=== PATIENT | female | born 1950 | race Caucasian/White ===

== ENCOUNTER 2020-08-28 17:00 | Emergency (ER) | payer SELFPAY ==
[2020-08-28 17:02] VITALS: BP 216/109; PULSE 100; RESP 18; TEMP 36.6; O2SAT 100
[2020-08-28 17:48] VITALS: BP 163/105; PULSE 91; O2SAT 98
--- NOTE | 2020-08-28 18:12 | ED.EYEPROB ---
HPI - Eye Problem General Chief complaint: Eye Problems Stated complaint: left eye blurry Time Seen by Provider: 08/28/20 17:10 Source: patient Mode of arrival: ambulatory Limitations: no limitations History of Present Illness HPI Narrative: 70-year-old with no major medical problems presents to the ER with a complaint of blurred vision to the left eye for past 2 days. Patient states that she woke up with some visual problems in the left eye which is progressively getting worse unable to focus. She denies any history of trauma. No history of any floaters. No previous history of any retinal detachment. chief complaint: vision change Onset (ago): day(s) (2) Onset description: gradual Duration: constant Location: left eye Eye Symptoms: blurry vision Place: home Mechanism: none Severity: mild Associated symptoms: none Related Data Home Medications Medication Instructions Recorded Confirmed No Home Medications 08/28/20 08/28/20 Allergies Allergy/AdvReac Type Severity Reaction Status Date / Time codeine Allergy Nausea and Verified 08/28/20 17:41 Vomiting Review of Systems Review of Systems: All systems reviewed & are unremarkable except as noted in HPI and below Constitutional: Constitutional: Reports no additional constitutional complaints Eyes: Eyes: Reports as per HPI ENT: Reports system reviewed and no additional complaints, except as documented Cardiovascular: Cardiovascular: Reports no additional cardiovascular complaints Respiratory: Respiratory: Reports no additional respiratory complaints Gastrointestinal: Gastrointestinal: Reports no additional gastrointestinal complaints Genitourinary: Genitourinary: Reports no additional female genitourinary complaints Musculoskeletal: Musculoskeletal: Reports no additional musculoskeletal complaints Neurologic: Reports system reviewed and no additional complaints, except as documented PMFSH Social History Social History Gender identity (if verbalized by the patient): Male Exam Narrative: Exam Narrative: GENERAL: Well-appearing, well-nourished, and in no acute distress. HEAD: Normocephalic, atraumatic. EYES: PERRLA and EOMI. fundus on the left side was hard to identify secondary to opacification of the lens ENT: Nares clear, no rhinorrhea or epistaxis. Mucous membranes moist. NECK: Supple. CHEST: Clear to auscultation. No respiratory distress. HEART: Regular rate and rhythm. No murmur heard. Normal peripheral pulses. EXTREMITIES: Normal range of motion. No edema. SKIN: Warm, dry, no rash. NEURO: No focal deficits. Alert and oriented x3. PSYCH: Normal mood and affect. Course Course Emergency Course: I discussed with Dr. Pérez ophthalmology at [facility] recommended patient to be transferred to the ER for evaluation. I discussed with the patient and her family they are willing to take her to the ER at this time. Vital Signs Vital signs: Vital Signs Temperature 36.6 C 08/28/20 17:02 Pulse Rate 100 08/28/20 17:02 Respiratory Rate 18 08/28/20 17:02 Blood Pressure 216/109 H 08/28/20 17:02 Pulse Oximetry 100 08/28/20 17:02 Temperature 36.6 C 08/28/20 17:02 Pulse Rate 91 08/28/20 17:48 Respiratory Rate 18 08/28/20 17:02 Blood Pressure 163/105 H 08/28/20 17:48 Pulse Oximetry 98 08/28/20 17:48 Discharge Plan Discharge Clinical Impression: Blurred vision, left eye Patient Disposition: Home, Self-Care Condition: Stable Instructions: Blurred Vision (ED) Additional Instructions: Advised to follow with Ophthalmology at [facility] ask for Dr. Pérez Prescriptions: No Action No Home Medications RF: 0 Follow-up/Referrals: PHYSICIAN,FLAG CAR DRIVER [Primary Care Provider] - Time of Disposition: 18:14
== END 2020-08-28 18:25 | disposition home or self-care (01) ==
PROVIDERS: Emergency Provider Family Medicine
DX: H53.8 Other visual disturbances (principal)
CPT/HCPCS: 99281

== ENCOUNTER 2022-07-18 14:06 | Inpatient (IN) | payer MEDICARE, SELFPAY ==
[2022-07-18] VITALS (19 sets, daily range): BP systolic 160–199; BP diastolic 80–106; PULSE 83–122; RESP 16–28; TEMP 36.4–37.1; O2SAT 90–100; BMI 30.5
--- NOTE | ~2022-07-18 | XR_ITS ---
XR chest 1V DATE: 07/18/2022 15:07 INDICATION: Fall. Shortness of breath. Chest pain since fall. TECHNIQUE: AP view COMPARISON: None FINDINGS: Heart size appears within normal limits. Is aortic arch calcification. No hilar or mediasti nal enlargement. No pulmonary infiltrate or consolidation, pleural effusion or pulmonary vascular congestion or pneumo thorax. There is osteopenia. IMPRESSION: No active cardiopulmonary disease Reviewed, dictated and finalized at location B.
--- NOTE | ~2022-07-18 | XR_ITS ---
XR surgery orthopedic DATE: 07/19/2022 19:11 INDICATION: ORIF left subcapital femoral neck fracture TECHNIQUE: 4 spot C-arm images of left hip 1 minute 26 seconds total exposure time [id number] mGym2 total dose area product COMPARISON: 07/18/2022 CDT left hip FINDINGS: There are 3 lag screws traversing the intertrochanteric area and femoral neck, terminating in the left femoral head, providing virtually anatomic position and alignment at the left subcapital femoral neck fracture. IMPRESSION: ORIF left subcapital femoral neck fracture Reviewed, dictated and finalized at Location A. Reviewed, dictated and finalized at location A.
--- NOTE | ~2022-07-18 | CT_ITS ---
CT OF left hip EXAMINATION: CT hip LT wo con DATE: 07/18/2022 17:25 INDICATION: Left hip fracture, surgical planning TECHNIQUE: Computed tomography (CT) of the left hip was performed without intravenous contrast. Autom ated exposure control and iterative reconstruction technique were employed. The dose-length product w as 515.94 mGy-cm. COMPARISON: X-ray left hip, same date FINDINGS: Distended urinary bladder. Atherosclerotic arterial calcifications. Osteopenia. Degenerative changes in the left hip. Minimally comminuted subcapital fracture of the left proximal femur, with minimal la teral and posterior angulation. No other fracture detected. IMPRESSION: Minimally angulated subcapital fracture of the left proximal femur. Reviewed, dictated and finalized at location K.
--- NOTE | ~2022-07-18 | XR_ITS ---
EXAMINATION: XR hip LT 2V w AP pelvis DATE: 07/23/2022 13:35 INDICATION: Left hip pain. TECHNIQUE: An anteroposterior view of the pelvis and 2 views of left hip were obtained. COMPARISON: Pelvis and left hip radiographs 07/18/2022 FINDINGS: There is a subcapital fracture of left femoral neck in near-anatomic alignment status post fixation with 3 lag screws. There is mild osteoarthritis of the hips. IMPRESSION: 1. Unchanged subcapital fracture of left femoral neck with internal fixation. 2. Mild osteoarthritis of the hips. Reviewed, dictated and finalized at location A.
--- NOTE | ~2022-07-18 | XR_ITS ---
EXAM: XR hip LT 2V w AP pelvis DATE: 07/18/2022 15:07 HISTORY: fall/pain, LEG TURNED OUT, LATERAL PAIN . COMPARISON: None available. FINDINGS: Normal mineralization. Subtle transverse subcapital lucency. No lytic or blastic lesion. D egenerative lumbar disc disease. Bilateral hip arthritis. No erosion or periosteal change. Soft tissu es within normal limits. IMPRESSION: Nondisplaced subcapital fracture of the left hip. Reviewed, dictated and finalized at location K.
[2022-07-18] MEDS: MORPHINE SULFATE (*CRX) 4 MG/ML INJ IV PUSH (14:30)
[2022-07-18 14:41] LABS: Basophils Absolute Auto 0.1 K/mm3 (0.0-0.1); Basophils Percent Auto 0.7 % (0.2-1.2); Eosinophils Absolute Auto 0.1 K/mm3 (0-0.3); Eosinophils Percent Auto 1.5 % (0-4.4); Hematocrit 42.1 % (37.0-47.0); Hemoglobin 14.7 g/dL (12.0-15.0); Immature Granulocyte Absolute 0.07 K/mm3 (0.00-0.031); Immature Granulocyte Percent A 0.9 % (0-0.5); Lymphocytes Absolute Auto 2.61 K/mm3 (0.9-3.2); Lymphocytes Percent Auto 32.6 % (18.3-44.2); Mean Corpuscular HGB Conc 34.9 g/dl (32-36); Mean Corpuscular Hemoglobin 31.7 pg (26-34); Mean Corpuscular Volume 90.7 fl (80-100); Mean Platelet Volume 9.8 fl (7.4-10.4); Monocytes Absolute Auto 0.6 K/mm3 (0.1-0.6); Monocytes Percent Auto 7.6 % (2.6-8.5); Neutrophils Absolute Auto 4.5 K/mm3 (1.3-6.7); Neutrophils Percent Auto 56.7 % (45.5-73.1); Platelet Count Result 243 k/mm3 (150-375); Red Blood Count 4.64 M/mm3 (4.2-5.4); Red Cell Distribution Width 12.9 % (11.5-14.5)
[2022-07-18 14:50] LABS: Prothrombin Time 13.2 Seconds (11.1-14.7)
[2022-07-18 14:52] LABS: Partial Thromboplastin Time 25.9 SECONDS (22.3-36.8)
[2022-07-18 14:53] LABS: Alanine Aminotransferase 48 U/L (6-35); Albumin Level 4.5 g/dL (3.5-5.1); Alkaline Phosphatase 65 U/L (38-126); Anion Gap 9 mmol/L (8-16); Aspartate Amino Transferase 50 U/L (14-36); Bilirubin,Total 0.6 mg/dL (0.2-1.3); Blood Urea Nitrogen 15 mg/dL (7-17); Calcium 9.5 mg/dL (8.4-10.2); Carbon Dioxide 25 mmol/L (22-30); Chloride 106 mmol/L (98-107); Estimated CRCL calculation 57 ml/min; Estimated Glomerular Filt Rate > 60; Glucose 97 mg/dL (65-110); Potassium 3.9 mmol/L (3.4-5.0); Sodium 140 mmol/L (137-145)
[2022-07-18 14:57] LABS: Appearance Urine Clear (Clear); Bacteria Urine None Seen /hpf; Bilirubin Urine Negative (Negative); Blood Urine 1+ (Negative); Color Urine Yellow (Yellow); Glucose Urine UA Negative (Negative); Ketones Urine Negative (Negative); Leukocyte Esterase Ur Negative LEU/UL (Negative); Nitrate Urine Negative (Negative); Non Pathogenic Casts 0-2; Protein Urine Negative (Negative); Specific Grav Ur 1.006 (1.001-1.035); Squamous Epithelial Cell Urine None seen /hpf (Few); Urobilinogen Urine 0.2 mg/dL (<2.0); WBC Urine 0-5 /hpf; pH Urine 6.5 (5.0-9.0)
[2022-07-18 15:17] LABS: Add Urine Microscopic? YES
[2022-07-18] MEDS: ONDANSETRON INJ 4 MG/2 ML VIAL (16:12)
--- NOTE | 2022-07-18 16:13 | ED.FALL ---
HPI - Fall General Chief Complaint: Fall Stated Complaint: fall/femur pain Time Seen by Provider: 07/18/22 14:14 History of Present Illness HPI Narrative: Patient is a 72-year-old female who presents ER with left hip pain. She tripped and fell while bringing in her groceries. Unable to stand up due to pain in her hip. She did not strike her head or lose consciousness. No fevers or chills or sweats. Has no numbness or tingling to the affected extremity. Related Data Home Medications Medication Instructions Recorded Confirmed No Home Medications 08/28/20 07/18/22 Allergies Allergy/AdvReac Type Severity Reaction Status Date / Time codeine Allergy Nausea and Verified 07/18/22 14:38 Vomiting Review of Systems Review of Systems: All systems reviewed & are unremarkable except as noted in HPI and below Constitutional: Constitutional: Denies chills, Denies fatigue and Denies fever(s) Cardiovascular: Cardiovascular: Denies chest pain and Denies rapid heart rate Gastrointestinal: Gastrointestinal: Denies abdominal pain, Denies nausea and Denies vomiting Musculoskeletal: Musculoskeletal: Denies myalgias, Reports arthralgias and Denies joint swelling Neurologic: Denies syncope, Denies headache(s), Denies focal weakness and Denies numbness PMFSH Past Medical History Medical History (Updated 07/18/22 @ 21:46 by Cipriano Ames MD) Tobacco dependence Surgical History Surgical History (Updated 07/18/22 @ 21:05 by Ju Avila PA-C) No history of previous surgery Family History Family History (Updated 07/18/22 @ 21:05 by Ju Avila PA-C) Other Heart disease Hypertension Social History Social History (Updated 07/18/22 @ 21:05 by Ju Avila PA-C) Social History: Surrogate medical decision maker: Miguel Hines, son. Code status: Full code. Smoking packs per day: 1 Smoking cigarettes per day: 20.0 Smoking status: Current every day smoker Tobacco type: cigarettes Alcohol intake: never Substance use: never Lack of Transportation: No Lack of Food: Never True Current Housing: I Have Housing Concerned About Future Housing: No Difficulty Paying Gas/Electric Bills: No Difficulty Paying for Meds: No Currently Unemployed: No Education: High School Diploma/GED Difficulty w/ Childcare or Family Care: No Additional living arrangements comments: Lives in [place] with son. Additional occupation/education comments: Retired. Spiritual care concerns: No Exam Narrative: GENERAL: Well-appearing, well-nourished, and in no acute distress. HEAD: Normocephalic, atraumatic. EYES: PERRL and EOMI. ENT: Mucous membranes moist. CHEST: Clear to auscultation. No respiratory distress. HEART: Regular rate and rhythm. Normal peripheral pulses. ABDOMEN: Soft, nontender, nondistended. EXTREMITIES: Left lower extremity tenderness at the hip and unable to perform range of motion due to pain. No shortening or external rotation. Normal upper extremities. SKIN: Warm, dry, no rash. NEURO: Alert and oriented x3. PSYCH: Normal mood and affect. Course Course Emergency Course: Patient made aware of diagnosis and treatment plan. Admit to the hospitalist service. Orthopedic surgery Dr. Barclay will be caring for the fractured hip. Vital Signs Vital signs: Vital Signs Temperature 98 F 07/18/22 14:10 Pulse Rate 91 07/18/22 14:10 Respiratory Rate 18 07/18/22 14:10 Blood Pressure 198/93 H 07/18/22 14:10 Pulse Oximetry 100 07/18/22 14:10 Oxygen Delivery Room Air 07/18/22 14:10 Temperature 97.6 F 07/18/22 20:50 Pulse Rate 95 07/18/22 20:50 Respiratory Rate 16 07/18/22 20:50 Blood Pressure 160/90 H 07/18/22 20:50 Pulse Oximetry 93 07/18/22 20:50 Oxygen Delivery Room Air 07/18/22 18:57 MDM - Fall Lab Data 07/18/22 14:33 07/18/22 14:33 Labs: Lab Results 07/18/22 07/18/22
--- NOTE | 2022-07-18 16:26 | ECG_ITS ---
Measurements Intervals [place] Rate: 104 P: 41 [place]: 140 QRS: -5 QRSD: 99 T: 24 QT: 349 QTc: 459 Interpretive Statements SINUS TACHYCARDIA DELAYED PRECORDIAL R/S TRANSITION BORDERLINE ECG NO PREVIOUS ECG AVAILABLE FOR COMPARISON Electronically Signed On 07-18-2022 20:54:46 CDT by Randall Dalal D.O.
--- NOTE | 2022-07-18 17:00 | PM.IMHP ---
H&P: HPI History of Present Illness Date/Time: 07/18/22 17:00 Chief Complaint: Left hip pain after fall. Narrative: This is a pleasant 72-year-old female smoker with no reported medical problems (she has not seen a doctor for over 20 years) who presented to the emergency department via EMS from home for evaluation of left hip pain after fall. Patient provides the following history. Not long prior to arrival she was caring groceries into the house, lost her balance, and fell onto her left side. She had immediate pain in her left hip and was unable to get herself up. Son was able to get her into a chair but she was unable to bear weight and the ambulance was called. She was found to have a left subcapital fracture and she is being admitted in this setting. She sustained no other injuries in the fall and states there was no head trauma or loss of consciousness. There were no antecedent symptoms prior to the fall and she states it was purely mechanical. Her pain is manageable as long as she is not moving. She has pretty significant shooting pain in the hip with any movement, however. She denies paresthesias, skin color, and temperature changes distal to the fracture site. She was afebrile on arrival to the ED. Blood pressures have been persistently elevated in the 160s to 180 systolic. The rest of her vital signs have been stable. Labs were pretty unremarkable aside from mild AST and ALT elevation. Chest x-ray showed no acute cardiopulmonary disease. EKG showed sinus tachycardia with delayed precordial R/S transition. She is being admitted in this setting for surgical repair per Dr. Sanford. Review of Systems Review of Systems: Twelve systems were reviewed. No fever, chills, or sweats. No recent cold or flu symptoms. No exertional chest pain or shortness of breath. No history of venous thromboembolism. Except as documented, all other systems were reviewed and are negative. [facility] Past Medical History Medical History (Updated 07/18/22 @ 21:05 by Ju Avila PA-C) Tobacco dependence Surgical History Surgical History (Updated 07/18/22 @ 21:05 by Ju Avila PA-C) No history of previous surgery Family History Family History (Updated 07/18/22 @ 21:05 by Ju Avila PA-C) Other Heart disease Hypertension Social History Social History (Updated 07/18/22 @ 21:05 by Ju Avila PA-C) Social History: Surrogate medical decision maker: Miguel Hines, son. Code status: Full code. Smoking packs per day: 1 Smoking cigarettes per day: 20.0 Smoking status: Current every day smoker Tobacco type: cigarettes Alcohol intake: never Substance use: never Lack of Transportation: No Lack of Food: Never True Current Housing: I Have Housing Concerned About Future Housing: No Difficulty Paying Gas/Electric Bills: No Difficulty Paying for Meds: No Currently Unemployed: No Education: High School Diploma/GED Difficulty w/ Childcare or Family Care: No Additional living arrangements comments: Lives in [place] with son. Additional occupation/education comments: Retired. Spiritual care concerns: No Meds Home Medications and Allergies Home Medications Medication Instructions Recorded Confirmed Type No Home Medications 08/28/20 07/18/22 History Allergies Allergy/AdvReac Type Severity Reaction Status Date / Time codeine Allergy Nausea and Verified 07/18/22 14:38 Vomiting Vital Signs Vital Signs - 24 hr 07/18/22 14:10 07/18/22 14:38 07/18/22 14:45 Temperature 98 F Pulse Rate 91 83 Respiratory Rate 18 26 H Blood Pressure 198/93 H Pulse Oximetry 100 100 100 Oxygen Delivery Room Air 07/18/22 15:07 07/18/22 15:15 07/18/22 15:30 Temperature Pulse Rate 97 90 122 H Respiratory Rate 24 H 20 19 Blood Pressure Pulse Oximetry 95 97 96 Oxygen Delivery 07/18/22 15:45 07/18/22 15:48 07/18/22 15:49 Temperature Pulse Rate
[2022-07-18] MEDS: ONDANSETRON INJ 4 MG/2 ML VIAL IV PUSH (17:11)
--- NOTE | 2022-07-18 18:48 | ADMGEN ---
This patient, Amy Bee, was admitted to Medical Room 251-. Patient/family oriented to hospital policies and general routines including ID bracelet, bed and alarms, visiting hours, pain management, procedures, bathroom and other care routines, personal items, smoking policy, room service/diet, and visiting hours. Information on how to activate the Rapid Response Team has been discussed. Patient/Family are encouraged to report perceived risks to care and to ask questions if they do not understand what they are told or what they should do.
[2022-07-19] VITALS (13 sets, daily range): BP systolic 112–189; BP diastolic 77–100; PULSE 96–122; RESP 16–26; TEMP 36.7–37.8; O2SAT 91–99
[2022-07-19 05:55] LABS: Hematocrit 42.3 % (37.0-47.0); Hemoglobin 14.8 g/dL (12.0-15.0); Mean Corpuscular Hemoglobin 32.6 pg (26-34); Mean Corpuscular Volume 93.2 fl (80-100); Mean Platelet Volume 10.1 fl (7.4-10.4); Platelet Count Result 215 k/mm3 (150-375); Red Blood Count 4.54 M/mm3 (4.2-5.4)
[2022-07-19 06:09] LABS: Alanine Aminotransferase 44 U/L (6-35); Albumin Level 4.5 g/dL (3.5-5.1); Alkaline Phosphatase 58 U/L (38-126); Anion Gap 8 mmol/L (8-16); Aspartate Amino Transferase 43 U/L (14-36); Bilirubin,Total 0.7 mg/dL (0.2-1.3); Blood Urea Nitrogen 15 mg/dL (7-17); Calcium 9.2 mg/dL (8.4-10.2); Carbon Dioxide 26 mmol/L (22-30); Chloride 105 mmol/L (98-107); Estimated CRCL calculation 64 ml/min; Estimated Glomerular Filt Rate > 60; Glucose 119 mg/dL (65-110); Magnesium 2.2 mg/dL (1.6-2.3); Potassium 3.8 mmol/L (3.4-5.0); Sodium 139 mmol/L (137-145)
[2022-07-19 06:49] LABS: Thyroid Stimulating Hormone Reflex 0.864 uIU/mL (0.465-4.68)
--- NOTE | 2022-07-19 07:34 | PM.CNOR ---
Assessment and Plan Assessment and plan (1) Subcapital fracture of left hip: Code(s): S72.012A - Unspecified intracapsular fracture of left femur, initial encounter for closed fracture Status: Acute Assessment and Plan: Patient is a 72-year-old female who fell yesterday could not get up due to severe pain in the left hip was brought to the emergency room and x-rays demonstrated a mildly valgus impacted otherwise nondisplaced left subcapital femoral neck fracture. CT scan performed showed slight comminution in the area of impaction anteriorly but overall acceptable mild valgus alignment. No lytic lesion noted. She was admitted last evening with plans to repair the hip fracture today. She never sees a doctor. She states she is stop her. She smokes a pack of cigarettes per day. She denies drinking alcohol. Her liver enzymes are mildly elevated AST and ALT a little bit improved today compared to yesterday. She denies any history of chest pain or shortness of breath problems. Laboratory studies are otherwise unremarkable. White count up to 13 this morning which is consistent with stress of having a fracture. Urinalysis was unremarkable. Creatinine 0.7 Her glucose was mildly elevated today 119. On examination there was no rotational deformity of the left leg. She has palpable pedal pulses the skin looks normal. There is no obvious bruising that I can see in the side of the hip. She does have severe pain in the hip and groin area with the slightest movement of her left foot. She denies numbness or tingling to light touch testing in left foot. She does have a bruise over the lateral aspect of her left elbow but has full range of motion of the elbow without discomfort. She denies any other injury. Impression: Patient has mild valgus impacted left subcapital femoral neck fracture which is in satisfactory position to consider screw fixation insight to as definitive treatment for this fracture and that would be my recommendation to her. I have discussed with her that she is at some increased risk of nonunion of her fracture and avascular necrosis because of her chronic smoking history and medical complications such as blood clots. We will apply SCDs and see if she can tolerate that. If she cannot then we will wait until after surgery which is planned for this afternoon. I have discussed the possibility that if she develops nonunion she may require a partial hip replacement. She is at increased risk for complications of that surgery because of her, chronic smoking history as well. I would recommend that she stop smoking completely at this time. We will check a 25 hydroxy vitamin-D level. Risks of surgery include medical complications such as heart attack stroke pulmonary embolism and . Not stabilizing the fracture would have an unacceptably high risk of displacement nonunion and other complications. We will proceed this afternoon as discussed. History of Present Illness HPI Consult date: 07/19/22 Chief complaint: hip fracture [facility] Past Medical History Medical History (Updated 07/18/22 @ 21:46 by Cipriano Ames MD) Tobacco dependence Surgical History Surgical History (Updated 07/18/22 @ 21:05 by Ju Avila PA-C) No history of previous surgery Family History Family History (Updated 07/18/22 @ 21:05 by Ju Avila PA-C) Other Heart disease Hypertension Social History Social History (Updated 07/18/22 @ 21:05 by Ju Avila PA-C) Social History: Surrogate medical decision maker: Miguel Hines, son. Code status: Full code. Smoking packs per day: 1 Smoking cigarettes per day: 20.0 Smoking status: Current every day smoker Tobacco type: cigarettes Alcohol intake: never Substance use: never Lack of Transportation: No Lack of Food: Never True Current Housing: I Have Housing Concerned About Future Housing: No Difficulty Paying Gas/Electric Bills:
[2022-07-19 08:19] LABS: Vitamin D 25 Hydroxy 46.5 ng/mL
[2022-07-19] MEDS: hydrALAZINE HCL 20 MG/ML VIAL 10 MG IV PUSH (08:19)
--- NOTE | 2022-07-19 08:30 | PM.IMPN ---
Progress Note: A&P Assessment and Plan (1) Subcapital fracture of left hip: Code(s): S72.012A - Unspecified intracapsular fracture of left femur, initial encounter for closed fracture Status: Acute Assessment and Plan: POD 0 hip x-ray shows nondisplaced the capital fracture of the left hip hip CT shows minimally angulated subcapital fracture left proximal femur orthopedics has been consulted DVT prophylaxis per ortho pain medications on board postop care per Ortho PT and OT when appropriate surgical intervention scheduled for this afternoon (2) Fall from ground level: Code(s): W18.30XA - Fall on same level, unspecified, initial encounter Status: Acute Assessment and Plan: fall precautions PT and OT when appropriate (3) Elevated blood pressure reading: Code(s): R03.0 - Elevated blood-pressure reading, without diagnosis of hypertension Status: Acute Assessment and Plan: blood pressure 182/84 today no home medications elevation could be contributed by pain p.r.n. hydralazine for now continue trend consider initiation of control postop and with pain control (4) Elevated LFTs: Code(s): R79.89 - Other specified abnormal findings of blood chemistry Status: Acute Assessment and Plan: AST/ALT 43/44 today mild elevation patient is a known drinker patient to follow-up outpatient will continue trend (5) Tobacco dependence: Code(s): F17.200 - Nicotine dependence, unspecified, uncomplicated Status: Acute Assessment and Plan: smoking cessation education has been given patch and gum available p.r.n. Time Spent With Patient Time: 51 minutes Time with patient: Greater than 35 minutes Subjective Date/time seen: 07/19/22829 Interval history: 07/19/22829 Patient was lying in bed. She did state that she feels terrible. She also stated that she is feeling better than she was however she is still having some pain. She denies any chest pain, shortness a breath, nausea, vomiting, diarrhea or constipation. Labs and vital signs remained stable. Patient is scheduled for surgical intervention to day with Dr. Sanford. 07/18/22? 17:00 This is a pleasant 72-year-old female smoker with no reported medical problems (she has not seen a doctor for over 20 years) who presented to the emergency department via EMS from home for evaluation of left hip pain after fall. Patient provides the following history. Not long prior to arrival she was caring groceries into the house, lost her balance, and fell onto her left side. She had immediate pain in her left hip and was unable to get herself up. Son was able to get her into a chair but she was unable to bear weight and the ambulance was called. She was found to have a left subcapital fracture and she is being admitted in this setting. She sustained no other injuries in the fall and states there was no head trauma or loss of consciousness. There were no antecedent symptoms prior to the fall and she states it was purely mechanical. Her pain is manageable as long as she is not moving. She has pretty significant shooting pain in the hip with any movement, however. She denies paresthesias, skin color, and temperature changes distal to the fracture site. She was afebrile on arrival to the ED. Blood pressures have been persistently elevated in the 160s to 180 systolic. The rest of her vital signs have been stable. Labs were pretty unremarkable aside from mild AST and ALT elevation. Chest x-ray showed no acute cardiopulmonary disease. EKG showed sinus tachycardia with delayed precordial R/S transition. She is being admitted in this setting for surgical repair per Dr. Sanford. Review of Systems Review of Systems: All systems reviewed & are unremarkable except as noted in HPI and be
--- NOTE | 2022-07-19 11:14 | PC.NURSE ---
On 07/19/22, the student, [Scott Tavares], provided care and completed [facility] documentation on this patient. I have reviewed the student's documentation and agree with the findings.
[2022-07-19] MEDS: LACTATED RINGERS 1,000 ML 30 ML IV CONT ×3 (15:25→19:07)
--- NOTE | 2022-07-19 16:12 | WPDHPUPDATE1 ---
History and Physical Update Update Date/Time: 07/19/22 16:12 History and Physical has been reviewed, including an updated exam of the patient. There are NO changes in the patient's condition. Risks, benefits, and alternatives have been discussed and questions answered. Patient agrees to proceed with procedure.
--- NOTE | 2022-07-19 16:14 | WPDHPUPDATE1 ---
History and Physical Update Update Date/Time: 07/19/22 16:14 History and Physical has been reviewed, including an updated exam of the patient. There are NO changes in the patient's condition. Risks, benefits, and alternatives have been discussed and questions answered. Patient agrees to proceed with procedure.
--- NOTE | 2022-07-19 17:40 | WPDANESEPPF ---
Anes - Initial Pre Proc Eval Procedure: Operation Date: 07/19/22 16:30 Proposed Procedures p Left Hip Pinning - Richie Sanford MD Date/Time: 07/19/22 17:40 Surgeon: Phill Asif MD Pre Op Diagnosis: hip fracture Patient Data Age: 72 Gender: F Height: 1.63 m Weight: 81.9 kg Last Vital Signs Temp 37.0 C 07/19/22 15:34 Pulse 100 07/19/22 15:34 Resp 18 07/19/22 15:34 BP 176/93 H 07/19/22 15:34 Pulse Ox 94 07/19/22 15:34 O2 Del Method Room Air 07/19/22 15:34 Allergies Allergy/AdvReac Type Severity Reaction Status Date / Time codeine Allergy Nausea and Verified 07/19/22 15:26 Vomiting Home Medications Medication Instructions Recorded Confirmed Type No Home Medications 08/28/20 07/18/22 History Laboratory Tests 07/19/22 07/19/22 07/19/22 05:27 05:33 05:33 WBC 13.0 K/mm3 H K/mm3 (4.5-10.0) RBC 4.54 M/mm3 M/mm3 (4.2-5.4) Hgb 14.8 g/dL g/dL (12.0-15.0) Hct 42.3 % % (37.0-47.0) MCV 93.2 fl fl (80-100) MCH 32.6 pg pg (26-34) MCHC 35.0 g/dl g/dl (32-36) RDW 13.0 % % (11.5-14.5) Plt Count 215 k/mm3 k/mm3 (150-375) MPV 10.1 fl fl (7.4-10.4) Sodium 139 mmol/L mmol/L (137-145) Potassium 3.8 mmol/L mmol/L (3.4-5.0) Chloride 105 mmol/L mmol/L (98-107) Carbon Dioxide 26 mmol/L mmol/L (22-30) Anion Gap 8 mmol/L mmol/L (8-16) BUN 15 mg/dL mg/dL (7-17) Creatinine 0.70 mg/dL mg/dL (0.7-1.0) Estim Creat Clear Calc 64 ml/min ml/min Estimated GFR > 60 (59 - ) Glucose 119 mg/dL H mg/dL (65-110) Calcium 9.2 mg/dL mg/dL (8.4-10.2) Magnesium 2.2 mg/dL mg/dL (1.6-2.3) Total Bilirubin 0.7 mg/dL mg/dL (0.2-1.3) AST 43 U/L H U/L (14-36) ALT 44 U/L H U/L (6-35) Alkaline Phosphatase 58 U/L U/L (38-126) Total Protein 8.0 g/dL g/dL (6.3-8.2) Albumin 4.5 g/dL g/dL (3.5-5.1) Vitamin D 25-Hydroxy 46.5 ng/mL ng/mL TSH (Reflex) 07/19/22 05:33 WBC RBC Hgb Hct MCV MCH MCHC RDW Plt Count MPV Sodium Potassium Chloride Carbon Dioxide Anion Gap BUN Creatinine Estim Creat Clear Calc Estimated GFR Glucose Calcium Magnesium Total Bilirubin AST ALT Alkaline Phosphatase Total Protein Albumin Vitamin D 25-Hydroxy TSH (Reflex) 0.864 uIU/mL uIU/mL (0.465-4.68) Patient hx anesthesia problems: none Family hx anesthesia problems: none Results Review: All pre-operative results and documents have been reviewed as part of the pre-operative evaluation. [facility] Past Medical History Medical History Tobacco dependence Surgical History Surgical History No history of previous surgery Family History Family History Other Heart disease Hypertension Social History Social History Social History: Surrogate medical decision maker: Miguel Hines, son. Code status: Full code. Smoking packs per day: 1 Smoking cigarettes per day: 20.0 Smoking status: Current every day smoker Tobacco type: cigarettes Alcohol intake: never Substance use: never Lack of Transportation: No Lack of Food: Never True Current Housing: I Have Housing Concerned About Future Housing: No Difficulty Paying Gas/Electric Bills: No Difficulty Paying for Meds: No Currently Unemployed: No Education: High School Diploma/GED Diffic
[2022-07-19] MEDS: ceFAZolin 2 GM/D5W 50 ML 2 GM/50 ML BAG IVPB (17:52)
[2022-07-19] MEDS: ceFAZolin SODIUM 1 GM VIAL (18:25)
--- NOTE | 2022-07-19 18:50 | SUR.OPER ---
3 CANNULATED 7.0 CANNULATED SCREWS AOS/[id number], [id number] LEFT HIP
--- NOTE | 2022-07-19 18:52 | W.PM.PROC2 ---
Procedure Note - Detailed Date of Procedure 07/19/22 Pre-op Diagnosis Minimally impacted left subcapital femoral neck fracture Post-op Diagnosis Same Procedure Performed Screw fixation insight to left subcapital femoral neck fracture Surgeon Richie Sanford MD Anesthesia General Description of Procedure Patient was brought to the operating room and general anesthesia was administered. Left hip was scrubbed with the chlorhexidine cloth. She was transferred to the fracture table boot applied the foot without traction the right hip flex abduct out of the way and the left hip prepped draped usual fashion. A 1 in incision was made over the lateral thigh using fluoroscopy to assist in locating this. After skin incision 10 cc 1% plain lidocaine were injected in the soft tissues for local anesthesia. A guide pin using the Arthrex 7.0 cannulated hip screw system was inserted inferiorly centrally a 2nd guide pin a little bit posterior and superior and 3rd anterior superior. We measured drilled and placed 37.0 mm Arthrex hip screws the 85 mm inferiorly and 2 75 mm srews superiorly. Each screw had surprisingly good purchase. The screws were left each greater than 5 mm from subchondral bone. Fluoroscopic imaging through a circular arc confirmed absence of penetration screw through femoral head. Guide pins removed wound irrigated with antibiotic solution closed with 2 subcutaneous Vicryl and glue EBL was less than 5 cc. She was transferred postop recovery room in good condition. She tolerated the anesthesia well.
--- NOTE | 2022-07-19 18:59 | SUR.OPER ---
SEE ANESTHESIA RECORD FOR POOR DENTITION. VERIFIED LOOSE TEETH PRIOR TO INTUBATION
--- NOTE | 2022-07-19 19:11 | SUR.OPER ---
ALL LOOSE TEETH INTACT POST EXTUBATION SEE ANESTHESIA RECORD VERIFIED WITH ANESTHESIA.
[2022-07-19] MEDS: ACETAMINOPHEN 325 MG TABLET 650 MG PO (20:39)
[2022-07-19] MEDS: oxyCODONE HCL (*CRX) 2.5 MG TAB IR PO (20:39)
[2022-07-19] MEDS: SODIUM CHLORIDE 0.9% IV 1,000 ML 125 ML IV CONT (20:40)
[2022-07-20 00:33] VITALS: BP 165/91; PULSE 100; RESP 16; TEMP 36.7; O2SAT 92
[2022-07-20] MEDS: oxyCODONE HCL (*CRX) 2.5 MG TAB IR PO ×3 (01:28→11:16)
[2022-07-20] MEDS: ceFAZolin 1 GM/NS 50 ML 1 GM/50 ML BAG IVPB ×3 (01:28→17:02)
[2022-07-20] MEDS: IBUPROFEN IV 800 MG/200 ML 800 MG/200 ML BAG 400 MG IVPB (02:39)
[2022-07-20] MEDS: ACETAMINOPHEN 325 MG TABLET 650 MG PO ×2 (05:42→17:01)
[2022-07-20 07:00] VITALS: BP 172/89; PULSE 97; RESP 18; TEMP 36.4; O2SAT 91
--- NOTE | 2022-07-20 07:37 | PM.PNORT ---
Subjective Subjective Date/Time Seen: 07/20/22 07:37 postop day 1 patient is alert. She is afebrile, blood pressure still elevated. Pain overall is well controlled. Incision is dry. Neurovascularly she is intact. She has not been out of bed yet. Therapy will work with her today. I talked with the patient about discharge. We will see how she does the next day or 2 with physical therapy and whether not she is doing well enough to go home on her own with her son or whether not she may need to go to a rehab facility depending on how she does. Morning labs are noted Objective Data Vital Signs Vital Signs: Vital Signs - 24 hr 07/19/22 08:00 07/19/22 09:40 07/19/22 13:50 Temperature 37.8 C H Pulse Rate 96 102 H Respiratory Rate 16 16 Blood Pressure 178/77 H Pulse Oximetry 94 96 Oxygen Delivery Room Air Room Air Oxygen Flow Rate 07/19/22 15:34 07/19/22 19:07 07/19/22 19:20 Temperature 37.0 C 36.8 C Pulse Rate 100 122 H 118 H Respiratory Rate 18 26 H 19 Blood Pressure 176/93 H 112/78 189/86 H Pulse Oximetry 94 97 98 Oxygen Delivery Room Air Simple Face Mask Simple Face Mask Oxygen Flow Rate 6 6 07/19/22 19:35 07/19/22 19:50 07/19/22 20:25 Temperature 36.8 C Pulse Rate 112 H 111 H 105 H Respiratory Rate 19 21 H 16 Blood Pressure 176/100 H 172/99 H 187/95 H Pulse Oximetry 96 96 99 Oxygen Delivery Nasal Cannula Nasal Cannula Oxygen Flow Rate 2 2 07/19/22 20:48 07/19/22 22:05 07/19/22 23:09 Temperature 36.9 C 36.7 C 36.8 C Pulse Rate 103 H 102 H 103 H Respiratory Rate 16 16 16 Blood Pressure 177/91 H 186/90 H 185/93 H Pulse Oximetry 93 91 95 Oxygen Delivery Oxygen Flow Rate 07/19/22 20:00 07/20/22 00:33 Temperature 36.7 C Pulse Rate 100 Respiratory Rate 16 Blood Pressure 165/91 H Pulse Oximetry 95 92 Oxygen Delivery Nasal Cannula Oxygen Flow Rate 1 Intake/Output Intake/Output: Intake & Output 07/17/22 07/18/22 07/19/22 07/20/22 23:59 23:59 23:59 23:59 Intake Total 525 Output Total 700 Balance -175 Meds/Results Medications: Active Medications Generic Name Dose Route Start Last Admin Trade Name Freq PRN Reason Stop Dose Admin Acetaminophen 650 mg 07/19/22 20:03 07/20/22 05:42 Acetaminophen 325 Mg Tablet PO 650 mg Q6HR THANIA Administration Apixaban 2.5 mg 07/20/22 09:00 Apixaban 2.5 Mg Tablet PO Q12HR [facility] Hydralazine HCl 10 mg 07/19/22 07:11 Hydralazine Hcl 20 Mg/Ml Vial IV PUSH Q8H PRN Blood Pressure - High Cefazolin Sodium 1 gm in 50 mls @ 100 mls/hr 07/20/22 02:00 07/20/22 01:28 Ancef 1 Gm/Ns 50 Ml IVPB 100 mls/hr Q8H THANIA Administration Sodium Chloride 1,000 mls @ 125 mls/hr 07/19/22 20:03 07/19/22 20:40 Normal Saline Iv IV CONT 125 mls/hr .Q8H THANIA Administration Morphine Sulfate 2 mg 07/19/22 20:03 Morphine Sulfate (*Crx) 2 Mg/Ml Inj IV PUSH Q1H PRN Pain Rated 7-10 Naloxone HCl 0.1 mg 07/19/22 20:03 Naloxone Hcl 0.4 Mg/Ml Vial IV PUSH Q2M PRN Opiate Reversal Oxycodone HCl 2.5 mg 07/19/22 20:10 07/20/22 05:42 Oxycodone Hcl (*Crx) 2.5 Mg Tab Ir PO 2.5 mg Q4HR THANIA Administration Oxycodone HCl 2.5 mg 07/19/22 20:03 Oxycodone Hcl (*Crx) 2.5 Mg Tab Ir PO Q4H PRN Pain Rated 7-10 Polyethylene Glycol 17 gm 07/20/22 09:00 Polyethylene Glycol 3350 17 Gm Powd.Pack PO QAM THANIA Senna/Docusate Sodium 2 tab 07/20/22 09:00 Senna/Docusate Sodium Tablet PO BID [facility] Radiology Results: ITS Impressions Chest X-Ray 07/18/22 15:08 IMPRESSION: No active cardiopulmonary disease Hip/Pelvis X-Ray 07/18/22 15:08 IMPRESSION: Nondisplaced subcapital fracture of the left hip. Hip CT 07/18/22 17:27 IMPRESSION: Minimally angulated subcapital fracture of the left proximal femur. Intraoperative X-Ray 07/19/22 21:48 IMPRESSION: ORIF left subcapital femoral neck fracture
[2022-07-20 07:51] LABS: Basophils Percent Auto 0.2 % (0.2-1.2); Hemoglobin 14.9 g/dL (12.0-15.0); Immature Granulocyte Absolute 0.05 K/mm3 (0.00-0.031); Immature Granulocyte Percent A 0.4 % (0-0.5); Lymphocytes Absolute Auto 0.78 K/mm3 (0.9-3.2); Lymphocytes Percent Auto 6.9 % (18.3-44.2); Mean Corpuscular HGB Conc 33.9 g/dl (32-36); Mean Corpuscular Hemoglobin 32.2 pg (26-34); Mean Platelet Volume 10.7 fl (7.4-10.4); Monocytes Absolute Auto 0.7 K/mm3 (0.1-0.6); Monocytes Percent Auto 6.6 % (2.6-8.5); Neutrophils Absolute Auto 9.7 K/mm3 (1.3-6.7); Neutrophils Percent Auto 85.9 % (45.5-73.1); Platelet Count Result 208 k/mm3 (150-375); Red Blood Count 4.63 M/mm3 (4.2-5.4); Red Cell Distribution Width 13.2 % (11.5-14.5); White Blood Count 11.3 K/mm3 (4.5-10.0)
[2022-07-20] MEDS: SODIUM CHLORIDE 0.9% IV 1,000 ML 125 ML IV CONT (07:54)
[2022-07-20 08:02] LABS: Alanine Aminotransferase 31 U/L (6-35); Albumin Level 4.2 g/dL (3.5-5.1); Alkaline Phosphatase 56 U/L (38-126); Anion Gap 6 mmol/L (8-16); Aspartate Amino Transferase 31 U/L (14-36); Bilirubin,Total 0.6 mg/dL (0.2-1.3); Blood Urea Nitrogen 17 mg/dL (7-17); Calcium 8.7 mg/dL (8.4-10.2); Carbon Dioxide 26 mmol/L (22-30); Chloride 108 mmol/L (98-107); Estimated CRCL calculation 58 ml/min; Estimated Glomerular Filt Rate > 60; Glucose 103 mg/dL (65-110); Magnesium 2.2 mg/dL (1.6-2.3); Potassium 3.8 mmol/L (3.4-5.0); Sodium 140 mmol/L (137-145)
[2022-07-20] MEDS: ONDANSETRON INJ 4 MG/2 ML VIAL IV PUSH (10:04)
--- NOTE | 2022-07-20 10:46 | PC.NURSE ---
Student nurse attempted passing medications and pt was too nauseous/vomiting and refused. Will attempt again soon.
[2022-07-20] MEDS: SENNA/DOCUSATE SODIUM TABLET 2 TAB PO ×2 (10:52→17:01)
[2022-07-20] MEDS: APIXABAN 2.5 MG TABLET PO ×2 (10:52→20:18)
[2022-07-20] MEDS: lisinopriL 5 MG TABLET PO (10:53)
[2022-07-20 11:00] VITALS: BP 182/87
[2022-07-20] MEDS: hydrALAZINE HCL 20 MG/ML VIAL 10 MG IV PUSH (11:16)
[2022-07-20] MEDS: METOCLOPRAMIDE HCL INJ 10 MG/2 ML VIAL IV PUSH (11:49)
--- NOTE | 2022-07-20 12:00 | PM.IMPN ---
Progress Note: A&P Assessment and Plan (1) Subcapital fracture of left hip: Code(s): S72.012A - Unspecified intracapsular fracture of left femur, initial encounter for closed fracture Status: Acute Assessment and Plan: POD 1 hip x-ray shows nondisplaced the capital fracture of the left hip hip CT shows minimally angulated subcapital fracture left proximal femur orthopedics has been consulted DVT prophylaxis eliquis pain medications on board postop care per Ortho PT and OT ordered Ask nurse to call for weight bearing status (2) Fall from ground level: Code(s): W18.30XA - Fall on same level, unspecified, initial encounter Status: Acute Assessment and Plan: fall precautions PT and OT ordered Awaiting weight bearing status (3) Elevated blood pressure reading: Code(s): R03.0 - Elevated blood-pressure reading, without diagnosis of hypertension Status: Acute Assessment and Plan: blood pressure 172/89 today no home medications elevation could be contributed by pain p.r.n. hydralazine for now Added lisinopril 5mg PO daily continue trend consider initiation of control postop and with pain control (4) Elevated LFTs: Code(s): R79.89 - Other specified abnormal findings of blood chemistry Status: Acute Assessment and Plan: AST/ALT today mild elevation patient is a known drinker patient to follow-up outpatient will continue trend (5) Tobacco dependence: Code(s): F17.200 - Nicotine dependence, unspecified, uncomplicated Status: Acute Assessment and Plan: smoking cessation education has been given patch and gum available p.r.n. (6) Post-operative nausea and vomiting: Code(s): R11.2 - Nausea with vomiting, unspecified; Z98.890 - Other specified postprocedural states Status: Acute Assessment and Plan: most likely secondary to anesthesia or lack of nutrition pain medicine could also be causing her to have some nausea vomiting Robert Pereyra on board continue IV fluids for now Time Spent With Patient Time: 48 minutes Time with patient: Greater than 35 minutes Subjective Date/time seen: 07/20/22 111 Interval history: 07/20/22 111 patient is very nauseated today. She also stated that she is just not able to hold anything down. She does have some pain however was unable to really get the full evaluation from her as she was preoccupied. She denies any chest pain, shortness a breath, nausea, vomiting, diarrhea or constipation at this time. Blood pressure is a little bit higher did start her on blood pressure medication will continue trend. 07/19/22 0830 Patient was lying in bed. She did state that she feels terrible. She also stated that she is feeling better than she was however she is still having some pain. She denies any chest pain, shortness a breath, nausea, vomiting, diarrhea or constipation. Labs and vital signs remained stable. Patient is scheduled for surgical intervention to day with Dr. Sanford. 07/18/22? 17:00 This is a pleasant 72-year-old female smoker with no reported medical problems (she has not seen a doctor for over 20 years) who presented to the emergency department via EMS from home for evaluation of left hip pain after fall. Patient provides the following history. Not long prior to arrival she was caring groceries into the house, lost her balance, and fell onto her left side. She had immediate pain in her left hip and was unable to get herself up. Son was able to get her into a chair but she was unable to bear weight and the ambulance was called. She was found to have a left subcapital fracture and she is being admitted in this setting. She sustained no other injuries in the fall and states there was no head trau
--- NOTE | 2022-07-20 12:00 | P.PNIM_ITS ---
Progress Note: A&P Assessment and Plan (1) Subcapital fracture of left hip: Code(s): S72.012A - Unspecified intracapsular fracture of left femur, initial encounter for closed fracture Status: Acute Assessment and Plan: * POD 1 * hip x-ray shows nondisplaced the capital fracture of the left hip * hip CT shows minimally angulated subcapital fracture left proximal femur * orthopedics has been consulted * DVT prophylaxis eliquis * pain medications on board * postop care per Ortho * PT and OT ordered * Ask nurse to call for weight bearing status (2) Fall from ground level: Code(s): W18.30XA - Fall on same level, unspecified, initial encounter Status: Acute Assessment and Plan: * fall precautions * PT and OT ordered * Awaiting weight bearing status (3) Elevated blood pressure reading: Code(s): R03.0 - Elevated blood-pressure reading, without diagnosis of hypertension Status: Acute Assessment and Plan: * blood pressure 172/89 today * no home medications * elevation could be contributed by pain * p.r.n. hydralazine for now * Added lisinopril 5mg PO daily * continue trend * consider initiation of control postop and with pain control (4) Elevated LFTs: Code(s): R79.89 - Other specified abnormal findings of blood chemistry Status: Acute Assessment and Plan: * AST/ALT today * mild elevation * patient is a known drinker * patient to follow-up outpatient * will continue trend (5) Tobacco dependence: Code(s): F17.200 - Nicotine dependence, unspecified, uncomplicated Status: Acute Assessment and Plan: * smoking cessation education has been given * patch and gum available p.r.n. (6) Post-operative nausea and vomiting: Code(s): R11.2 - Nausea with vomiting, unspecified; Z98.890 - Other specified postprocedural states Status: Acute Assessment and Plan: * most likely secondary to anesthesia or lack of nutrition * pain medicine could also be causing her to have some nausea vomiting * Reglan x1 * Zofran on board * continue IV fluids for now Time Spent With Patient Time: 48 minutes Time with patient: Greater than 35 minutes Subjective Date/time seen: 07/20/22 1115 Interval history: 07/20/221114 patient is very nauseated today. She also stated that she is just not able to hold anything down. She does have some pain however was unable to really get the full evaluation from her as she was preoccupied. She denies any chest pain, shortness a breath, nausea, vomiting, diarrhea or constipation at this time. Blood pressure is a little bit higher did start her on blood pressure medication will continue trend. 07/19/22 0830 Patient was lying in bed. She did state that she feels terrible. She also stated that she is feeling better than she was however she is still having some pain. She denies any chest pain, shortness a breath, nausea, vomiting, diarrhea or constipation. Labs and vital signs remained stable. Patient is scheduled for surgical intervention to day with Dr. Sanford. 07/18/22? 17:00 This is a pleasant 72-year-old female smoker with no reported medical problems (she has not se
--- NOTE | 2022-07-20 13:12 | PC.NURSE ---
Patient too nauseated to take oral scheduled Tylenol currently. She denies pain associated with left hip repair. Gave IV Reglan for nausea
[2022-07-20 13:48] VITALS: BP 171/75; PULSE 107; RESP 18; TEMP 36.6; O2SAT 98
--- NOTE | 2022-07-20 14:05 | PC.NURSE ---
On 07/20/22, the student, [Maria Luz Ramirez], provided care and completed [facility] documentation on this patient. I have reviewed the student's documentation and agree with the findings.
[2022-07-20] MEDS: LACTATED RINGERS 1,000 ML 75 ML IV CONT (14:06)
--- NOTE | 2022-07-20 14:30 | P.PNAN_ITS ---
Anes - Prog Note Post-Op Date/Time: 07/20/22 14:30 Cardiovascular status: normal Respiratory status: normal Airway patency: baseline Mental status: baseline Post-Op hydration status: normal Vital Signs: Last Vital Signs Temp 36.4 C 07/20/22 07:00 Pulse 97 07/20/22 07:00 Resp 18 07/20/22 07:00 BP 182/87 H 07/20/22 11:00 Pulse Ox 91 07/20/22 07:00 O2 Del Method Room Air 07/20/22 11:00 O2 Flow Rate 1 07/19/22 20:00 Pain Score (VAS): 0 I/O: Intake & Output 07/19/22 07/20/22 07/20/22 23:59 07:59 15:59 Intake Total 125 1200 240 Output Total 250 500 Balance -125 700 240 Laboratory Tests 07/20/22 06:57 07/20/22 06:57 07/20/22 07/20/22 06:57 06:57 WBC 11.3 H RBC 4.63 Hgb 14.9 Hct 44.0 MCV 95.0 MCH 32.2 MCHC 33.9 RDW 13.2 Plt Count 208 MPV 10.7 H Immature Gran % (Auto) 0.4 Neut % (Auto) 85.9 H Lymph % (Auto) 6.9 L Weakley % (Auto) 6.6 Eos % (Auto) 0.0 Baso % (Auto) 0.2 Lymph # (Auto) 0.78 L Weakley # (Auto) 0.7 H Eos # (Auto) 0.0 Baso # (Auto) 0.0 Abs Immat Gran (auto) 0.05 H Absolute Neuts (auto) 9.7 H Absolute Nucleated RBC 0.0 Nucleated RBC % 0.0 Sodium 140 Potassium 3.8 Chloride 108 H Carbon Dioxide 26 Anion Gap 6 L BUN 17 Creatinine 0.80 Estim Creat Clear Calc 58 Estimated GFR > 60 Glucose 103 Calcium 8.7 Magnesium 2.2 Total Bilirubin 0.6 AST 31 ALT 31 Alkaline Phosphatase 56 Total Protein 7.0 Albumin 4.2 Post-procedural complaints: none Patient Feedback: Patient satisfied with anesthetic care.
[2022-07-20] MEDS: lisinopriL 10 MG TABLET PO (17:15)
[2022-07-20 21:48] VITALS: BP 144/58; PULSE 82; RESP 18; TEMP 36.5; O2SAT 96
[2022-07-21] MEDS: ACETAMINOPHEN 325 MG TABLET 650 MG PO ×4 (00:42→17:14)
[2022-07-21] MEDS: ceFAZolin 1 GM/NS 50 ML 1 GM/50 ML BAG IVPB ×3 (02:30→17:53)
[2022-07-21 05:37] LABS: Basophils Absolute Auto 0.1 K/mm3 (0.0-0.1); Basophils Percent Auto 0.5 % (0.2-1.2); Eosinophils Percent Auto 0.1 % (0-4.4); Hematocrit 39.7 % (37.0-47.0); Hemoglobin 13.8 g/dL (12.0-15.0); Immature Granulocyte Absolute 0.05 K/mm3 (0.00-0.031); Immature Granulocyte Percent A 0.5 % (0-0.5); Lymphocytes Absolute Auto 2.19 K/mm3 (0.9-3.2); Lymphocytes Percent Auto 21.7 % (18.3-44.2); Mean Corpuscular HGB Conc 34.8 g/dl (32-36); Mean Corpuscular Hemoglobin 32.5 pg (26-34); Mean Corpuscular Volume 93.4 fl (80-100); Mean Platelet Volume 10.3 fl (7.4-10.4); Monocytes Absolute Auto 1.2 K/mm3 (0.1-0.6); Monocytes Percent Auto 11.7 % (2.6-8.5); Neutrophils Absolute Auto 6.6 K/mm3 (1.3-6.7); Neutrophils Percent Auto 65.5 % (45.5-73.1); Platelet Count Result 207 k/mm3 (150-375); Red Blood Count 4.25 M/mm3 (4.2-5.4); Red Cell Distribution Width 13.2 % (11.5-14.5); White Blood Count 10.1 K/mm3 (4.5-10.0)
[2022-07-21] MEDS: LACTATED RINGERS 1,000 ML 75 ML IV CONT (05:55)
[2022-07-21 05:56] LABS: Alanine Aminotransferase 25 U/L (6-35); Albumin Level 3.8 g/dL (3.5-5.1); Alkaline Phosphatase 46 U/L (38-126); Anion Gap 5 mmol/L (8-16); Aspartate Amino Transferase 34 U/L (14-36); Bilirubin,Total 0.8 mg/dL (0.2-1.3); Blood Urea Nitrogen 15 mg/dL (7-17); Calcium 8.3 mg/dL (8.4-10.2); Carbon Dioxide 27 mmol/L (22-30); Chloride 109 mmol/L (98-107); Estimated CRCL calculation 73 ml/min; Estimated Glomerular Filt Rate > 60; Glucose 100 mg/dL (65-110); Magnesium 2.1 mg/dL (1.6-2.3); Potassium 3.3 mmol/L (3.4-5.0); Sodium 141 mmol/L (137-145)
[2022-07-21] MEDS: APIXABAN 2.5 MG TABLET PO ×2 (08:31→21:08)
[2022-07-21] MEDS: lisinopriL 10 MG TABLET PO (08:31)
[2022-07-21 08:36] VITALS: RESP 18; O2SAT 96
[2022-07-21] MEDS: SENNA/DOCUSATE SODIUM TABLET 2 TAB PO ×2 (08:36→17:14)
[2022-07-21 08:52] LABS: Glucose Point of Care 92 mg/dl (65-105)
--- NOTE | 2022-07-21 09:15 | PM.IMPN ---
Progress Note: A&P Assessment and Plan (1) Subcapital fracture of left hip: Code(s): S72.012A - Unspecified intracapsular fracture of left femur, initial encounter for closed fracture Status: Acute Assessment and Plan: POD 2 hip x-ray shows nondisplaced the capital fracture of the left hip hip CT shows minimally angulated subcapital fracture left proximal femur orthopedics has been consulted DVT prophylaxis Eliquis pain medications on board postop care per Ortho PT and OT ordered Ask nurse to call for weight bearing status (2) Fall from ground level: Code(s): W18.30XA - Fall on same level, unspecified, initial encounter Status: Acute Assessment and Plan: fall precautions PT and OT ordered Awaiting weight bearing status (3) Elevated blood pressure reading: Code(s): R03.0 - Elevated blood-pressure reading, without diagnosis of hypertension Status: Acute Assessment and Plan: blood pressure 148/56 today no home medications elevation could be contributed by pain p.r.n. hydralazine for now increased lisinopril to 10mg PO daily continue trend consider initiation of control postop and with pain control (4) Elevated LFTs: Code(s): R79.89 - Other specified abnormal findings of blood chemistry Status: Acute Assessment and Plan: AST/ALT 34/25 today mild elevation patient is a known drinker patient to follow-up outpatient will continue trend Resolved (5) Tobacco dependence: Code(s): F17.200 - Nicotine dependence, unspecified, uncomplicated Status: Acute Assessment and Plan: smoking cessation education has been given patch and gum available p.r.n. (6) Post-operative nausea and vomiting: Code(s): R11.2 - Nausea with vomiting, unspecified; Z98.890 - Other specified postprocedural states Status: Acute Assessment and Plan: most likely secondary to anesthesia or lack of nutrition pain medicine could also be causing her to have some nausea vomiting Pain medications adjusted Reglan x1 Rowanfran on board continue IV fluids for now Time Spent With Patient Time: 36 minutes Subjective Date/time seen: 07/21/22914 Interval history: 07/21/22914 patient was sitting in the chair and she stated that she was doing better. It does appear that they have not given her oxycodone as this is probably what is causing the nausea vomiting a did give her 1 dose of Toradol for pain which she states is 7/10. She denies any chest pain, shortness a breath, nausea, vomiting, diarrhea or constipation. She is prepared to go to acute rehab. Blood pressure appears more stable. 07/20/22 1115 patient is very nauseated today. She also stated that she is just not able to hold anything down. She does have some pain however was unable to really get the full evaluation from her as she was preoccupied. She denies any chest pain, shortness a breath, nausea, vomiting, diarrhea or constipation at this time. Blood pressure is a little bit higher did start her on blood pressure medication will continue trend. 07/19/22 0830 Patient was lying in bed. She did state that she feels terrible. She also stated that she is feeling better than she was however she is still having some pain. She denies any chest pain, shortness a breath, nausea, vomiting, diarrhea or constipation. Labs and vital signs remained stable. Patient is scheduled for surgical intervention to day with Dr. Sanford. 07/18/22? 17:00 This is a pleasant 72-year-old female smoker with no reported medical problems (she has not seen a doctor for over 20 years) who presented to the emergency department via EMS from home for evaluation of left hip pain after fall. Patient provides the following history. Not long
--- NOTE | 2022-07-21 09:15 | P.PNIM_ITS ---
Progress Note: A&P Assessment and Plan (1) Subcapital fracture of left hip: Code(s): S72.012A - Unspecified intracapsular fracture of left femur, initial encounter for closed fracture Status: Acute Assessment and Plan: * POD 2 * hip x-ray shows nondisplaced the capital fracture of the left hip * hip CT shows minimally angulated subcapital fracture left proximal femur * orthopedics has been consulted * DVT prophylaxis Eliquis * pain medications on board * postop care per Ortho * PT and OT ordered * Ask nurse to call for weight bearing status (2) Fall from ground level: Code(s): W18.30XA - Fall on same level, unspecified, initial encounter Status: Acute Assessment and Plan: * fall precautions * PT and OT ordered * Awaiting weight bearing status (3) Elevated blood pressure reading: Code(s): R03.0 - Elevated blood-pressure reading, without diagnosis of hypertension Status: Acute Assessment and Plan: * blood pressure 148/56 today * no home medications * elevation could be contributed by pain * p.r.n. hydralazine for now * increased lisinopril to 10mg PO daily * continue trend * consider initiation of control postop and with pain control (4) Elevated LFTs: Code(s): R79.89 - Other specified abnormal findings of blood chemistry Status: Acute Assessment and Plan: * AST/ALT 34/25 today * mild elevation * patient is a known drinker * patient to follow-up outpatient * will continue trend * Resolved (5) Tobacco dependence: Code(s): F17.200 - Nicotine dependence, unspecified, uncomplicated Status: Acute Assessment and Plan: * smoking cessation education has been given * patch and gum available p.r.n. (6) Post-operative nausea and vomiting: Code(s): R11.2 - Nausea with vomiting, unspecified; Z98.890 - Other specified postprocedural states Status: Acute Assessment and Plan: * most likely secondary to anesthesia or lack of nutrition * pain medicine could also be causing her to have some nausea vomiting * Pain medications adjusted * Reglan x1 * Zofran on board * continue IV fluids for now Time Spent With Patient Time: 36 minutes Subjective Date/time seen: 07/21/22914 Interval history: 07/21/22914 patient was sitting in the chair and she stated that she was doing better. It does appear that they have not given her oxycodone as this is probably what is causing the nausea vomiting a did give her 1 dose of Toradol for pain which she states is 7/10. She denies any chest pain, shortness a breath, nausea, vomiting, diarrhea or constipation. She is prepared to go to acute rehab. Blood pressure appears more stable. 07/20/22 1115 patient is very nauseated today. She also stated that she is just not able to hold anything down. She does have some pain however was unable to really get the full evaluation from her as she was preoccupied. She denies any chest pain, shortness a breath, nausea, vomiting, diarrhea or constipation at this time. Blood pressure is a little bit higher did start her on blood pressure medication will continue trend. 07/19/22 0830 Patient was lying in bed.
[2022-07-21 11:22] VITALS: BP 148/56; RESP 18
[2022-07-21] MEDS: KETOROLAC 15 MG/ML VIAL (*BKC) IV PUSH (11:30)
[2022-07-21 14:00] VITALS: BP 164/62; PULSE 76; RESP 18; TEMP 36.7; O2SAT 97
[2022-07-21 21:19] VITALS: BP 139/78; PULSE 77; RESP 18; TEMP 36.6; O2SAT 95
[2022-07-22] MEDS: ACETAMINOPHEN 325 MG TABLET 650 MG PO ×3 (00:59→11:43)
[2022-07-22] MEDS: ceFAZolin 1 GM/NS 50 ML 1 GM/50 ML BAG IVPB ×2 (01:11→09:38)
[2022-07-22 05:25] LABS: Basophils Absolute Auto 0.1 K/mm3 (0.0-0.1); Basophils Percent Auto 0.9 % (0.2-1.2); Eosinophils Absolute Auto 0.1 K/mm3 (0-0.3); Eosinophils Percent Auto 0.9 % (0-4.4); Hematocrit 37.1 % (37.0-47.0); Hemoglobin 12.6 g/dL (12.0-15.0); Immature Granulocyte Absolute 0.03 K/mm3 (0.00-0.031); Immature Granulocyte Percent A 0.4 % (0-0.5); Lymphocytes Absolute Auto 2.58 K/mm3 (0.9-3.2); Lymphocytes Percent Auto 32.7 % (18.3-44.2); Mean Corpuscular Hemoglobin 31.3 pg (26-34); Mean Corpuscular Volume 92.1 fl (80-100); Mean Platelet Volume 10.4 fl (7.4-10.4); Monocytes Absolute Auto 1.1 K/mm3 (0.1-0.6); Monocytes Percent Auto 13.4 % (2.6-8.5); Neutrophils Absolute Auto 4.1 K/mm3 (1.3-6.7); Neutrophils Percent Auto 51.7 % (45.5-73.1); Platelet Count Result 208 k/mm3 (150-375); Red Blood Count 4.03 M/mm3 (4.2-5.4); White Blood Count 7.9 K/mm3 (4.5-10.0)
[2022-07-22 05:40] LABS: Alanine Aminotransferase 21 U/L (6-35); Albumin Level 3.5 g/dL (3.5-5.1); Alkaline Phosphatase 45 U/L (38-126); Anion Gap 4 mmol/L (8-16); Aspartate Amino Transferase 32 U/L (14-36); Bilirubin,Total 0.6 mg/dL (0.2-1.3); Blood Urea Nitrogen 19 mg/dL (7-17); Calcium 8.5 mg/dL (8.4-10.2); Carbon Dioxide 26 mmol/L (22-30); Chloride 109 mmol/L (98-107); Estimated CRCL calculation 64 ml/min; Estimated Glomerular Filt Rate > 60; Glucose 101 mg/dL (65-110); Magnesium 2.1 mg/dL (1.6-2.3); Potassium 3.3 mmol/L (3.4-5.0); Sodium 139 mmol/L (137-145)
[2022-07-22 06:00] VITALS: BP 175/78; PULSE 68; RESP 18; TEMP 36.3; O2SAT 96
[2022-07-22] MEDS: hydrALAZINE HCL 20 MG/ML VIAL 10 MG IV PUSH ×3 (06:47→20:14)
--- NOTE | 2022-07-22 08:30 | PM.IMPN ---
Progress Note: A&P Assessment and Plan (1) Subcapital fracture of left hip: Code(s): S72.012A - Unspecified intracapsular fracture of left femur, initial encounter for closed fracture Status: Acute Assessment and Plan: POD 3 hip x-ray shows nondisplaced the capital fracture of the left hip hip CT shows minimally angulated subcapital fracture left proximal femur orthopedics has been consulted DVT prophylaxis Eliquis pain medications changed since allergic to codeine postop care per Ortho PT and OT ordered Weight bearing status toe touch weight bearing status (2) Fall from ground level: Code(s): W18.30XA - Fall on same level, unspecified, initial encounter Status: Acute Assessment and Plan: fall precautions PT and OT ordered Continue with current weight bearing status (3) Elevated blood pressure reading: Code(s): R03.0 - Elevated blood-pressure reading, without diagnosis of hypertension Status: Acute Assessment and Plan: blood pressure 175/78 today no home medications elevation contributed by the pain p.r.n. hydralazine for now increased lisinopril to 20mg PO daily, give one dose of 20mg PO lisinopril continue trend consider initiation of control postop and with pain control (4) Elevated LFTs: Code(s): R79.89 - Other specified abnormal findings of blood chemistry Status: Acute Assessment and Plan: AST/ALT 32/21 today mild elevation patient to follow-up outpatient will continue trend Resolved (5) Tobacco dependence: Code(s): F17.200 - Nicotine dependence, unspecified, uncomplicated Status: Acute Assessment and Plan: smoking cessation education has been given patch and gum available p.r.n. (6) Post-operative nausea and vomiting: Code(s): R11.2 - Nausea with vomiting, unspecified; Z98.890 - Other specified postprocedural states Status: Acute Assessment and Plan: most likely secondary to anesthesia or lack of nutrition pain medicine could also be causing her to have some nausea vomiting Pain medications adjusted, since allergy to codeine Reglan x1 Zofran on board Time Spent With Patient Time: 42 minutes Time with patient: Greater than 35 minutes Subjective Date/time seen: 07/22/22829 Interval history: 07/22/22829 Patient was laying in bed. She stated that her complaint is the pain which she rates a 10/10. It has been pretty challenging finding a pain medication that she can tolerate. BP is elevated however, as the pain has been a problem it seems to be driving her blood pressure up. She denies any current chest pain, shortness of breath, nausea, vomiting diarrhea, or constipation. She is doing well per labs. BP medication and have been increased. She is tolerating the tramadol for pain. Will continue to monitor. 07/21/22 0915 patient was sitting in the chair and she stated that she was doing better. It does appear that they have not given her oxycodone as this is probably what is causing the nausea vomiting a did give her 1 dose of Toradol for pain which she states is 7/10. She denies any chest pain, shortness a breath, nausea, vomiting, diarrhea or constipation. She is prepared to go to acute rehab. Blood pressure appears more stable. 07/20/22 1115 patient is very nauseated today. She also stated that she is just not able to hold anything down. She does have some pain however was unable to really get the full evaluation from her as she was preoccupied. She denies any chest pain, shortness a breath, nausea, vomiting, diarrhea or constipation at this time. Blood pressure is a little bit higher did start her on blood pressure medication will continue trend. 07/19/22 0830 Patient was lying in bed. She d
--- NOTE | 2022-07-22 08:30 | P.PNIM_ITS ---
Progress Note: A&P Assessment and Plan (1) Subcapital fracture of left hip: Code(s): S72.012A - Unspecified intracapsular fracture of left femur, initial encounter for closed fracture Status: Acute Assessment and Plan: * POD 3 * hip x-ray shows nondisplaced the capital fracture of the left hip * hip CT shows minimally angulated subcapital fracture left proximal femur * orthopedics has been consulted * DVT prophylaxis Eliquis * pain medications changed since allergic to codeine * postop care per Ortho * PT and OT ordered * Weight bearing status toe touch weight bearing status (2) Fall from ground level: Code(s): W18.30XA - Fall on same level, unspecified, initial encounter Status: Acute Assessment and Plan: * fall precautions * PT and OT ordered * Continue with current weight bearing status (3) Elevated blood pressure reading: Code(s): R03.0 - Elevated blood-pressure reading, without diagnosis of hypertension Status: Acute Assessment and Plan: * blood pressure 175/78 today * no home medications * elevation contributed by the pain * p.r.n. hydralazine for now * increased lisinopril to 20mg PO daily, give one dose of 20mg PO lisinopril * continue trend * consider initiation of control postop and with pain control (4) Elevated LFTs: Code(s): R79.89 - Other specified abnormal findings of blood chemistry Status: Acute Assessment and Plan: * AST/ALT 32/21 today * mild elevation * patient to follow-up outpatient * will continue trend * Resolved (5) Tobacco dependence: Code(s): F17.200 - Nicotine dependence, unspecified, uncomplicated Status: Acute Assessment and Plan: * smoking cessation education has been given * patch and gum available p.r.n. (6) Post-operative nausea and vomiting: Code(s): R11.2 - Nausea with vomiting, unspecified; Z98.890 - Other specified postprocedural states Status: Acute Assessment and Plan: * most likely secondary to anesthesia or lack of nutrition * pain medicine could also be causing her to have some nausea vomiting * Pain medications adjusted, since allergy to codeine * Reglan x1 * Zofran on board Time Spent With Patient Time: 42 minutes Time with patient: Greater than 35 minutes Subjective Date/time seen: 03/26/23 0830 Interval history: 07/22/22 08 Patient was laying in bed. She stated that her complaint is the pain which she rates a 10/10. It has been pretty challenging finding a pain medication that she can tolerate. BP is elevated however, as the pain has been a problem it seems to be driving her blood pressure up. She denies any current chest pain, shortness of breath, nausea, vomiting diarrhea, or constipation. She is doing well per labs. BP medication and have been increased. She is tolerating the tramadol for pain. Will continue to monitor. 07/21/22 0915 patient was sitting in the chair and she stated that she was doing better. It does appear that they have not given her oxycodone as this is probably what is causing the nausea vomiting a did give her 1 dose of Toradol for pain which she states is 7/10. She denies any chest pain, shortness a br
[2022-07-22] MEDS: POTASSIUM CHLORIDE 20 MEQ TABLET 40 MEQ PO (08:32)
[2022-07-22 08:33] VITALS: RESP 18; O2SAT 96
[2022-07-22] MEDS: SENNA/DOCUSATE SODIUM TABLET 2 TAB PO ×2 (08:33→17:20)
[2022-07-22] MEDS: APIXABAN 2.5 MG TABLET PO ×2 (08:33→20:15)
[2022-07-22] MEDS: lisinopriL 10 MG TABLET PO (08:33)
[2022-07-22] MEDS: traMADol HCL (*CRX) 50 MG TABLET PO ×3 (09:38→20:15)
[2022-07-22 12:32] VITALS: BP 198/92; PULSE 81; RESP 16; TEMP 36.4; O2SAT 96
[2022-07-22 13:48] VITALS: BP 208/94; PULSE 95; RESP 16; TEMP 36.3; O2SAT 93
[2022-07-22] MEDS: lisinopriL 20 MG TABLET PO (15:29)
[2022-07-22] MEDS: TIZANIDINE HCL 2 MG TABLET PO (15:29)
[2022-07-22 16:02] VITALS: BP 200/98; PULSE 98; RESP 18; TEMP 36.3; O2SAT 98
[2022-07-22] MEDS: ACETAMINOPHEN 500 MG TABLET 1000 MG PO (17:21)
[2022-07-22 20:00] VITALS: BP 185/93; PULSE 94; PULSE 99; RESP 16; RESP 18; TEMP 36.6; O2SAT 93; O2SAT 95
[2022-07-22] MEDS: ONDANSETRON INJ 4 MG/2 ML VIAL IV PUSH (20:15)
[2022-07-23] VITALS: BP 156/62; PULSE 99; RESP 18; TEMP 36.6; O2SAT 93
[2022-07-23] MEDS: ACETAMINOPHEN 500 MG TABLET 1000 MG PO ×4 (00:50→17:40)
[2022-07-23 04:00] VITALS: BP 139/89; PULSE 95; RESP 16; TEMP 36.4; O2SAT 95
[2022-07-23] MEDS: ONDANSETRON INJ 4 MG/2 ML VIAL IV PUSH (05:49)
--- NOTE | 2022-07-23 07:00 | P.DS_ITS ---
DS: Admitting Diagnosis Discharge Date 07/23/22 0700 Admitting Diagnosis Left hip fracture DS: Discharge Diagnosis Discharge Diagnosis (1) Subcapital fracture of left hip: Code(s): S72.012A - Unspecified intracapsular fracture of left femur, initial encounter for closed fracture Status: Acute Assessment and Plan: * POD 3 * hip x-ray shows nondisplaced the capital fracture of the left hip * hip CT shows minimally angulated subcapital fracture left proximal femur * orthopedics has been consulted * DVT prophylaxis Eliquis * pain medications changed since allergic to codeine * postop care per Ortho * PT and OT ordered * Weight bearing status toe touch weight bearing status (2) Fall from ground level: Code(s): W18.30XA - Fall on same level, unspecified, initial encounter Status: Acute Assessment and Plan: * fall precautions * PT and OT ordered * Continue with current weight bearing status (3) Elevated blood pressure reading: Code(s): R03.0 - Elevated blood-pressure reading, without diagnosis of hypertension Status: Acute Assessment and Plan: * blood pressure 175/78 today * no home medications * elevation could be contributed by pain * p.r.n. hydralazine for now * increased lisinopril to 10mg PO daily * continue trend * consider initiation of control postop and with pain control (4) Elevated LFTs: Code(s): R79.89 - Other specified abnormal findings of blood chemistry Status: Acute Assessment and Plan: * AST/ALT 32/21 today * mild elevation * patient to follow-up outpatient * will continue trend * Resolved (5) Tobacco dependence: Code(s): F17.200 - Nicotine dependence, unspecified, uncomplicated Status: Acute Assessment and Plan: * smoking cessation education has been given * patch and gum available p.r.n. (6) Post-operative nausea and vomiting: Code(s): R11.2 - Nausea with vomiting, unspecified; Z98.890 - Other specified postprocedural states Status: Acute Assessment and Plan: * most likely secondary to anesthesia or lack of nutrition * pain medicine could also be causing her to have some nausea vomiting * Pain medications adjusted, since allergy to codeine * Reglan x1 * Zofran on board DS: Summary Hospital Course Hospital Course: patient is 70-year-old female with a past medical history of tobacco abuse who presented to the ED after a fall at home. Upon arrival to the ED patient had been caring groceries in from the car and had fallen on her left side. Patient had shooting left hip pain. CT of the hip showed subcapital fracture left femur. Hip x-ray showed nondisplaced capital fracture of left femur. Orthopedics was consulted and patient had surgical repair. Patient is postop day 3. Patient did experience some postop nausea vomiting related to most likely the pain medicine or anesthesia. Pain medication regimen has been changed. Patient still does have some significant pain however seems to be okay. Patient Has been working with PT and OT and has been doing well with getting up to a chair. Weight-bearing status is toe-touch weight-bearing status for 8 weeks. AST and ALT were elevated upon arrival have retur
--- NOTE | 2022-07-23 07:00 | PM.DS ---
DS: Admitting Diagnosis Discharge Date 07/23/22 0700 Admitting Diagnosis Left hip fracture DS: Discharge Diagnosis Discharge Diagnosis (1) Subcapital fracture of left hip: Code(s): S72.012A - Unspecified intracapsular fracture of left femur, initial encounter for closed fracture Status: Acute Assessment and Plan: POD 3 hip x-ray shows nondisplaced the capital fracture of the left hip hip CT shows minimally angulated subcapital fracture left proximal femur orthopedics has been consulted DVT prophylaxis Eliquis pain medications changed since allergic to codeine postop care per Ortho PT and OT ordered Weight bearing status toe touch weight bearing status (2) Fall from ground level: Code(s): W18.30XA - Fall on same level, unspecified, initial encounter Status: Acute Assessment and Plan: fall precautions PT and OT ordered Continue with current weight bearing status (3) Elevated blood pressure reading: Code(s): R03.0 - Elevated blood-pressure reading, without diagnosis of hypertension Status: Acute Assessment and Plan: blood pressure 175/78 today no home medications elevation could be contributed by pain p.r.n. hydralazine for now increased lisinopril to 10mg PO daily continue trend consider initiation of control postop and with pain control (4) Elevated LFTs: Code(s): R79.89 - Other specified abnormal findings of blood chemistry Status: Acute Assessment and Plan: AST/ALT 32/21 today mild elevation patient to follow-up outpatient will continue trend Resolved (5) Tobacco dependence: Code(s): F17.200 - Nicotine dependence, unspecified, uncomplicated Status: Acute Assessment and Plan: smoking cessation education has been given patch and gum available p.r.n. (6) Post-operative nausea and vomiting: Code(s): R11.2 - Nausea with vomiting, unspecified; Z98.890 - Other specified postprocedural states Status: Acute Assessment and Plan: most likely secondary to anesthesia or lack of nutrition pain medicine could also be causing her to have some nausea vomiting Pain medications adjusted, since allergy to codeine Reglan x1 Zofran on board DS: Summary Hospital Course Hospital Course: patient is 70-year-old female with a past medical history of tobacco abuse who presented to the ED after a fall at home. Upon arrival to the ED patient had been caring groceries in from the car and had fallen on her left side. Patient had shooting left hip pain. CT of the hip showed subcapital fracture left femur. Hip x-ray showed nondisplaced capital fracture of left femur. Orthopedics was consulted and patient had surgical repair. Patient is postop day 3. Patient did experience some postop nausea vomiting related to most likely the pain medicine or anesthesia. Pain medication regimen has been changed. Patient still does have some significant pain however seems to be okay. Patient Has been working with PT and OT and has been doing well with getting up to a chair. Weight-bearing status is toe-touch weight-bearing status for 8 weeks. AST and ALT were elevated upon arrival have returned back to normal since admission. Patient has been given smoking cessation education. Currently patient is able to eat and has been doing well with a nausea vomiting. Her only complaint is the pain however different pain medications have been given with some relief. Patient denies any chest pain, shortness a breath, nausea, vomiting, diarrhea constipation. Patient is wanting to be discharged in order to be able to get back home. Currently patient is stable for discharge and is going to acute rehab for further strengthening and training. Hypertension has been a problem with this gregg
[2022-07-23] MEDS: KETOROLAC 30 MG/ML VIAL (*BKC) IV PUSH (08:00)
[2022-07-23 08:01] VITALS: RESP 16; O2SAT 96
[2022-07-23] MEDS: PROCHLORPERAZINE EDISYLATE 10 MG/2 ML VIAL IV PUSH (08:01)
[2022-07-23] MEDS: cloNIDine HCL 0.1 MG TABLET PO (08:01)
[2022-07-23 09:18] VITALS: BP 146/77; PULSE 83; RESP 16; TEMP 35.7; O2SAT 96
[2022-07-23] MEDS: lisinopriL 20 MG TABLET PO (09:26)
[2022-07-23] MEDS: APIXABAN 2.5 MG TABLET PO ×2 (09:26→20:25)
[2022-07-23] MEDS: polyethylene glycoL 3350 17 GM POWD.PACK PO (09:28)
[2022-07-23] MEDS: SENNA/DOCUSATE SODIUM TABLET 2 TAB PO (09:28)
--- NOTE | 2022-07-23 11:15 | PCOTNOTE ---
Patient refused treatment this session due to stating she does not feel well. Patient requested, I come back later this afternoon.
[2022-07-23] MEDS: PROMETHAZINE HCL 25 MG/ML AMPUL 12.5 MG IV PUSH (11:46)
--- NOTE | 2022-07-23 11:58 | PM.PNORT ---
Subjective Subjective Date/Time Seen: 07/23/22 11:58Patient is now postop day 5 from left hip pinning. She has been having lot of issues with nausea as well as hypertension over the weekend and therefore was not transferred to rehab facility yet. Patient is not tolerating narcotics, they have tried Ultram as well without improvement. She is still taking scheduled Tylenol. Patient states that when she is lying in bed she is having almost no pain it is just when they get her up moving around where she has the increased pain. Her incision is dry. Minimal swelling in the thigh itself. No swelling in lower extremities. Neurovascularly she is intact. Due to the increased pain and she has when she is up we will check some x-rays today to make sure there has been no changes. I have ordered a scopolamine patch for her as well as a dose of Phenergan to see if this will help with some of her symptoms. Hospitalists are working on getting her blood pressure regulated. Once these issues are improved this should be able get her transferred to [facility] Objective Data Vital Signs Vital Signs: Vital Signs - 24 hr 07/22/22 12:32 07/22/22 13:48 07/22/22 16:02 Temperature 36.4 C 36.3 C L 36.3 C L Pulse Rate 81 95 98 Respiratory Rate 16 16 18 Blood Pressure 198/92 H 208/94 H 200/98 H Pulse Oximetry 96 93 98 Oxygen Delivery 07/22/22 20:00 07/23/22 00:00 07/22/22 20:00 Temperature 36.6 C 36.6 C Pulse Rate 94 99 99 Respiratory Rate 16 18 18 Blood Pressure 185/93 H 156/62 H Pulse Oximetry 95 93 93 Oxygen Delivery Room Air 07/23/22 04:00 07/23/22 09:18 07/23/22 08:01 Temperature 36.4 C 35.7 C L Pulse Rate 95 83 Respiratory Rate 16 16 16 Blood Pressure 139/89 146/77 H Pulse Oximetry 95 96 96 Oxygen Delivery Room Air Intake/Output Intake/Output: Intake & Output 07/20/22 07/21/22 07/22/22 07/23/22 23:59 23:59 23:59 23:59 Intake Total 2330 3310 1000 250 Output Total 1100 2050 650 Balance 1230 1260 350 250 Meds/Results Medications: Active Medications Generic Name Dose Route Start Last Admin Trade Name Freq PRN Reason Stop Dose Admin Acetaminophen 1,000 mg 07/22/22 18:00 07/23/22 11:46 Acetaminophen 500 Mg Tablet PO 1,000 mg Q6HR THANIA Administration Apixaban 2.5 mg 07/20/22 09:00 07/23/22 09:26 Apixaban 2.5 Mg Tablet PO 2.5 mg Q12HR THANIA Administration Hydralazine HCl 10 mg 07/19/22 07:11 07/22/22 14:22 Hydralazine Hcl 20 Mg/Ml Vial IV PUSH 10 mg Q8H PRN Administration Blood Pressure - High Lisinopril 20 mg 07/23/22 09:00 07/23/22 09:26 Lisinopril 20 Mg Tablet PO 20 mg QAM THANIA Administration Morphine Sulfate 2 mg 07/19/22 20:03 Morphine Sulfate (*Crx) 2 Mg/Ml Inj IV PUSH Q1H PRN Pain Rated 7-10 Naloxone HCl 0.1 mg 07/19/22 20:03 Naloxone Hcl 0.4 Mg/Ml Vial IV PUSH Q2M PRN Opiate Reversal Ondansetron HCl 4 mg 07/20/22 09:48 07/23/22 05:49 Ondansetron Inj 4 Mg/2 Ml Vial IV PUSH 4 mg Q4H PRN Administration Nausea And Vomiting Polyethylene Glycol 17 gm 07/20/22 09:00 07/23/22 09:28 Polyethylene Glycol 3350 17 Gm Powd.Pack PO 17 gm QAM THANIA Administration Scopolamine 1.5 mg 07/23/22 09:00 Scopolamine 1.5 Mg Patch TRANSDERM Q72HR THANIA Senna/Docusate Sodium 2 tab 07/20/22 09:00 07/23/22 09:28 Senna/Docusate Sodium Tablet PO 2 tab BID THANIA Administration Tizanidine HCl 2 mg 07/22/22 15:00 07/22/22 15:29 Tizanidine Hcl 2 Mg Tablet PO 2 mg TID PRN Administration Muscle Spasm Tramadol HCl 50 mg 07/22/22 11:50 07/22/22 20:15 Tramadol Hcl (*Crx) 50 Mg Tablet PO 50 mg Q4H PRN Administration Pain Rated 4-6 Radiology Results: ITS Impressions Chest X-Ray 07/18/22 15:08 IMPRESSION: No active cardiopulmonary disease Hip/Pelvis X-Ray 07/18/22 15:08 IMPRESSION: Nondisplaced subcapital fracture of the left hip. Hip CT
[2022-07-23] MEDS: SCOPOLAMINE 1.5 MG PATCH TRANSDERM (12:40)
[2022-07-23 13:55] VITALS: BP 127/60; PULSE 95; RESP 16; TEMP 36.1; O2SAT 95
[2022-07-23 20:00] VITALS: BP 130/59; PULSE 78; RESP 20; TEMP 36.6; O2SAT 95
== END 2022-07-23 20:35 | DRG 482 ==
LOC: ANHED 16:14 → ANH2MED 18:19
PROVIDERS: Orthopaedic Surgery; Physician Assistant; Admitting Provider Internal Medicine; Emergency Provider Emergency Medicine; Visit Provider Nurse Practitioner
PROC: 0QH734Z Insertion of Internal Fixation Device into Left Upper Femur, Percutaneous Approach (ICD-10-PCS; principal; 2022-07-19 16:30)
DX: S72.012A Unspecified intracapsular fracture of left femur, initial encounter for closed fracture (principal); W01.0XXA Fall on same level from slipping, tripping and stumbling without subsequent striking against object, initial encounter; F17.210 Nicotine dependence, cigarettes, uncomplicated; R03.0 Elevated blood-pressure reading, without diagnosis of hypertension; R79.89 Other specified abnormal findings of blood chemistry; E66.9 Obesity, unspecified; Z68.30 Body mass index [BMI] 30.0-30.9, adult; Z98.890 Other specified postprocedural states; R11.2 Nausea with vomiting, unspecified; T40.695A Adverse effect of other narcotics, initial encounter; T88.59XA Other complications of anesthesia, initial encounter
CPT/HCPCS: 36415; 71045; 73502; 73700; 80053; 81001; 82306; 82948; 83735; 84443; 85025; 85027; 85610; 85730; 93005; 96374; 96375; 97110; 97161; 97165; 97530; 97535; 99199; 99285; A9270; C1713; J0131; J0360; J0690; J0780; J1100; J1741; J1885; J2250; J2270; J2405; J2550; J2704; J2765; J3370; J7030; J7120

== ENCOUNTER 2022-11-06 12:16 | Outpatient (CLI) | payer MEDICAID, SELFPAY ==
--- NOTE | ~2022-11-06 | DEXA_ITS ---
Bone Density Report Name: ARLETH PERALTA Age: 72 Sex: Female Ethnicity: White Date of : 1950 Indication: postmenopausal; screening for osteoporosis; height loss; prior fracture; hysterectomy; Referring Provider: NICOLAS RAMIRES Study: Bone densitometry was performed. Exam Date: November 06, 2022 Accession number: [id number] Bone Density: Region BMD T-score Z-score Classification AP Spine(L1-L4) 0.847 -1.8 0.4 Osteopenia Femoral Neck (Right) 0.558 -2.6 -0.7 Osteoporosis Total Hip (Right) 0.684 -2.1 -0.5 Osteopenia World Health Organization criteria for BMD impression classify patients as: Normal (T-score at or above -1.0), Osteopenia (T-score between -1.0 and -2.5), or Osteoporosis (T-score at or below -2.5). 10-year Fracture Risk: FRAX not reported because: Some T-score for Spine Total or Hip Total or Femoral Neck at or below -2.5 Prior hip or vertebral fracture Clinical Information Provided by Patient: Have had a previous hip or vertebral fracture Has had a low trauma fracture Smokes Has used the following medications: Calcium Has the following medical conditions: Hysterectomy Patient maximum height was 64 No regular weight bearing exercise Drinks caffeinated beverages Onset of menses at age 13 Number of children 4 Impression: The patient has established osteoporosis, based on the Right Femoral Neck T-score and the existence of a prior fracture. The patient has risk factors, including: smoking, previous fracture. Discussion: HIGH RISK OF FRACTURE. BONE DENSITY IS UNDESIRABLY LOW AT ONE OR MORE SKELETAL SITES, CONSISTENT WITH POSTMENOPAUSAL OSTEOPOROSIS. This patient's lowest T-score, in a patient who has previously fractured, meets the World Health Organization's (WHO) criteria for severe osteoporosis. In untreated patients, the risk of osteoporotic fracture increases approximately two-fold for each 1.0 SD decrease in T-score. Low bone density is not the only risk factor for fracture; also consider factors such as patient's age, frailty or poor health, risk of falling, risk of injury, previous osteoporotic fracture, family history of osteoporosis, cigarette smoking, low body weight, etc. Not everyone with low bone mineral density has osteoporosis; osteomalacia and other metabolic bone disorders should also be considered. Patients who have osteoporosis should be evaluated for specific diseases and conditions (secondary causes) that may cause or contribute to bone loss. The [place] [employer] (AACE) and National Osteoporosis Foundation (NOF) recommend pharmacologic intervention for all postmenopausal women with a previous hip or vertebral fracture and a T-score in this range. The patient should follow a healthful lifestyle (good nutrition with adequate calcium and vitamin D, and appropriate weight-bearing exercise).
== END 2022-11-06 12:17 | disposition home or self-care (01) ==
PROVIDERS: PCP Family Medicine; Visit Provider Orthopaedic Surgery
DX: Z78.0 Asymptomatic menopausal state (principal); M85.89 Other specified disorders of bone density and structure, multiple sites; M81.0 Age-related osteoporosis without current pathological fracture
CPT/HCPCS: 77080

== ENCOUNTER 2023-01-17 13:37 | Outpatient (CLI) | payer MEDICAID, SELFPAY ==
[2023-01-17 14:52] LABS: Erythrocyte Sedimentation Rate 23 mm/hr (0-20)
[2023-01-17 14:58] LABS: CRP < 0.5 mg/dL (<1.0)
== END 2023-01-17 13:38 | disposition home or self-care (01) ==
PROVIDERS: PCP Family Medicine; Visit Provider Orthopaedic Surgery
DX: M25.552 Pain in left hip (principal)
CPT/HCPCS: 36415; 85652; 86140

== ENCOUNTER 2023-04-01 00:59 | Day surgery (SDC) | payer MEDICAID, SELFPAY ==
[2023-03-25 14:54] VITALS: BMI 26.6
--- NOTE | 2023-03-25 14:56 | PC.NURSE ---
Report to the Outpatient Waiting Room, entrance under the green pavilion located off [facility], at time _1000_ on date _[id number]_. Planned Procedure Time: _1200_. Time changes happen often and if your time is changed the preop area will call you the afternoon before. - You and your visitor will be asked to self-screen and do not enter if you have any COVID symptoms. - A mask is optional within the hospital at this time. Patients may have clear liquids (water, carbonated beverages, clear teas, apple juice) until 3 hours prior to surgery with a maximum of 20 ounces. - No food from midnight until time of surgery Take the following medications with a SIP of water the morning of surgery: ___Clonidine DO NOT STOP ANY OF YOUR OTHER PRESCRIPTION MEDICATIONS PRIOR TO SURGERY ?EXCEPT THE FOLLOWING Medications to discontinue per physician None Date to take last dose Please no make-up, nail romanian, hairspray, perfume, deodorant, or body powder the day of surgery. No jewelry (including any body piercings) or valuables the day of surgery, leave them at home. Please take a shower or bath the night before, or the morning of, surgery with an antibacterial soap. Wear comfortable, loose fitting clothing. - Jewelry must be removed prior to entering the operating room. Rings and piercings that are not removed may be cut off. - The hospital will not accept responsibility for valuables. - Please leave all valuables, including medications, at home the day of surgery. If you are going home after surgery, a licensed driver/guide must drive you home. - NO public transportation without another adult if you receive anesthesia. - We recommend that an adult stay with you for 24 hours following discharge. - We also recommend that you do not drive, make important decision, drink alcoholic beverages, or take any drugs that were not prescribed by your health care provider for at least 24 hours after your discharge time. Follow any additional instructions given to you from your surgeon. If you or anyone in your household have experienced Covid symptoms in the past week, please notify your surgeon or the nurse liaison at the phone number below for possible testing. Telephone instructions given to _Amy__and asked if any additional questions and then verbalized understanding. Patient advised to call surgeon office or pre surgery nurse liaison [phone] if any additional questions.
--- NOTE | 2023-03-29 07:34 | PM.IMHP ---
H&P: HPI History of Present Illness Date/Time: 03/29/23 07:34 Chief Complaint: Painful left hip Narrative: 73-year-old female presents today for the screws hip. Original surgery was done July 19 of this year for right Garden 1 neck fracture. Fracture itself did heal. She did have shortening of the femoral neck during the healing process and cannulated screws now prominent in the soft tissue causing pain in the lateral. This point her fracture is well healed patient like to have the screws removed. Review of Systems Review of Systems: All systems reviewed & are unremarkable except as noted in HPI and below PMFSH Past Medical History Medical History Abnormality of gait History of alcohol consumption Hypertension Subcapital fracture of left hip Tobacco dependence Surgical History Surgical History No history of previous surgery S/P ORIF (open reduction internal fixation) fracture Family History Family History Other Heart disease Hypertension Social History Social History (Updated 01/22/23 @ 11:01 by Keeley Robert) Social History: Surrogate medical decision maker: Miguel Hines, son. Code status: Full code. Smoking packs per day: 0.5 Smoking cigarettes per day: 10.0 Years smoked: 43 Smoking pack-years: 21.50 Smoking status: Current every day smoker Tobacco type: cigarettes Alcohol intake: never Substance use: never Substance use type: does not use Lack of Transportation: No Lack of Food: Never True Current Housing: I Have Housing Concerned About Future Housing: No Difficulty Paying Gas/Electric Bills: No Difficulty Paying for Meds: No Currently Unemployed: YES Education: High School Diploma/GED Difficulty w/ Childcare or Family Care: No Living arrangements: with family Additional living arrangements comments: Lives in [place] with son. Occupation/Education: retired Additional occupation/education comments: Retired. Gender identity (if verbalized by the patient): Female Sexual Orientation (if Verbalized by the Patient): Straight or Heterosexual Spiritual care concerns: No Meds Home Medications and Allergies Home Medications Medication Instructions Recorded Confirmed Type clonidine HCl 0.1 mg tablet 0.1 mg PO BID #60 tabs 01/22/23 03/25/23 Rx lisinopril 20 mg tablet 20 mg PO QAM #20 tabs 01/22/23 03/25/23 Rx acetaminophen 325 mg tablet 650 mg PO Q4H PRN Pain 03/25/23 03/25/23 History Allergies Allergy/AdvReac Type Severity Reaction Status Date / Time tramadol AdvReac Intermediate Nausea Verified 03/25/23 14:42 codeine AdvReac Nausea and Verified 03/25/23 14:42 Vomiting Exam Narrative: 73-year-old female alert pleasant. Her incision on a lateral hip is well healed. There is no redness or warmth. She has severe tenderness over the cannulated screw heads which are palpable and prominent. She has no pain with range of motion of the hip. 2+ dorsalis pedis pulse in her foot. Resp: Auscultation: clear to auscultation bilaterally Cardio: Rate: regular rate Rhythm: regular rhythm Assessment and Plan Assessment and plan (1) Subcapital fracture of left hip: Qualifiers: Encounter type: sequela Fracture type: closed Qualified Code(s): S72.012S - Unspecified intracapsular fracture of left femur, sequela Code(s): S72.012A - Unspecified intracapsular fracture of left femur, initial encounter for closed fracture Status: Acute Plan 73-year-old female who has painful on her her left hip. Is now about 8 and half months out from original injury. Fracture of the femoral neck looks to be well healed. She has had shortening in the process of the healing of the fracture. The cannulated screws are prominent and irritating the soft tissue pa
[2023-04-01] VITALS (9 sets, daily range): BP systolic 147–191; BP diastolic 84–110; PULSE 77–105; RESP 12–18; TEMP 36.4–36.5; O2SAT 96–100
--- NOTE | ~2023-04-01 | XR_ITS ---
EXAMINATION: XR surgery orthopedic DATE: 04/01/2023 12:46 INDICATION: Removal of fixation screws at the left hip TECHNIQUE: 4 fluoroscopic images of the left hip were obtained during procedure performed by Dr. Adarsh garcia. Radiologist was not present for the imaging or procedure. The amount of fluoroscopy time used du ring this procedure was 0.4 minutes. COMPARISON: 07/23/2022 FINDINGS: Automotive Drivability Technician image demonstrates healing of a subcapital the left hip joint space appears relatively preserve d. No new fractures identified. Fracture of the left hip which has healed with significant subsidence . There is corresponding backing out of the 3 fixation lag screws the tips of which remain within the confines of the femoral head on the frontal projection. Residual lucent screw tracks are seen follow ing removal of the fixation screws. IMPRESSION: 1. Fluoroscopy utilized during removal of fixation screws at the left femoral head neck. 2. The prior subcapital fracture of the proximal left femur has healed with some subsidence with shor tening of the femoral neck. Reviewed, dictated and finalized at location A. [employer] TOMOGRAPHY TECHNOLOGIST IMPRESSION: 1. Fluoroscopy utilized during removal of fixation screws at the left femoral h ead neck. 2. The prior subcapital fracture of the proximal left femur has healed with delvin e subsidence with shortening of the femoral neck.
[2023-04-01] MEDS: LACTATED RINGERS 1,000 ML 30 ML IV CONT (10:30)
[2023-04-01] MEDS: KETOROLAC 15 MG/ML VIAL (*BKC) IV PUSH (10:54)
--- NOTE | 2023-04-01 11:47 | WPDHPUPDATE1 ---
History and Physical Update Update Date/Time: 04/01/23 11:47 History and Physical has been reviewed, including an updated exam of the patient. There are NO changes in the patient's condition. Risks, benefits, and alternatives have been discussed and questions answered. Patient agrees to proceed with procedure.
--- NOTE | 2023-04-01 11:48 | WPDHPUPDATE1 ---
History and Physical Update Update Date/Time: 04/01/23 11:48 History and Physical has been reviewed, including an updated exam of the patient. There are NO changes in the patient's condition. Risks, benefits, and alternatives have been discussed and questions answered. Patient agrees to proceed with procedure.
--- NOTE | 2023-04-01 11:55 | WPDANESEPPF ---
Anes - Initial Pre Proc Eval Procedure: Operation Date: 04/01/23 12:00 Proposed Procedures p Removal of Three Cannulated Screws Left Hip Fracture - Richie Sanford MD Date/Time: 04/01/23 11:55 Surgeon: Richie Sanford MD Pre Op Diagnosis: painful hardware left hip fracture Patient Data Age: 73 Gender: F Height: 1.63 m Weight: 72.1 kg Last Vital Signs Temp 97.7 F 04/01/23 10:50 Pulse 105 H 04/01/23 10:50 Resp 16 04/01/23 10:50 BP 147/89 H 04/01/23 10:50 Pulse Ox 96 04/01/23 10:50 O2 Del Method Room Air 04/01/23 10:50 Allergies Allergy/AdvReac Type Severity Reaction Status Date / Time tramadol AdvReac Intermediate Nausea Verified 04/01/23 10:49 codeine AdvReac Nausea and Verified 04/01/23 10:49 Vomiting Home Medications Medication Instructions Recorded Confirmed Type clonidine HCl 0.1 mg tablet 0.1 mg PO BID #60 tabs 01/22/23 04/01/23 Rx lisinopril 20 mg tablet 20 mg PO QAM #20 tabs 01/22/23 04/01/23 Rx acetaminophen 325 mg tablet 650 mg PO Q4H PRN Pain 03/25/23 04/01/23 History Patient hx anesthesia problems: none Family hx anesthesia problems: none Results Review: All pre-operative results and documents have been reviewed as part of the pre-operative evaluation. [facility] Past Medical History Medical History Abnormality of gait History of alcohol consumption Hypertension Subcapital fracture of left hip Tobacco dependence Surgical History Surgical History No history of previous surgery S/P ORIF (open reduction internal fixation) fracture Family History Family History Other Heart disease Hypertension Social History Social History (Updated 01/22/23 @ 11:01 by Keeley Robert) Social History: Surrogate medical decision maker: Miguel Hines, son. Code status: Full code. Smoking packs per day: 0.5 Smoking cigarettes per day: 10.0 Years smoked: 43 Smoking pack-years: 21.50 Smoking status: Current every day smoker Tobacco type: cigarettes Alcohol intake: never Substance use: never Substance use type: does not use Lack of Transportation: No Lack of Food: Never True Current Housing: I Have Housing Concerned About Future Housing: No Difficulty Paying Gas/Electric Bills: No Difficulty Paying for Meds: No Currently Unemployed: YES Education: High School Diploma/GED Difficulty w/ Childcare or Family Care: No Living arrangements: with family Additional living arrangements comments: Lives in [place] with son. Occupation/Education: retired Additional occupation/education comments: Retired. Gender identity (if verbalized by the patient): Female Sexual Orientation (if Verbalized by the Patient): Straight or Heterosexual Spiritual care concerns: No Anes - Eval Final PreProcedure Day of Procedure 04/01/23 11:55 Patient weight: normal Heart: regular rate and rhythm Lungs: clear to auscultation Airway: Mallampati scale class II Neurological: alert and oriented Last oral intake: >/= 8 hours ASA classification: III Emergent: no Anesthetic plan: proceed Anesthesia type and monitoring: general LMA and standard monitoring Results Review: All pre-operative results and documents have been reviewed as part of the pre-operative evaluation. Informed Consent: The patient's anesthetic plan and its attendant risks and benefits were discussed with the patient/family/POA. Questions were solicited and answers provided to the satisfaction of the patient/family/POA.
[2023-04-01] MEDS: LIDOCAINE HCL 1% PF INJ 5 ML VIAL 10 ML INFILTRATE (12:26)
[2023-04-01] MEDS: ceFAZolin 2 GM/D5W 50 ML 2 GM/50 ML BAG IVPB (12:35)
[2023-04-01] MEDS: ceFAZolin SODIUM 1 GM VIAL IRRIGATION (12:39)
--- NOTE | 2023-04-01 12:42 | W.PM.PROC2 ---
Procedure Note - Detailed Date of Procedure 04/01/23 Pre-op Diagnosis painful hardware left hip fracture Post-op Diagnosis Same Procedure Performed Removal 3 cannulated screws left hip Surgeon Richie Sanford MD Principal System Software Engineer [place] Anesthesia General Description of Procedure Patient was brought to the operating room and general anesthesia was administered. We held antibiotics in case we encountered purulence. The patient was positioned on the fracture table the right hip flexed abducted out of the way. The left hip was prepped draped usual fashion. The previous 1 in longitudinal incision was utilized. We made a small incision in the fascial layer and then removed the 3 cannulated screws by 1st inserting a guidewire and a the inferior screw and the screwdriver over the guidewire and this was backed out with difficulty in the process process repeated for the proximal 2 screws. With all 3 screws out we notice that there was no purulent material. We looked at the hip under fluoroscopic image internal and externally rotating the hip in the fracture seemed to move as a unit. Final fluoroscopic x-rays were obtained. The wound was closed with 2-0 subcutaneous Vicryl and glue EBL was less than 5 cc. We did inject 10 cc of 1% lidocaine into the soft tissues around the hip for analgesia. She was transferred postop recovery room in good condition. Disposition PACU
[2023-04-01] MEDS: ONDANSETRON INJ 4 MG/2 ML VIAL IV PUSH (13:13)
[2023-04-01] MEDS: diphenhydrAMINE HCl INJ 50 MG/ML VIAL 6.25 MG IV PUSH (13:24)
--- NOTE | 2023-04-01 13:44 | SUR.PHASEI ---
Notified Dr. Mcfadden's regarding patient's elevated SBP. Patient checked into preop with BP of 186/106. No new orders at this time.
[2023-04-01] MEDS: ACETAMINOPHEN 500 MG TABLET 1000 MG PO (14:38)
== END 2023-04-01 14:55 | disposition home or self-care (01) ==
PROVIDERS: PCP Family Medicine; Visit Provider Orthopaedic Surgery
PROC: (CPT 20680; principal; 2023-04-01 12:00)
DX: T84.84XA Pain due to internal orthopedic prosthetic devices, implants and grafts, initial encounter (principal); I10 Essential (primary) hypertension; F17.210 Nicotine dependence, cigarettes, uncomplicated; Z82.49 Family history of ischemic heart disease and other diseases of the circulatory system
CPT/HCPCS: 20680; 99199; A9270; J0690; J1200; J1885; J2250; J2405; J2704; J3010; J7120

== ENCOUNTER 2023-04-02 14:37 | Inpatient (IN) | payer MEDICARE, MEDICAID, SELFPAY ==
--- NOTE | ~2023-04-02 | XR_ITS ---
XR hip LT 1V w AP pelvis 04/04/2023 13:47 Indication: Hip pain. Procedure: 2 views left hip Comparison: CT dated 04/02/2023 Findings: There is a displaced left femoral neck fracture. Screw holes are present in the left femora l neck. Osteopenia. No significant soft tissue abnormality. There is osteoarthritis of the right hip. Pelvic rings are intact. Impression: 1: Displaced left femoral neck fracture. Reviewed, dictated and finalized at location L. D MARKETING COORDINATOR Impression: 1: Displaced left femoral neck fracture.
--- NOTE | ~2023-04-02 | US_ITS ---
EXAMINATION: US hip asp inj w image LT DATE: 04/03/2023 12:46 INDICATION: Left femoral neck fracture with nonunion and pain TECHNIQUE: The procedure including the risks and benefits was discussed with the patient. Risks discu ssed included bleeding and infection. The patient understood the risks and agreed to proceed. The sk in overlying the tip was prepped and draped in usual sterile fashion. Anesthetic was administered wi th 1% lidocaine subcutaneously. An 20 gauge core spinal needle was advanced under continuous ultraso und observation to the margins of the bone at the anterior head and neck of the left hip on either si de of the fracture. Only a fraction of a milliliter of orange-colored fluid was able to be aspirated from the region of the fracture which was sent to lab for studies as ordered by the referring physici an. The needle was removed and the entry site was cleaned and dressed. Post procedure ultrasound de monstrated no hemorrhage. FINDINGS: Ultrasound images demonstrate no appreciable joint effusion at the left hip. A trace amount of fluid was able to be aspirated from the region of the fracture. IMPRESSION: 1. No left hip joint effusion with only a trace amount of orangeish fluid able to be aspirated from t he region of the fracture. Reviewed, dictated and finalized at location A. NING MATRON IMPRESSION: 1. No left hip joint effusion with only a trace amount of orangeish fluid able to be aspirated from the region of the fracture.
--- NOTE | ~2023-04-02 | CT_ITS ---
EXAMINATION: CT hip LT wo con DATE: 04/02/2023 16:04 INDICATION: Left hip pain post fixation screw removal TECHNIQUE: High resolution computed tomography (CT) of the left hip was performed without intravenous contrast. Additional sagittal and coronal reconstructions were performed. Automated exposure control and iterative reconstruction technique were employed. The dose-length product was 263.98 mGy-cm. COMPARISON: None FINDINGS: There is residual lucency extending across the majority of a fracture plane at the left femoral neck. There has been osteolysis along both sides of the fracture plane with significant shortening of the femoral neck. There is a very small region along the superolateral margin of the fracture where there is no discernible lucency between the fracture fragments equivocal for minimal bridging. There is ne terri imperceptible varus angulation and proximal proximal migration of the distal femur relative to t he femoral head as evidenced by a slight misregistration of the residual lucent screw tracks lucent s crew tracks in the femoral head versus intratrochanteric femur. Expected small hematoma and a few foc i of gas in the subcutaneous tissues along the tract of the screw explantation. No left hip joint eff usion. There is chondrocalcinosis and mild osteoarthritis at the left hip. No other fractures identif ied. No pathologically enlarged left pelvic or inguinal lymphadenopathy. IMPRESSION: 1. 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 Slight misregistration of the explanted screw tra cks along both sides of the fracture indicating a negligible relative change in position of the bone either side of the fracture. Reviewed, dictated and finalized at location A. IER IMPRESSION: 1. 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 Sligh t misregistration of the explanted screw tracks along both sides of the fractur e indicating a negligible relative change in position of the bone either side o f the fracture.
--- NOTE | ~2023-04-02 | XR_ITS ---
EXAM: XR hip RT min 2V DATE: 04/02/2023 18:05 HISTORY: left hip fracture, comparison image . COMPARISON: None available. FINDINGS: Decreased mineralization. No fracture or dislocation. No lytic or blastic lesion. Lumbar d egenerative disc disease. Degenerative changes in the right SI joint and right hip. No erosion or per iosteal change. Soft tissues within normal limits. IMPRESSION: Osteopenia. No acute osseous finding in the right hip. Reviewed, dictated and finalized at location K. L FILER
[2023-04-02 14:35] VITALS: BP 162/87; PULSE 73; RESP 18; TEMP 36.8; O2SAT 100
--- NOTE | 2023-04-02 15:43 | ED.GENADULT ---
HPI - General Adult General Chief complaint: Extremity Injury, Lower Stated complaint: L hip pain, post op Time Seen by Provider: 04/02/23 15:01 History of Present Illness HPI narrative: 73-year-old female presenting to the emergency department for evaluation of left hip pain. Patient had follow-up with orthopedics yesterday and had old hardware removed from her left hip. Patient states after being discharged she had increased pain throughout the evening. Patient denies any falls or injury. Patient reports that she was not provided any medication for pain control when she was discharged yesterday. Patient states she has history is to tramadol and codeine but that she believes she has taken hydrocodone without issue previously. Related Data Home Medications Medication Instructions Recorded Confirmed acetaminophen 325 mg tablet 650 mg PO Q4H PRN Pain 03/25/23 04/01/23 tramadol 50 mg tablet mg 04/02/23 04/02/23 Allergies Allergy/AdvReac Type Severity Reaction Status Date / Time tramadol AdvReac Intermediate Nausea Verified 04/02/23 15:51 codeine AdvReac Nausea and Verified 04/02/23 15:51 Vomiting Review of Systems Review of Systems: All systems reviewed & are unremarkable except as noted in HPI and below PMFSH Past Medical History Medical History (Updated 04/02/23 @ 17:40 by Ju Avila PA-C) History of alcohol consumption Hypertension Subcapital fracture of left hip (06/2022) Tobacco dependence Surgical History Surgical History (Updated 04/02/23 @ 17:32 by Ju Avila PA-C) History of open reduction and internal fixation (ORIF) procedure Repair left subcapital hip fracture. Family History Family History Other Heart disease Hypertension Social History Social History (Updated 04/02/23 @ 17:35 by Ju Avila PA-C) Social History: Surrogate medical decision maker: Miguel Hines, son. Code status: Full code. Smoking packs per day: 0.5 Smoking cigarettes per day: 10.0 Years smoked: 43 Smoking pack-years: 21.50 Smoking status: Current every day smoker Tobacco type: cigarettes Alcohol intake: never Substance use: never Substance use type: does not use Lack of Transportation: No Lack of Food: Never True Current Housing: I Have Housing Concerned About Future Housing: No Difficulty Paying Gas/Electric Bills: No Difficulty Paying for Meds: No Currently Unemployed: YES Education: High School Diploma/GED Difficulty w/ Childcare or Family Care: No Living arrangements: with family Additional living arrangements comments: Lives in [place] with son. Occupation/Education: retired Additional occupation/education comments: Retired. Spiritual care concerns: No Exam Narrative: APPEARANCE: Well appearing, no pain, no distress, well-nourished. HEAD: normocephalic, atraumatic. EYES: PERRLA/EOMI, conjunctivae clear. NOSE: Normal no drainage EARS:TMS clear with good light reflex. THROAT: Pharynx clear, no exudate. NECK: Supple. No adenopathy, no masses. RESPIRATORY: Airway patent, respirations nonlabored. Clear to auscultation bilaterally, no rales, rhonchi, wheezing. CARDIOVASCULAR: Regular rate and rhythm without murmurs rubs or gallops. ABDOMINAL: Soft, nontender, nondistended, normal bowel sounds MUSCULOSKELETAL: left hip pain NEURO: Alert. Cranial nerves II through XII intact. Good gait. Good coordination SKIN: Left lateral hip tenderness to palpation Course Course Emergency Course: 73-year-old female presented to ED for evaluation of worsening left hip pain. Patient reports that her current pain is worse than prior to having the screws removed. 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 I discussed the case with Orthopedics and patient will be admitted to the hospitalist and Orthopedics will see the patient by consult in the morning. Patient
[2023-04-02] MEDS: CYCLOBENZAPRINE HCL 10 MG TABLET PO (15:47)
[2023-04-02] MEDS: HYDROcodone/acetaminophen (*CRX) 5-325 MG TABLET 1 TAB PO (15:48)
[2023-04-02] MEDS: ONDANSETRON INJ 4 MG/2 ML VIAL IV PUSH (15:48)
--- NOTE | 2023-04-02 17:31 | PM.IMHP ---
H&P: HPI History of Present Illness Date/Time: 04/02/23 17:30 Chief Complaint: Left hip pain. Narrative: This is a pleasant 73-year-old female smoker with hypertension who presented to the emergency department via EMS from home for evaluation of left hip pain. She sustained a subcapital left femoral neck fracture in June 2022 which was fixed with screw fixation per Dr. Sanford. Yesterday she had 3 cannulated screws removed from that left hip due to painful hardware. She reports ever increasing pain at the operative site since discharge yesterday afternoon. She barely up last night and she is having difficulties bearing weight on the leg due to the pain. She has not had any falls. 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 She is being admitted in this setting for pain control and consultation with Dr. Sanford. She denies paresthesias, skin color, and temperature changes distal to the operative site. Review of Systems Review of Systems: Twelve systems were reviewed. No fever, chills, sweats. No recent cold or flu symptoms. No chest pain or pleuritic pain. Except as documented, all other systems were reviewed and are negative. [facility] Past Medical History Medical History (Updated 04/02/23 @ 22:48 by Ju Avila PA-C) Hypertension Subcapital fracture of left hip (06/2022) Tobacco dependence Surgical History Surgical History (Updated 04/02/23 @ 17:32 by Ju Avila PA-C) History of open reduction and internal fixation (ORIF) procedure Repair left subcapital hip fracture. Family History Family History Other Heart disease Hypertension Social History Social History (Updated 04/02/23 @ 17:35 by Ju Avila PA-C) Social History: Surrogate medical decision maker: Miguel Hines, son. Code status: Full code. Smoking packs per day: 0.5 Smoking cigarettes per day: 10.0 Years smoked: 43 Smoking pack-years: 21.50 Smoking status: Current every day smoker Tobacco type: cigarettes Alcohol intake: never Substance use: never Substance use type: does not use Lack of Transportation: No Lack of Food: Never True Current Housing: I Have Housing Concerned About Future Housing: No Difficulty Paying Gas/Electric Bills: No Difficulty Paying for Meds: No Currently Unemployed: YES Education: High School Diploma/GED Difficulty w/ Childcare or Family Care: No Living arrangements: with family Additional living arrangements comments: Lives in [place] with son. Occupation/Education: retired Additional occupation/education comments: Retired. Spiritual care concerns: No Meds Home Medications and Allergies Home Medications Medication Instructions Recorded Confirmed Type clonidine HCl 0.1 mg tablet 0.1 mg PO BID #60 tabs 01/22/23 04/02/23 Rx acetaminophen 325 mg tablet 650 mg PO Q4H PRN Pain 03/25/23 04/02/23 History cephalexin 500 mg capsule 500 mg PO Q6H #8 caps 04/01/23 04/02/23 Rx Allergies Allergy/AdvReac Type Severity Reaction Status Date / Time tramadol AdvReac Intermediate Nausea Verified 04/02/23 15:51 codeine AdvReac Nausea and Verified 04/02/23 15:51 Vomiting Vital Signs Vital Signs - 24 hr 04/02/23 14:35 Temperature 98.3 F Pulse Rate 73 Respiratory Rate 18 Blood Pressure 162/87 H Pulse Oximetry 100 Oxygen Delivery Room Air Exam Narrative: General:?Well-developed, nontoxic-appearing female sitting up in bed. Weight: 83 kg. BMI: 31.4. HEENT:??Normocephalic, atraumatic. Wearing corrective lenses. PERRL, EOMI. Sclera anicteric.?Tacky mucous membranes. Neck:??Supple. Respiratory:?Lungs are clear to auscultation bilaterally. Cardiovascular:?Regular rate and rhythm with normal S1-S2. Gastrointestinal:??Abdomen is soft, nontender, and n
[2023-04-02 17:42] VITALS: BP 200/91; PULSE 74; RESP 18; O2SAT 99
[2023-04-02 17:52] LABS: Basophils Percent Auto 0.5 % (0.2-1.2); Eosinophils Percent Auto 0.5 % (0-4.4); Hemoglobin 13.6 g/dL (12.0-15.0); Immature Granulocyte Absolute 0.02 K/mm3 (0.00-0.031); Immature Granulocyte Percent A 0.2 % (0-0.5); Lymphocytes Absolute Auto 2.67 K/mm3 (0.9-3.2); Lymphocytes Percent Auto 32.2 % (18.3-44.2); Mean Corpuscular HGB Conc 33.2 g/dl (32-36); Mean Corpuscular Hemoglobin 32.4 pg (26-34); Mean Corpuscular Volume 97.6 fl (80-100); Mean Platelet Volume 9.4 fl (7.4-10.4); Monocytes Absolute Auto 0.8 K/mm3 (0.1-0.6); Monocytes Percent Auto 9.2 % (2.6-8.5); Neutrophils Absolute Auto 4.8 K/mm3 (1.3-6.7); Neutrophils Percent Auto 57.4 % (45.5-73.1); Platelet Count Result 240 k/mm3 (150-375); Red Cell Distribution Width 13.4 % (11.5-14.5); White Blood Count 8.3 K/mm3 (4.5-10.0)
[2023-04-02 18:03] LABS: INR 1.1; Partial Thromboplastin Time 26.6 SECONDS (22.3-36.8); Prothrombin Time 15.1 Seconds (11.1-14.7)
[2023-04-02 18:05] LABS: Alanine Aminotransferase 30 U/L (6-35); Albumin Level 4.5 g/dL (3.5-5.1); Alkaline Phosphatase 51 U/L (38-126); Anion Gap 8 mmol/L (8-16); Aspartate Amino Transferase 39 U/L (14-36); Bilirubin,Total 0.7 mg/dL (0.2-1.3); Blood Urea Nitrogen 13 mg/dL (7-17); CRP 0.6 mg/dL (<1.0); Carbon Dioxide 29 mmol/L (22-30); Chloride 104 mmol/L (98-107); Estimated CRCL calculation 51 ml/min; Estimated Glomerular Filt Rate > 60; Glucose 100 mg/dL (65-110); Potassium 3.9 mmol/L (3.4-5.0); Sodium 141 mmol/L (137-145)
[2023-04-02 18:13] VITALS: BP 160/81
[2023-04-02 18:45] LABS: Erythrocyte Sedimentation Rate 30 mm/hr (0-20)
[2023-04-02 20:24] VITALS: O2SAT 96
[2023-04-02 21:11] VITALS: BP 182/92; PULSE 74; RESP 16; TEMP 36.6; O2SAT 96
[2023-04-03] MEDS: cloNIDine HCL 0.1 MG TABLET PO ×3 (00:07→17:31)
[2023-04-03] MEDS: CEPHALEXIN 500 MG CAPSULE PO ×2 (00:07→05:25)
[2023-04-03 04:13] VITALS: BP 166/89; PULSE 79; RESP 16; TEMP 36.6; O2SAT 95; BMI 27.2
[2023-04-03 06:55] LABS: Hematocrit 39.9 % (37.0-47.0); Hemoglobin 13.1 g/dL (12.0-15.0); Mean Corpuscular HGB Conc 32.8 g/dl (32-36); Mean Corpuscular Hemoglobin 32.3 pg (26-34); Mean Corpuscular Volume 98.5 fl (80-100); Mean Platelet Volume 9.8 fl (7.4-10.4); Platelet Count Result 237 k/mm3 (150-375); Red Blood Count 4.05 M/mm3 (4.2-5.4); Red Cell Distribution Width 13.5 % (11.5-14.5); White Blood Count 6.6 K/mm3 (4.5-10.0)
--- NOTE | 2023-04-03 07:06 | PM.CNOR ---
History of Present Illness HPI Consult date: 04/03/23 Chief complaint: Left Hip Non Union Narrative: 73-year-old female who was admitted yesterday due to severe pain in the left hip. Patient's original surgery was in June of this year. She had a [place] 1 left femoral neck fracture. This was treated with screw fixation. Patient's recovery she was noncompliant and was ambulating and weight-bearing more than what she was advised to do. She also continues to smoke through her recovery and continues to smoke still. She was getting around with a walker and having minimal to no symptoms in the left hip these last several months. Her fracture had collapsed down through its recovery and the screws had become prominent. Patient was complaining that the screws were bothering the soft tissue on her lateral hip. Physical exam findings correlated this. She had the 3 cannulated screws were removed 2 days ago here in the OR. She went home and started to have pain in the left hip that continued to increase until the point where it was severe and she came to the emergency room due to the severe pain. Her x-rays prior to the true movable shoulder shortening but it did appear on the x-rays that she had union. 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 There is no evidence of any callus formation on the CT scan at the fracture. Patient was admitted for treatment of this. Prior surgery patient's CRP was normal sed rate which is slightly elevated at 30. When the screws were removed there was no evidence of infection during surgery and therefore the screws were not cultured. Dr. Sanford reviewed the CT scan and due to the fact that it is a nonunion with no callus formation now 8 half months out there is a concern that there could be a low-grade infection that caused this. Other possibility is that she has an atrophic nonunion because of her smoking and the fact she was not compliant postop from her original surgery. The treatment option for this is a cemented bipolar hemiarthroplasty. But at this point there is a concern about infection which needs to be ruled out before proceeding with surgery. We will order aspiration of the hip with cell count and diff. We will also order aerobe and anaerobic cultures. I have asked the lab to make sure that they hold culture shows for a minimum of 3 weeks as this could be a very low-grade bacteria that may take quite a while before it grows on a culture medium. If the fluid aspiration shows to be extremely normal with no white cells and no red blood cells Dr. Sanford will make a determination on the treatment at that point. This was all discussed with the patient this morning on 04/03. We will put patient on Eliquis once the aspiration is done for DVT prophylaxis. We will have Physical therapy see her today, she will be touch weight-bearing on the left leg. On physical exam patient is alert. She has moderate to severe pain with trying to elevate the leg off the bed. The incision from her surgery 2 days ago looks very benign there is no redness or warmth about it. She has normal sensation to left lower extremity. 2+ dorsalis pedis pulse. Patient was strongly advised this morning that she needs to quit smoking completely at this point and states she is willing to do that. [facility] Past Medical History Medical History (Updated 04/02/23 @ 22:48 by Ju Avila PA-C) Hypertension Subcapital fracture of left hip (06/2022) Tobacco dependence Surgical History Surgical History (Updated 04/02/23 @ 17:32 by Ju Avila PA-C) History of open reduction and internal fixation (ORIF) procedure Repair left subcapital hip fracture. Family History Family History Other Heart disease Hypertension Social History Social History (Updated 04/02/23 @ 17:35 by Ju Avila PA-C) Social
[2023-04-03 07:12] LABS: Anion Gap 8 mmol/L (8-16); Blood Urea Nitrogen 12 mg/dL (7-17); Calcium 9.6 mg/dL (8.4-10.2); Carbon Dioxide 25 mmol/L (22-30); Chloride 106 mmol/L (98-107); Estimated CRCL calculation 60 ml/min; Estimated Glomerular Filt Rate > 60; Glucose 97 mg/dL (65-110); Magnesium 2.1 mg/dL (1.6-2.3); Potassium 3.9 mmol/L (3.4-5.0); Sodium 139 mmol/L (137-145)
[2023-04-03] MEDS: ACETAMINOPHEN 500 MG TABLET 1000 MG PO ×3 (08:39→17:31)
[2023-04-03] MEDS: oxyCODONE HCL (*CRX) 2.5 MG TAB IR PO ×3 (08:39→17:31)
[2023-04-03 10:20] VITALS: BMI 27.2
[2023-04-03 14:10] VITALS: BP 144/89; PULSE 83; RESP 16; TEMP 36.6; O2SAT 95
--- NOTE | 2023-04-03 15:53 | PM.IMPN ---
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 Dr. Sanford has been consulted, aspiration of the joint for fluid testing performed today. Analgesics are available as needed. will resume DVT prophylaxis when appropriate, SCDs for now (2) Fracture of left femur with nonunion: Code(s): S72.92XK - Unspecified fracture of left femur, subsequent encounter for closed fracture with nonunion Status: Acute Assessment and Plan: ortho following s/p pin removal on 04/01 with increasing pain. PT/OT eval for d/c planning would benefit from JULIO CÉSAR placement at d/c care coordination following (3) Hypertension: Qualifiers: Hypertension type: primary hypertension Qualified Code(s): I10 - Essential (primary) hypertension Code(s): I10 - Essential (primary) hypertension Status: Chronic Assessment and Plan: Continue antihypertensives and monitor closely (4) Tobacco dependence: Code(s): F17.200 - Nicotine dependence, unspecified, uncomplicated Status: Chronic Assessment and Plan: smoking cessation discussed Subjective Date/time seen: 04/03/23 15:53 Interval history: Patient sitting up in bed this morning. She reports pain with movement but not at rest. Discussed case with her and care coordination, would likely benefit from JULIO CÉSAR at d/c as she lives with her son but does not assistance with ambulation that he is not always available for. She has joint aspiration today to rule out bacterial infection, ortho following and will follow recommendations. PT/OT eval for d/c planning. Review of Systems Review of Systems: Twelve systems were reviewed. No fever, chills, sweats. No recent cold or flu symptoms. No chest pain or pleuritic pain. Except as documented, all other systems were reviewed and are negative. Exam Narrative: General:?Well-developed, nontoxic-appearing female sitting up in bed. HEENT:??Normocephalic, atraumatic. Wearing corrective lenses. PERRL, EOMI. Sclera anicteric.?Tacky mucous membranes. Neck:??Supple. Respiratory:?Lungs are clear to auscultation bilaterally. Cardiovascular:?RRR with normal S1-S2. Gastrointestinal:??Abdomen is soft, nontender, and nondistended with positive bowel sounds. Skin:??Warm and dry.? No rash or lesions on limited exam. Extremities:??No cyanosis, clubbing, or edema. Radial and pedal pulses intact. Musculoskeletal:?Left hip is mildly swollen. Surgical dressing is clean, dry, and intact. There is surrounding ecchymosis. Neurological:??A&O x3. Cranial nerves 2-12 are grossly intact. No gross focal deficits to casual conversation. Psychiatric:??Pleasant and cooperative with normal mood and affect.? Judgment and insight intact. Objective Data Vital Signs Vital Signs: Vital Signs - 24 hr 04/02/23 17:42 04/02/23 18:13 04/02/23 21:11 Temperature 97.8 F Pulse Rate 74 74 Respiratory Rate 18 16 Blood Pressure 200/91 H 160/81 H 182/92 H Pulse Oximetry 99 96 Oxygen Delivery 04/02/23 20:24 04/03/23 04:13 04/03/23 13:31 Temperature 98 F Pulse Rate 79 Respiratory Rate 16 Blood Pressure 166/89 H Pulse Oximetry 96 95 Oxygen Delivery Room Air Room Air 04/03/23 14:10 Temperature 97.8 F Pulse Rate 83 Respiratory Rate 16 Blood Pressure 144/89 H Pulse Oximetry 95 Oxygen Delivery Meds/Results Medications: Active Medications Generic Name Dose Route Start Last Admin Trade Name Freq PRN Reason Stop Dose Admin Acetaminophen 650 mg 04/02/23 22:48 Acetaminophen 325 Mg Tablet PO Q6H PRN Mild Pain (1-3) or Fever Acetaminophen 1,000 mg 04/03/23 07:00 04/03/23 13:07 Acetaminophen 500 Mg Tablet PO 1,000 mg Q6HR THANIA Administration Clonidine HCl 0.1 mg 04/02/23 23:10
[2023-04-03] MEDS: ONDANSETRON INJ 4 MG/2 ML VIAL IV PUSH (17:31)
[2023-04-03] MEDS: APIXABAN 2.5 MG TABLET PO (20:04)
[2023-04-03 21:50] VITALS: BP 171/83; PULSE 77; RESP 14; TEMP 36.1; O2SAT 91
[2023-04-04] MEDS: ACETAMINOPHEN 500 MG TABLET 1000 MG PO ×2 (04:34→12:42)
[2023-04-04 06:00] VITALS: BP 158/72; PULSE 84; RESP 15; TEMP 36.3; O2SAT 92
[2023-04-04 07:15] LABS: Basophils Percent Auto 0.6 % (0.2-1.2); Eosinophils Absolute Auto 0.1 K/mm3 (0-0.3); Eosinophils Percent Auto 0.8 % (0-4.4); Hematocrit 38.7 % (37.0-47.0); Hemoglobin 12.9 g/dL (12.0-15.0); Immature Granulocyte Absolute 0.02 K/mm3 (0.00-0.031); Immature Granulocyte Percent A 0.3 % (0-0.5); Lymphocytes Absolute Auto 2.01 K/mm3 (0.9-3.2); Lymphocytes Percent Auto 30.2 % (18.3-44.2); Mean Corpuscular HGB Conc 33.3 g/dl (32-36); Mean Corpuscular Hemoglobin 32.7 pg (26-34); Monocytes Absolute Auto 0.8 K/mm3 (0.1-0.6); Monocytes Percent Auto 12.2 % (2.6-8.5); Neutrophils Absolute Auto 3.7 K/mm3 (1.3-6.7); Neutrophils Percent Auto 55.9 % (45.5-73.1); Platelet Count Result 227 k/mm3 (150-375); Red Blood Count 3.95 M/mm3 (4.2-5.4); Red Cell Distribution Width 13.4 % (11.5-14.5); White Blood Count 6.7 K/mm3 (4.5-10.0)
[2023-04-04 07:24] LABS: Anion Gap 4 mmol/L (8-16); Blood Urea Nitrogen 17 mg/dL (7-17); Calcium 9.8 mg/dL (8.4-10.2); Carbon Dioxide 28 mmol/L (22-30); Chloride 106 mmol/L (98-107); Estimated CRCL calculation 48 ml/min; Estimated Glomerular Filt Rate > 60; Glucose 103 mg/dL (65-110); Potassium 4.3 mmol/L (3.4-5.0); Sodium 138 mmol/L (137-145)
--- NOTE | 2023-04-04 08:03 | PM.PNORT ---
Progress Note: A&P Assessment and Plan (1) Closed fracture of neck of femur with nonunion: Code(s): S72.009K - Fracture of unspecified part of neck of unspecified femur, subsequent encounter for closed fracture with nonunion Status: Acute Assessment and Plan: Patient physical therapy worked with her yesterday. She is able to touch toe weight-bearing independently. She needs constant reminding. She is alert and oriented to the date but she needs reminding. She does not want to go to rehab facility she wants to go home she wants to go home today. She promises to quit smoking completely. I have discussed with her that it will take 3 weeks for the final cultures to be completed to rule out slow growing organism such as peptostreptococcus and P acnes. The aspiration yesterday only yielded 0.5 cc of orange fluid so this is encouraging that there is probably no infection but we need to rule it out before proceeding with arthroplasty. We will obtain x-rays today as a baseline. I have discussed with her that if she is noncompliant with the touch weight-bearing her fracture could displace. She would like to wait until after [place] to schedule the hip replacement surgery which would be either a bipolar or total hip arthroplasty depending on the cartilage and labrum. Subjective Subjective Date/Time Seen: 04/04/23 08:03 Objective Data Vital Signs Vital Signs: Vital Signs - 24 hr 04/03/23 13:31 04/03/23 14:10 04/03/23 21:50 Temperature 36.6 C 36.1 C L Pulse Rate 83 77 Respiratory Rate 16 14 Blood Pressure 144/89 H 171/83 H Pulse Oximetry 95 91 Oxygen Delivery Room Air 04/03/23 20:00 04/04/23 06:00 Temperature 36.3 C L Pulse Rate 84 Respiratory Rate 15 Blood Pressure 158/72 H Pulse Oximetry 92 Oxygen Delivery Room Air Intake/Output Intake/Output: Intake & Output 04/01/23 04/02/23 04/03/23 04/04/23 23:59 23:59 23:59 23:59 Intake Total 790 750 Balance 790 750 Meds/Results Medications: Active Medications Generic Name Dose Route Start Last Admin Trade Name Freq PRN Reason Stop Dose Admin Acetaminophen 650 mg 04/02/23 22:48 Acetaminophen 325 Mg Tablet PO Q6H PRN Mild Pain (1-3) or Fever Acetaminophen 1,000 mg 04/03/23 07:00 04/04/23 04:34 Acetaminophen 500 Mg Tablet PO 1,000 mg Q6HR THANIA Administration Apixaban 2.5 mg 04/03/23 21:00 04/03/23 20:04 Apixaban 2.5 Mg Tablet PO 05/08/23 20:59 2.5 mg Q12HR THANIA Administration Clonidine HCl 0.1 mg 04/02/23 23:10 04/03/23 17:31 Clonidine Hcl 0.1 Mg Tablet PO 0.1 mg BID THANIA Administration Morphine Sulfate 2 mg 04/02/23 22:48 Morphine Sulfate (*Crx) 2 Mg/Ml Inj IV PUSH Q4H PRN Pain Rated 7-10 Ondansetron HCl 4 mg 04/03/23 16:41 04/03/23 17:31 Ondansetron Inj 4 Mg/2 Ml Vial IV PUSH 4 mg Q6H PRN Administration Nausea And Vomiting Oxycodone HCl 2.5 mg 04/03/23 09:00 04/04/23 04:35 Oxycodone Hcl (*Crx) 2.5 Mg Tab Ir PO Not Given Q4HR THANIA Oxycodone HCl 2.5 mg 04/03/23 06:55 Oxycodone Hcl (*Crx) 2.5 Mg Tab Ir PO Q4H PRN Pain Rated 7-10 Radiology Results: ITS Impressions Hip CT 04/02/23 16:04 IMPRESSION: 1. 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 Slight misregistration of the explanted screw tracks along both sides of the fracture indicating a negligible relative change in position of the bone either side of the fracture. Hip X-Ray 04/02/23 18:27 IMPRESSION: Osteopenia. No acute osseous finding in the right hip. Joint Aspiration/Injection 04/03/23 12:51 IMPRESSION: 1. No left hip joint effusion with only a trace amount of orangeish fluid able to be aspirated from the region of the fracture. Labs Labs: Laboratory Results - last 24 hr 04/04/23 06:18 WBC 6.7 RBC 3.95 L Hgb
[2023-04-04] MEDS: APIXABAN 2.5 MG TABLET PO ×2 (09:07→20:30)
[2023-04-04] MEDS: oxyCODONE HCL (*CRX) 2.5 MG TAB IR PO ×3 (09:07→20:30)
[2023-04-04] MEDS: ONDANSETRON INJ 4 MG/2 ML VIAL IV PUSH (09:08)
[2023-04-04] MEDS: cloNIDine HCL 0.1 MG TABLET PO ×2 (09:09→16:58)
--- NOTE | 2023-04-04 09:25 | PM.PNORT ---
Progress Note: A&P Assessment and Plan (1) Closed fracture of neck of femur with nonunion: Code(s): S72.009K - Fracture of unspecified part of neck of unspecified femur, subsequent encounter for closed fracture with nonunion Status: Acute Plan Patient will be discharged home instructed to be toe-touch weight-bearing only with a walker multimedia programmer she is aware that if she puts too much weight on it she may displace the nonunion of the femoral neck causing further complications for her. She will be given pain medication to use as tolerated and as needed. She will be scheduled for a bipolar versus total hip arthroplasty after per her request she is to be discharged home in good condition otherwise. She has been instructed not to smoke and she has promised not to do this. The patient voiced understanding agrees above plan see discharge summary and orders. Subjective Subjective Date/Time Seen: 04/04/23 09:25 Interval history: The patient will be discharged home today. Unfortunately it appears that a CT scan shows incomplete healing of the femoral neck fracture. She has been told to be touch weight-bearing at home on the left lower extremity and use a walker multimedia programmer. She is aware that she is going to be rescheduled for surgical intervention after the holiday with either a bipolar or total hip arthroplasty depending on how things look. The patient has promised not to smoke and follow-up with weight-bearing restrictions. Otherwise she is doing well. Review of Systems Review of Systems: Ten point review of systems otherwise negative Exam Narrative: vital signs stable afebrile neurovascular intact wound clean and dry calves benign tolerating p.o. well up ambulating with a walker touchdown weight-bearing needs to be reminded consistently not to put any weight on the leg. Alert oriented x3. Normal mood and affect. Objective Data Vital Signs Vital Signs: Vital Signs - 24 hr 04/03/23 13:31 04/03/23 14:10 04/03/23 21:50 Temperature 36.6 C 36.1 C L Pulse Rate 83 77 Respiratory Rate 16 14 Blood Pressure 144/89 H 171/83 H Pulse Oximetry 95 91 Oxygen Delivery Room Air 04/03/23 20:00 04/04/23 06:00 Temperature 36.3 C L Pulse Rate 84 Respiratory Rate 15 Blood Pressure 158/72 H Pulse Oximetry 92 Oxygen Delivery Room Air Intake/Output Intake/Output: Intake & Output 04/01/23 04/02/23 04/03/23 04/04/23 23:59 23:59 23:59 23:59 Intake Total 790 750 Balance 790 750 Meds/Results Medications: Active Medications Generic Name Dose Route Start Last Admin Trade Name Freq PRN Reason Stop Dose Admin Acetaminophen 650 mg 04/02/23 22:48 Acetaminophen 325 Mg Tablet PO Q6H PRN Mild Pain (1-3) or Fever Acetaminophen 1,000 mg 04/03/23 07:00 04/04/23 04:34 Acetaminophen 500 Mg Tablet PO 1,000 mg Q6HR THANIA Administration Apixaban 2.5 mg 04/03/23 21:00 04/04/23 09:07 Apixaban 2.5 Mg Tablet PO 05/08/23 20:59 2.5 mg Q12HR THANIA Administration Clonidine HCl 0.1 mg 04/02/23 23:10 04/04/23 09:09 Clonidine Hcl 0.1 Mg Tablet PO 0.1 mg BID THANIA Administration Morphine Sulfate 2 mg 04/02/23 22:48 Morphine Sulfate (*Crx) 2 Mg/Ml Inj IV PUSH Q4H PRN Pain Rated 7-10 Ondansetron HCl 4 mg 04/03/23 16:41 04/04/23 09:08 Ondansetron Inj 4 Mg/2 Ml Vial IV PUSH 4 mg Q6H PRN Administration Nausea And Vomiting Oxycodone HCl 2.5 mg 04/03/23 09:00 04/04/23 09:07 Oxycodone Hcl (*Crx) 2.5 Mg Tab Ir PO 2.5 mg Q4HR THANIA Administration Oxycodone HCl 2.5 mg 04/03/23 06:55 Oxycodone Hcl (*Crx) 2.5 Mg Tab Ir PO Q4H PRN Pain Rated 7-10 Radiology Results: ITS Impressions Hip CT 04/02/23 16:04 IMPRESSION: 1. 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 Slight misregistration of the e
--- NOTE | 2023-04-04 09:56 | PM.DS ---
DS: Admitting Diagnosis Discharge Date April 04, 2023 Admitting Diagnosis retained hardware left hip status post left femoral neck pinning discharge diagnosis same status post removal hardware left hip and nonunion of left femoral neck fracture. DS: Summary Hospital Course Hospital Course: The patient was taken to the operating room on April 01, 2023 hardware was removed from the left hip the patient did note increasing pain with weight-bearing and ambulation. A CT scan was done this revealed what appears to be a nonunion of the femoral neck fracture despite the fact that the x-rays showed what appeared to be good healing. The patient was placed on touchdown weight-bearing and long discussion was had with the patient with regards to the findings. Dr. Sanford has recommended bipolar hip prosthesis versus total hip arthroplasty depending on what the articular cartilage looks like in the acetabulum. The patient would like to wait to have surgery until after she would like to go home. She has been instructed to be strict nonweightbearing with toe-touch only left lower extremity to avoid displacement of the nonunion of the femoral neck fracture. Patient is also instructed not to smoke she will be discharged home good condition general diet be maintained on Eliquis 2.5 mg twice a day until April 20 the plan is for surgery on April 24. The patient will be given hydrocodone and Tylenol for pain as needed. The patient will call the office immediately for any further problems difficulties or questions. She may shower change dressing daily. Time Spent with Patient Time attestation: Total time spent providing and/or coordinating discharge services: DS: Data Data Completed and Pending Labs on day of discharge: Labs from last 24 hours 04/04/23 06:18 WBC 6.7 RBC 3.95 L Hgb 12.9 Hct 38.7 MCV 98.0 MCH 32.7 MCHC 33.3 RDW 13.4 Plt Count 227 MPV 10.0 Immature Gran % (Auto) 0.3 Neut % (Auto) 55.9 Lymph % (Auto) 30.2 [place] % (Auto) 12.2 H Eos % (Auto) 0.8 Baso % (Auto) 0.6 Lymph # (Auto) 2.01 [place] # (Auto) 0.8 H Eos # (Auto) 0.1 Baso # (Auto) 0.0 Abs Immat Gran (auto) 0.02 Absolute Neuts (auto) 3.7 Absolute Nucleated RBC 0.0 Nucleated RBC % 0.0 Sodium 138 Potassium 4.3 Chloride 106 Carbon Dioxide 28 Anion Gap 4 L BUN 17 Creatinine 0.90 Estim Creat Clear Calc 48 Estimated GFR > 60 Glucose 103 Calcium 9.8 Discharge Plan Discharge Consulting providers: Richie Sanford Discharging Clinician: Luis Brody Anticipated Discharge Date/Time: 04/04/23 09:31 Patient Disposition: Home, Self-Care Activity: august shower Diet: as tolerated Wound Care Instructions: keep dressing dry and change dressing daily Discharge Instructions: The patient is discharged to home general diet she is to be strict toe-touch weight-bearing on the left lower extremity with a walker at all times no more weight-bearing than this. The patient is instructed not to smoke. She will return to see Dr. Sanford for follow-up at a prescheduled appointment and will proceed with bipolar hip versus total hip arthroplasty soon after [place] is over. The patient will be discharged with Eliquis for DVT prophylaxis Until the 20 of April then discontinue. The patient is instructed to avoid all nonsteroidal anti-inflammatory medication, and also she will take Tylenol and low-dose oxycodone as needed for pain. Patient will change dressing daily watch for evidence of infection or drainage call the office immediately for any problems difficulties or questions. the patient will resume other home medications and orders per the admitting medical doctor. avoid all nonsteroidal anti-inflammatory medication no more than touchdown weight-bearing left lower extremity with a walker at all times. The patient is instructed not to smoke Patient Instructions: Antibiotic Form, Apixaban (By mouth), How
--- NOTE | 2023-04-04 10:43 | PM.IMPN ---
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 Dr. Sanford has been consulted, aspiration of the joint for fluid testing performed. Small amount of fluid drained, low likelihood of infection but will follow up. Analgesics are available as needed. resume Elijorge luis (2) Fracture of left femur with nonunion: Code(s): S72.92XK - Unspecified fracture of left femur, subsequent encounter for closed fracture with nonunion Status: Acute Assessment and Plan: ortho following s/p pin removal on 04/01 with increasing pain. PT/OT eval for d/c planning would benefit from [facility] placement at d/c care coordination following (3) Hypertension: Qualifiers: Hypertension type: primary hypertension Qualified Code(s): I10 - Essential (primary) hypertension Code(s): I10 - Essential (primary) hypertension Status: Chronic Assessment and Plan: Continue antihypertensives and monitor closely (4) Tobacco dependence: Code(s): F17.200 - Nicotine dependence, unspecified, uncomplicated Status: Chronic Assessment and Plan: smoking cessation discussed Subjective Date/time seen: 04/04/23 10:43 Interval history: Patient to be discharged today, per ortho. Orders for discharge and instructions were completed by ortho and she is refusing [facility] at this time. Discussed at length with her the benefits of, encouraged her to quite smoking and to follow up with PT as recommended. She is medically stable to be discharged today. Care coordination followed up and patient is now open to [facility] but bed will not be open until tomorrow. Plan to d/c tomorrow. Review of Systems Review of Systems: All systems reviewed & are unremarkable except as noted in HPI and below Exam Narrative: General:?Well-developed, nontoxic-appearing female sitting up in bed. HEENT:??Normocephalic, atraumatic. Wearing corrective lenses. PERRL, EOMI. Neck:??Supple. Respiratory:?Lungs are clear to auscultation bilaterally. Cardiovascular:?RRR with normal S1-S2. Gastrointestinal:??Abdomen is soft, nontender, and nondistended with positive bowel sounds. Skin:??Warm and dry.? No rash or lesions on limited exam. Extremities:??No cyanosis, clubbing, or edema. Radial and pedal pulses intact. Musculoskeletal:?Left hip is mildly swollen. Surgical dressing is clean, dry, and intact. There is surrounding ecchymosis. Neurological:??A&O x3. Cranial nerves 2-12 are grossly intact. No gross focal deficits to casual conversation. Psychiatric:??Pleasant and cooperative with normal mood and affect.? Judgment and insight intact. Objective Data Vital Signs Vital Signs: Vital Signs - 24 hr 04/03/23 13:31 04/03/23 14:10 04/03/23 21:50 Temperature 97.8 F 97.0 F L Pulse Rate 83 77 Respiratory Rate 16 14 Blood Pressure 144/89 H 171/83 H Pulse Oximetry 95 91 Oxygen Delivery Room Air 04/03/23 20:00 04/04/23 06:00 Temperature 97.3 F L Pulse Rate 84 Respiratory Rate 15 Blood Pressure 158/72 H Pulse Oximetry 92 Oxygen Delivery Room Air Intake/Output Intake/Output: Intake & Output 04/01/23 04/02/23 04/03/23 04/04/23 23:59 23:59 23:59 23:59 Intake Total 790 1230 Balance 790 1230 Meds/Results Medications: Active Medications Generic Name Dose Route Start Last Admin Trade Name Freq PRN Reason Stop Dose Admin Acetaminophen 650 mg 04/02/23 22:48 Acetaminophen 325 Mg Tablet PO Q6H PRN Mild Pain (1-3) or Fever Acetaminophen 1,000 mg 04/03/23 07:00 04/04/23 04:34 Acetaminophen 500 Mg Tablet PO 1,000 mg Q6HR THANIA Administration Apixaban 2.5 mg 04/03/23 21:00 04/04/23 09:07 Apixaban 2.5 Mg Tablet PO 05/08/23 20:59 2.5 mg Q12HR THANIA Administration Clonidine HCl 0.1 mg
[2023-04-04 14:00] VITALS: BP 150/74; PULSE 73; RESP 16; TEMP 36.5; O2SAT 93
[2023-04-04 21:28] VITALS: BP 145/80; PULSE 70; RESP 13; TEMP 36.9; O2SAT 93
[2023-04-05] MEDS: ACETAMINOPHEN 500 MG TABLET 1000 MG PO ×2 (00:21→12:59)
[2023-04-05 06:00] VITALS: BP 183/80; PULSE 81; RESP 14; TEMP 36.9; O2SAT 93
[2023-04-05] MEDS: oxyCODONE HCL (*CRX) 2.5 MG TAB IR PO ×3 (06:04→12:59)
[2023-04-05 07:09] LABS: Alanine Aminotransferase 27 U/L (6-35); Albumin Level 4.1 g/dL (3.5-5.1); Alkaline Phosphatase 47 U/L (38-126); Anion Gap 8 mmol/L (8-16); Aspartate Amino Transferase 33 U/L (14-36); Bilirubin,Total 0.5 mg/dL (0.2-1.3); Blood Urea Nitrogen 18 mg/dL (7-17); Calcium 9.9 mg/dL (8.4-10.2); Carbon Dioxide 26 mmol/L (22-30); Chloride 106 mmol/L (98-107); Estimated CRCL calculation 53 ml/min; Estimated Glomerular Filt Rate > 60; Glucose 105 mg/dL (65-110); Hematocrit 38.7 % (37.0-47.0); Hemoglobin 12.8 g/dL (12.0-15.0); Mean Corpuscular HGB Conc 33.1 g/dl (32-36); Mean Corpuscular Hemoglobin 32.7 pg (26-34); Platelet Count Result 237 k/mm3 (150-375); Potassium 4.2 mmol/L (3.4-5.0); Red Blood Count 3.91 M/mm3 (4.2-5.4); Red Cell Distribution Width 13.5 % (11.5-14.5); Sodium 140 mmol/L (137-145); White Blood Count 6.1 K/mm3 (4.5-10.0)
--- NOTE | 2023-04-05 07:48 | PM.PNORT ---
Progress Note: A&P Assessment and Plan (1) Closed fracture of neck of femur with nonunion: Code(s): S72.009K - Fracture of unspecified part of neck of unspecified femur, subsequent encounter for closed fracture with nonunion Status: Acute Assessment and Plan: patient is day 4. After removal of prominent cannulated screws from left proximal femur. She has had increased pain since screw removal and CT scan shows padmini nonunion. Hip was aspirated 2 days ago and preliminary results show negative Gram stain and no growth thus far. Only 0.5 cc of orange fluid was aspirated from the joint which supports absence of infection. We will hold the cultures for 21 days to rule out slow growing indolent infection which would require eradication before arthroplasty surgery. We have scheduled arthroplasty either bipolar or total hip arthroplasty, depending on the status of the articular cartilage, for Saturday04/24/2023. X-rays from yesterday were reviewed. There is no change in the alignment compared to fluoroscopic view from Saturday after the screws were removed. Prominent shortening and impaction is again identified. Fortunately the patient has agreed to acute rehab placement which I think is far superior for her compared to having her go home. I spoke to her yesterday about the difficulty she is going to have with her narrow bathroom having to go in sideways with a walker to use the commode and that was going to be problematic and the likelihood that she would continue to abstain from smoking is probably low if she returns home. A int acute rehab we will have her be touch weight-bearing only and limit her to bed to chair transfers. Eliquis will be utilized for DVT prophylaxis since she will have a decrease in her activity over the next 3 weeks. Last dose of Eliquis should be AM of April 21. Subjective Subjective Date/Time Seen: 04/05/23 07:48 Objective Data Vital Signs Vital Signs: Vital Signs - 24 hr 04/04/23 14:00 04/04/23 21:28 04/04/23 20:00 Temperature 36.5 C 36.9 C Pulse Rate 73 70 Respiratory Rate 16 13 Blood Pressure 150/74 H 145/80 H Pulse Oximetry 93 93 Oxygen Delivery Room Air 04/05/23 06:00 Temperature 36.9 C Pulse Rate 81 Respiratory Rate 14 Blood Pressure 183/80 H Pulse Oximetry 93 Oxygen Delivery Intake/Output Intake/Output: Intake & Output 04/02/23 04/03/23 04/04/23 04/05/23 23:59 23:59 23:59 23:59 Intake Total 790 2990 500 Balance 790 2990 500 Meds/Results Medications: Active Medications Generic Name Dose Route Start Last Admin Trade Name Freq PRN Reason Stop Dose Admin Acetaminophen 650 mg 04/02/23 22:48 Acetaminophen 325 Mg Tablet PO Q6H PRN Mild Pain (1-3) or Fever Acetaminophen 1,000 mg 04/03/23 07:00 04/05/23 06:04 Acetaminophen 500 Mg Tablet PO Not Given Q6HR THANIA Apixaban 2.5 mg 04/03/23 21:00 04/04/23 20:30 Apixaban 2.5 Mg Tablet PO 05/08/23 20:59 2.5 mg Q12HR THANIA Administration Clonidine HCl 0.1 mg 04/02/23 23:10 04/04/23 16:58 Clonidine Hcl 0.1 Mg Tablet PO 0.1 mg BID THANIA Administration Morphine Sulfate 2 mg 04/02/23 22:48 Morphine Sulfate (*Crx) 2 Mg/Ml Inj IV PUSH Q4H PRN Pain Rated 7-10 Ondansetron HCl 4 mg 04/03/23 16:41 04/04/23 09:08 Ondansetron Inj 4 Mg/2 Ml Vial IV PUSH 4 mg Q6H PRN Administration Nausea And Vomiting Oxycodone HCl 2.5 mg 04/03/23 09:00 04/05/23 06:04 Oxycodone Hcl (*Crx) 2.5 Mg Tab Ir PO 2.5 mg Q4HR THANIA Administration Oxycodone HCl 2.5 mg 04/03/23 06:55 Oxycodone Hcl (*Crx) 2.5 Mg Tab Ir PO Q4H PRN Pain Rated 7-10 Radiology Results: ITS Impressions Hip CT 04/02/23 16:04 IMPRESSION: 1. 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 Slight misregistration of the explanted screw tracks along karla
[2023-04-05 08:00] VITALS: PULSE 81; RESP 14; O2SAT 93
[2023-04-05] MEDS: cloNIDine HCL 0.1 MG TABLET PO (08:36)
[2023-04-05] MEDS: APIXABAN 2.5 MG TABLET PO (08:36)
[2023-04-05 10:48] VITALS: BP 167/84
--- NOTE | 2023-04-05 11:26 | PM.DS ---
DS: Admitting Diagnosis Discharge Date 04/05/23 Admitting Diagnosis left hip pain DS: Discharge Diagnosis Discharge Diagnosis (1) Left hip pain: Code(s): M25.552 - Pain in left hip Status: Acute Assessment and Plan: CT scan shows completely risks is near completely ununited fracture at the left femoral neck. Dr. Sanford has been consulted, aspiration of the joint for fluid testing performed. Small amount of fluid drained, low likelihood of infection but will follow up. resume Eliquis until 1 week prior to surgery (2) Fracture of left femur with nonunion: Code(s): S72.92XK - Unspecified fracture of left femur, subsequent encounter for closed fracture with nonunion Status: Acute Assessment and Plan: ortho following s/p pin removal on 04/01 with increasing pain. agreeable to [facility] placement at d/c for continued therapy (3) Hypertension: Qualifiers: Hypertension type: primary hypertension Qualified Code(s): I10 - Essential (primary) hypertension Code(s): I10 - Essential (primary) hypertension Status: Chronic (4) Tobacco dependence: Code(s): F17.200 - Nicotine dependence, unspecified, uncomplicated Status: Chronic Assessment and Plan: smoking cessation discussed DS: Summary Hospital Course Hospital Course: Patient to be discharged today, per ortho. Orders for discharge and instructions were completed by ortho and she is willing to go to [facility] at this time. Discussed at length with her the benefits of, encouraged her to quite smoking and to follow up with PT as recommended. She is medically stable to be discharged today. She will have surgery after [place] to repair her hip. She is low cardiac risk for surgical intervention. Ortho following, will continue Eliquis until 1 week prior to surgery. Time spent discussing smoking cessation with patient: 3 to 10 minutes Status at Discharge Functional status at discharge: uses cane/walker Overall status at discharge: patient is not back to baseline Time Spent with Patient Time attestation: Total time spent providing and/or coordinating discharge services: Exam Narrative: General:?Well-developed, nontoxic-appearing female sitting up in chair. HEENT:??Normocephalic, atraumatic. Wearing corrective lenses. PERRL, EOMI. Neck:??Supple. Respiratory:?Lungs are clear to auscultation bilaterally. Cardiovascular:?RRR with normal S1-S2. Gastrointestinal:??Abdomen is soft, nontender, and nondistended with positive bowel sounds. Skin:??Warm and dry.? No rash or lesions on limited exam. Extremities:??No cyanosis, clubbing, or edema. Radial and pedal pulses intact. Musculoskeletal:?Left hip is mildly swollen. Surgical dressing is clean, dry, and intact. There is surrounding ecchymosis. Neurological:??A&O x3. Cranial nerves 2-12 are grossly intact. No gross focal deficits to casual conversation. Psychiatric:??Pleasant and cooperative with normal mood and affect.? Judgment and insight intact. DS: Data Data Completed and Pending Labs on day of discharge: Labs from last 24 hours 04/05/23 06:34 WBC 6.1 RBC 3.91 L Hgb 12.8 Hct 38.7 MCV 99.0 MCH 32.7 MCHC 33.1 RDW 13.5 Plt Count 237 MPV 10.0 Sodium 140 Potassium 4.2 Chloride 106 Carbon Dioxide 26 Anion Gap 8 BUN 18 H Creatinine 0.80 Estim Creat Clear Calc 53 Estimated GFR > 60 Glucose 105 Calcium 9.9 Total Bilirubin 0.5 Direct Bilirubin 0.0 AST 33 ALT 27 Alkaline Phosphatase 47 Total Protein 7.0 Albumin 4.1 Preliminary micro results at discharge 04/03/23 12:17 Anaerobic Culture - Preliminary Hip Left Aerobic Culture - Preliminary Discharge Plan Discharge Consulting providers: Richie Sanford Discharging Clinician: Luis Brody Anticipated Discharge Date/Time: 04/04/23 09:31 Patient Disposition: Home, Self-Care Activity: may shower Diet: as tolerated Wound Care Instructions: keep
--- NOTE | 2023-04-05 12:49 | PM.PNORT ---
Progress Note: A&P Assessment and Plan (1) Closed fracture of neck of femur with nonunion: Code(s): S72.009K - Fracture of unspecified part of neck of unspecified femur, subsequent encounter for closed fracture with nonunion Status: Acute Plan The patient will be discharged to [facility] she has agreed to stay there up until a day or 2 before as described. Again she has been instructed to be full nonweightbearing bed to chair transfers only for now. Use a bedside commode talked about this in detail today. She is aware she is going to have the surgical procedure for her left hip April 24 and was instructed to call the office if she has any further problems difficulties or questions. She voiced understanding and agrees with the above plan. Subjective Subjective Date/Time Seen: 04/05/23 12:49 Interval history: She was seen at bedside today she is ready for discharge to [facility]. Dr. Sanford has recommended surgical intervention for the nonunion of the left femoral neck fracture. This is going to be a bipolar prosthesis versus total hip arthroplasty. 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 We discussed risks benefits limitations and alternatives in detail including the possibility of bleeding fracture of the bone during the procedure blood clots infection complications with anesthesia and the postoperative course. The patient voiced understanding and agrees with the above plan. The patient was asked to stay in the rehab facility until the surgery April 24 however the patient has refused she does not want to be in rehab during the holiday. She did agree to stay there until a day or 2 prior to . She will then return to [facility] for her surgical procedure. Today the patient states she is feeling well no other complaints. She was advised that she must stay nonweightbearing left lower extremity and basically her activity should be bed to chair only. She was also advised to use a bedside commode instead of moving through the room or her home to get to the bathroom. She was told that if she did not follow instructions terms of weight-bearing and activity she could cause displacement or further fracturing of the proximal femur where the nonunion has occurred. Again the patient voiced understanding. Review of Systems Review of Systems: Ten point review of systems negative Exam Narrative: The patient is alert oriented x3. Normal mood and affect. Pain well controlled today. Vital signs are stable she is afebrile neurovascular she is intact wound clean and dry except for 1 very tiny spot of bloody serous drainage on the bandage she does have some bruising around the proximal thigh from her recent surgery 4 days ago. Calves are benign. No significant swelling the thigh is noted. Objective Data Vital Signs Vital Signs: Vital Signs - 24 hr 04/04/23 14:00 04/04/23 21:28 04/04/23 20:00 Temperature 36.5 C 36.9 C Pulse Rate 73 70 Respiratory Rate 16 13 Blood Pressure 150/74 H 145/80 H Pulse Oximetry 93 93 Oxygen Delivery Room Air 04/05/23 06:00 04/05/23 10:48 04/05/23 08:00 Temperature 36.9 C Pulse Rate 81 81 Respiratory Rate 14 14 Blood Pressure 183/80 H 167/84 H Pulse Oximetry 93 93 Oxygen Delivery Room Air Intake/Output Intake/Output: Intake & Output 04/02/23 04/03/23 04/04/23 04/05/23 23:59 23:59 23:59 23:59 Intake Total 790 2990 936 Balance 790 2990 936 Meds/Results Medications: Active Medications Generic Name Dose Route Start Last Admin Trade Name Freq PRN Reason Stop Dose Admin Acetaminophen 650 mg 04/02/23 22:48 Acetaminophen 325 Mg Tablet PO Q6H PRN Mild Pain (1-3) or Fever Acetaminoph
== END 2023-04-05 13:38 | DRG 566 ==
LOC: ANHED 15:18 → ANH3MEDSUR 18:11
PROVIDERS: Physician Assistant; Admitting Provider Family Medicine; Emergency Provider Emergency Medicine; PCP Family Medicine; Visit Provider Nurse Practitioner
DX: S72.002K Fracture of unspecified part of neck of left femur, subsequent encounter for closed fracture with nonunion (principal); Z91.199 Patient's noncompliance with other medical treatment and regimen due to unspecified reason; I10 Essential (primary) hypertension; F17.210 Nicotine dependence, cigarettes, uncomplicated
CPT/HCPCS: 20611; 36415; 73501; 73502; 73700; 80048; 80053; 80076; 83735; 85025; 85027; 85610; 85652; 85730; 86140; 87070; 87075; 87076; 87185; 87186; 87205; 96374; 97161; 97165; 97530; 97535; 99285; A9270; G0378; G0379; J2405

== ENCOUNTER 2023-04-16 12:01 | Outpatient (CLI) | payer SELFPAY ==
--- NOTE | ~2023-04-16 | XR_ITS ---
EXAMINATION: XR lg joint inject/asp w image DATE: 04/16/2023 13:21 INDICATION: Ununited left hip fracture for assessment prior to planned orthopedic procedure. TECHNIQUE: A time-out was performed to verify the patient's name, date of , and procedure to b e performed. The procedure including the risks, benefits, and alternatives was discussed with the pat ient. Risks discussed included bleeding and infection. The patient understood the risks and agreed to proceed. The skin overlying the left hip joint was prepped and draped in usual sterile fashion. An esthetic was administered with 1% lidocaine subcutaneously. A 22 G needle was advanced under fluoros copic guidance into the joint. 2 mm of relatively clear orange indication serosanguineous fluid was a spirated from the joint. Injection of a small amount of gas confirmed intra-articular positioning of the needle tip. The needle was removed and the entry site was cleaned and dressed. There were no imm ediate complications. Fluoroscopy exposure time was 0.2 minutes. The total number of images was 5. To eliseo DAP was 1.349 Gycm^2 FINDINGS: Real-time fluoroscopy demonstrates the needle in the left hip joint. Cephalad displaced and impacted transcervical fracture of the proximal femur. Lucent screw tracks are seen extending across the intertrochanteric region from a prior attempted fixation. IMPRESSION: 1. Successful left hip joint aspiration yielding 2 mL of relatively clear serosanguineous fluid which was sent to the lab for studies as ordered by the referring physician. Reviewed, dictated and finalized at location A. O FINISH PHOTOGRAPHER IMPRESSION: 1. Successful left hip joint aspiration yielding 2 mL of relatively clear seros anguineous fluid which was sent to the lab for studies as ordered by the referr ing physician.
== END 2023-04-16 12:02 | disposition home or self-care (01) ==
PROVIDERS: PCP Family Medicine; Visit Provider Orthopaedic Surgery
DX: S72.092K Other fracture of head and neck of left femur, subsequent encounter for closed fracture with nonunion (principal)
CPT/HCPCS: 20610; 77002; 87070; 87075; 87205

== ENCOUNTER 2023-05-02 13:46 | Outpatient (CLI) | payer SELFPAY ==
[2023-05-02 14:31] LABS: Urine Cotinine POSITIVE
[2023-05-02 14:47] LABS: Hemoglobin A1C 5.6 % (<5.7)
== END 2023-05-02 13:47 | disposition home or self-care (01) ==
PROVIDERS: PCP Family Medicine; Visit Provider Orthopaedic Surgery
DX: Z01.818 Encounter for other preprocedural examination (principal); S72.92XK Unspecified fracture of left femur, subsequent encounter for closed fracture with nonunion
CPT/HCPCS: 80307; 83036; 86850; 86900; 86901; 87081

== ENCOUNTER 2024-09-21 10:34 | Emergency (ER) | payer MEDICAID, SELFPAY ==
[2024-09-21] VITALS (29 sets, daily range): BP systolic 158–205; BP diastolic 78–117; PULSE 80–116; RESP 16–24; TEMP 36.6; O2SAT 82–100
--- OUTSIDE RECORDS SUMMARY | 2024-09-21 10:36 | XMS_ITS | Patient Health Record ---
Author Organization José Miguel Baltazar, [facility] Address [address] [place], [place] [id number] Care Team Providers Care Woodworking Machine Operator Name Role Phone José Miguel Craft Primary Care Provider [phone] Allergies Allergen (clinical drug ingredient) Drug/Non Drug Allergy documented on EMR Reaction Allergy Type Onset Date Status Codeine Phosphate Unknown Drug Allergy Active Reason For Referral No Information Medications Medication SIG (Take, Route, Fr equency, Duration) Notes Start Date End Date Status A.S.O. Ankle Brace as directed Active Air Pneumatic Cast Boot as directed Use as directed Active Social History Tobacco Use: Social History Observation Description Date Details (start date - stop date) Never Smoker NA - NA smoking Question Answer Notes Are you a: nonsmoker Additional Findings: Tobacco Non-User Current no n-smoker Alcohol Question Answer Notes Did you have a drink containing alcohol in the p ast year? No Interpretation Negative Problems Problem Type SNOMED Code ICD Code Onset Dates Problem Status W/U Status Risk Notes Problem Closed fracture of lateral malleolus (82099576) Nondisplaced fracture of lateral malleolus of left fibula, initial encounter for closed fracture (S82.65XA) Active confirmed Problem Sprain of deltoid ligament of ankle (04641050) Sprain of deltoid ligament of left ankle, initial encounter (S93.422A) Active confirmed Plan Of Treatment No Information Insurance Providers Payer Name Payer Address Payer Phone Subscriber Number Group Number Insured Name Patient Relationship to Insured Coverage Start Date Coverage End Date [facility] [address] [place] [address] [phone] [id number] Amy Bee Self - patient is the insured
--- OUTSIDE RECORDS SUMMARY | 2024-09-21 10:36 | XMS_ITS | Clinical Summary ---
Author Organization [facility] Address [address] [place] [address] Care Team Providers Care Beaming Inspector Name Role Phone Unavailable Primary Care Provider Unavailabl e Source Comments [facility],non-owned Affiliates and Associated Physician Practices is amultiple site organization consisting of ambulatory clinics and hospital sitesin [place], [place], [place] and [place]. This disclosure is being madepursuant to the Care Everywhere program and may not contain all information available regarding this patient. Last updated 18.[facility] [employer] Allergies Active Allergy Reactions Criticality Noted Date Comments Codeine Vomiting 08/28/2020 Medications * Be aware that medications may not be up to date on this document. Alwaysverify current medications with the patient. amLODIPine (NORVASC) 10 MG tablet Take 0.5 (one-half) tablet by mouth once daily 30 tablet 1 08/31/2020 Active chlorthalidone (HYGROTON) 25 MG tablet Take 1 (one) tablet by mouth once daily 30 tablet 1 08/31/2020 Active nicotine (NICODERM CQ) 14 MG/24HR patch Apply 1 (one) patch to skin once daily 30 patch 1 08/31/2020 Active Active Problems Problem Noted Date Diagnosed Date Hypertension 08/29/2020 Vision changes 08/29/2020 Social History Tobacco Use Types Packs/Day Years Used Date Smoking Tobacco: Every Day Cigarettes Smokeless Tobacco: Never Alcohol Use Standard Drinks/Week Comments Never 0 (1 standard drink = 0.6 oz pur e alcohol) Comments Unknown Sex and Gender Information Value Date Recorded Sex Assigned at Not on file Legal Sex Female 7:08 PM CDT Gender Identity Not on file Sexual Orientation Not on file Last Filed Vital Signs Vital Sign Reading Time Taken Comments Blood Pressure 141/84 08/30/2020 6:26 PM CDT Pulse 88 08/30/2020 6:26 PM CDT Temperature 36.8 C (98.3 F) 08/30/2020 8:00 AM CDT Respiratory Rate 13 08/30/2020 12:00 PM CDT Oxygen Saturation 100% 08/30/2020 6:26 PM CDT Inhaled Oxygen Concentration - - Weight 72.6 kg (160 lb) 08/28/2020 7:09 PM CDT Height 165.1 cm (5' 5) 08/28/2020 7:09 PM CDT Body Mass Index 26.63 08/28/2020 7:09 PM CDT Plan of Treatment Health Maintenance Due Date Last Done Comments BONE DENSITY TESTING 1950 COLOGUARD (AGES 45-75) - COLON CA SCREENING 1950 COLON MONITORING 1950 COLONOSCOPY - COLON CA SCREENING 1950 CT COLONOGRAPHY - COLON CA SCREENING 1950 Colorectal Cancer Screening 1950 FIT - COLON CA SCREENING 1950 FLEX SIG - COLON CA SCREENING 1950 MAMMOGRAM 1950 HEPATITIS C SCREENING 02/24/1968 DTAP/TDAP/TD VACCINES (1 - Tdap) 1969 PNEUMOCOCCAL VACCINE 50+ (1 of 2 - PCV) 1969 ZOSTER VACCINE (1 of 2) 02/29/2000 SCREENING FOR DIABETES 08/31/2023 , 08/29/2020, 08/28/2020, Additional history exists COVID-19 VACCINE ( - 2023- season) 2023 DEPRESSION SCREENING 04/29/2024 INFLUENZA VACCINE (Season Ended) 2024 Respiratory Syncytial Virus (RSV) Vaccine Pt: or over 60 yrs (1 - 1-dose 75+ series) 2025 LIPID TESTING 08/29/2025 08/29/2020 HEPATITIS B VACCINE Aged Out No longe r eligible based on patient's age to complete this topic HIB VACCINE Aged Out No longer eligi ble based on patient's age to complete this topic HPV VACCINE Aged Out No longer eligi ble based on patient's age to complete this topic MENINGOCOCCAL (Group B) VACCINE SHARED DECISION-MAKING Aged Out No longer eligible based on patient's age to complete this topic MENINGOCOCCAL GROUPS A/C/Y/W VACCINE Aged Out No longer eligible based on patient's age to complete this topic Procedures Procedure Name Priority Date/Time Associated Diagnosis Comments COMPREHENSIVE METABOLIC PANEL STAT 08/30/2020 3:43 AM CDT LIPID PROFILE STAT 08/29/2020 6:11 PM CDT from Last 3 Months or Most Recently Relevant to Health Maintenance Results * (ABNORMAL) COMPREHENSIVE METABOLIC PANEL (08/30/2020 3:43 AM CDT) [facility] BUN 20 7 - 26 mg/dL 08/30/2020 4:19 AM [facility] Creatinine 1.0 0.6 - 1.2 mg/dL 08/30/2020 4:19 AM [facility] Sodium 142 136 - 145 mmol/L 08/30/2020 4:19 AM [facility] Potassium 4.0 3.5 - 4.5 mmol/L 08/30/2020 4:19 AM [facility] Comment: Hemolysis detected in this specimen. Hemolysis is known to cause elevations in this analyte. Caution should be exercised in the interpretation of this result. Recommend repeat testing if clinically indicated. Hemolysis detected in this specimen. Hemolysis is known to cause elevations in this analyte. Caution should be exercised in the interpretation of this result. Recommend repeat testing if clinically indicated. Chloride 108(H) 98 - 107 mmol/L 08/30/2020 4:19 AM [facility] CO2 19(L) 22 - 29 mmol/L 08/30/2020 4:19 AM [facility] Glucose 114 70 - 115 mg/dL 08/30/2020 4:19 AM [facility] Calcium 9.4 8.4 - 10.2 mg/dL 08/30/2020 4:19 AM [facility] Protein Total 8.0 6.0 - 8.3 g/dL 08/30/2020 4:19 AM [facility] Comment:Hemolysis detected i n this specimen. Hemolysis is known to cause elevations in this analyte. Caution should be exercised in the interpretation of this result. Recommend repeat testing if clinically indicated. Albumin 4.2 3.4 - 5.0 g/dL 08/30/2020 4:19 AM [facility] Bilirubin Total 0.4 0.2 - 1.2 mg/dL 08/30/2020 4:19 AM [facility] Alkaline Phosphatase 49 40 - 150 Units/L 08/30/2020 4:19 AM [facility] ALT 33 0 - 55 Units/L 08/30/2020 4:19 AM [facility] AST 34 5 - 34 Units/L 08/30/2020 4:19 AM [facility] Comment: Hemolysis detected in this specimen. Hemolysis is known to cause elevations in this analyte. Caution should be exercised in the interpretation of this result. Recommend repeat testing if clinically indicated. Hemolysis detected in this specimen. Hemolysis is known to cause elevations in this analyte. Caution should be exercised in the interpretation of this result. Recommend repeat testing if clinically indicated. Anion Gap 19(H) 8 - 18 08/30/2020 4:19 AM [facility] BUN/Creatinine Ratio 20 7 - 23 08/30/2020 4:19 AM [facility] Osmolality Calculated 297 270 - 300 mOsm/kg 08/30/2020 4:19 AM [facility] Albumin/Globulin Ratio 1.1 1.1 - 2.3 08/30/2020 4:19 AM [facility] eGFR 55(L) >60 mL/min/1. 73 m2 08/30/2020 4:19 AM [facility] Blood BLOOD SPECIMEN / Unknown Venipuncture / Unknown 08/30/2020 3:43 AM CDT 08/30/2020 3:49 AM CDT us Ben Hooper MD LAB - CHEMISTRY ORDERABLES Griselda johnson Result [facility] [address] [place] [address], [place] [phone] * (ABNORMAL) LIPID PROFILE (08/29/2020 6:11 PM CDT) Cholesterol Total 196 <200 mg/dL 08/29/2020 6:44 PM T [facility] HDL 63 >40 mg/dL 08/29/2020 6:44 PM T [facility] Comment: ATP III Classification of HDL Cholesterol: <40 mg/dL: Considered a major risk factor. >60 mg/dL: Considered a negative risk factor. LDL Calculated 123(H) <100 mg/dL 08/29/2020 6:44 PM T [facility] Comment: ATP III Classification of LDL Cholesterol: <100 mg/dL: Optimal 100 - 129 mg/dL: Near Optimal/Above Optimal 130 - 159 mg/dL: Borderline High 160 - 189 mg/dL: High >190 mg/dL: Very High Triglycerides 50 <150 mg/dL 08/29/2020 6:44 PM T [facility] Comment: ATP III Classification of Triglycerides: <150 mg/dL: Normal 150 - 199 mg/dL: Borderline High 200 - 400 mg/dL: High >500 mg/dL: Very High Blood BLOOD SPECIMEN / Unknown Venipuncture / Unknown 08/29/2020 6:11 PM CDT 08/29/2020 6:16 PM CDT us Ben Hooper MD LAB - CHEMISTRY ORDERABLES Griselda johnson Result [facility] [address] [place] [address], [facility] [phone] from Last 3 Months or Most Recently Relevant to Health Maintenance Insurance MEDICARE Advance Directives * Full Code (Latest Code Status on File) Date Activated Date Inactivated Comments 08/29/2020 8:39 AM 08/30/2020 7:27 PM
--- OUTSIDE RECORDS SUMMARY | 2024-09-21 10:36 | XMS_ITS | Encounter Summary ---
Author Organization [facility] Health Address [address] [place] [address] Care Team Providers Care Skating Rink Manager Name Role Phone Unavailable Primary Care Provider Unavailabl e Encounter Details Date Type Department Care Team (Late st Contact Info) Description 08/28/2020 Ophth Exam [facility] [address] [place] [phone] Tuan Law MD [address] [place] [address] [place] [address] Social History Tobacco Use Types Packs/Day Years [...] on file Sexual Orientation Not on file documented as of this encounter Plan of Treatment Not on file documented as of this encounter Visit Diagnoses Not on filedocumented in this encounter Additional Health Concerns Infection Onset Date Last Indicated Resolved Time COVID-19 Under Investigation 08/29/2020 08/29/2020 08/29/2020 7:38 AM CDT documented as of this encounter
--- OUTSIDE RECORDS SUMMARY | 2024-09-21 10:36 | XMS_ITS | Encounter Summary ---
Author Organization [facility] Health Address [address] [facility] [place] [address] Care Team Providers Care Duck Bill Operator Name Role Phone Unavailable Primary Care Provider Unavailabl e Encounter Details Date Type Department Care Team (Late st Contact Info) Description 08/30/2020 Ophth Exam [facility] [address] [place] [address] Carlota Barrow MD No info available Social History Tobacco Use Types Packs/Day Years [...]
--- OUTSIDE RECORDS SUMMARY | 2024-09-21 10:36 | XMS_ITS | Encounter Summary ---
Author Organization [facility] Health Address [address] [facility] [place] [address] Care Team Providers Care Spanish Literature Professor Name Role Phone Unavailable Primary Care Provider Unavailabl e Encounter Details Date Type Department Care Team (Late st Contact Info) Description 08/29/2020 Ophth Exam [facility] [address] [facility], [place] [address] Keeley Feng MD [address] [address] [place] [address] Social History Tobacco Use Types Packs/Day Years [...]
[2024-09-21 12:12] LABS: Basophils Percent Auto 0.2 % (0.2-1.2); Hematocrit 46.9 % (37.0-47.0); Hemoglobin 15.4 g/dL (12.0-15.0); Immature Granulocyte Absolute 0.02 K/mm3 (0.00-0.031); Immature Granulocyte Percent A 0.2 % (0-0.5); Lymphocytes Absolute Auto 0.98 K/mm3 (0.9-3.2); Lymphocytes Percent Auto 11.1 % (18.3-44.2); Mean Corpuscular HGB Conc 32.8 g/dl (32-36); Mean Corpuscular Hemoglobin 31.2 pg (26-34); Mean Corpuscular Volume 94.9 fl (80-100); Mean Platelet Volume 9.3 fl (7.4-10.4); Monocytes Absolute Auto 0.4 K/mm3 (0.1-0.6); Monocytes Percent Auto 4.8 % (2.6-8.5); Neutrophils Absolute Auto 7.4 K/mm3 (1.3-6.7); Neutrophils Percent Auto 83.7 % (45.5-73.1); Platelet Count Result 317 k/mm3 (150-375); Red Blood Count 4.94 M/mm3 (4.2-5.4); Red Cell Distribution Width 12.9 % (11.5-14.5); White Blood Count 8.8 K/mm3 (4.5-10.0)
[2024-09-21 12:21] LABS: Alanine Aminotransferase 30 U/L (6-35); Alkaline Phosphatase 53 U/L (38-126); Anion Gap 11 mmol/L (4-12); Aspartate Amino Transferase 38 U/L (14-36); Bilirubin,Total 0.6 mg/dL (0.2-1.3); Blood Urea Nitrogen 18 mg/dL (7-17); Carbon Dioxide 28 mmol/L (22-30); Chloride 102 mmol/L (98-107); Estimated CRCL calculation 55 ml/min; Estimated Glomerular Filt Rate > 60; Glucose 138 mg/dL (65-110); Lipase 130 U/L (23-300); Potassium 4.2 mmol/L (3.4-5.0); Sodium 141 mmol/L (137-145)
--- NOTE | 2024-09-21 12:23 | ED.GENADULT ---
HPI - General Adult General Chief complaint: Nausea/Vomiting/Diarrhea Stated complaint: N/V x 1 day Time Seen by Provider: 09/21/24 12:08 Source: patient Mode of arrival: ambulatory Limitations: no limitations History of Present Illness HPI narrative: 74 years old white female came from assisted complaining of nausea and vomiting started yesterday few hours after eating her lunch. Patient is telling me that she had the same food like most of the people over there. Nobody have trouble except her. She denies any fever, chills, diarrhea, abdominal pain, chest pain, shortness of breath or back pain. Patient is telling me that she been vomiting since noon yesterday until now. Did not take her morning blood pressure medicine. Related Data Allergies Allergy/AdvReac Type Severity Reaction Status Date / Time tramadol AdvReac Intermediate Nausea Verified 09/21/24 11:48 codeine AdvReac Nausea and Verified 09/21/24 11:48 Vomiting Review of Systems Review of Systems: All systems reviewed & are unremarkable except as noted in HPI and below PMFSH Past Medical History Medical History Hypertension Tobacco dependence Subcapital fracture of left hip (06/2022) Surgical History Surgical History History of open reduction and internal fixation (ORIF) procedure Repair left subcapital hip fracture. Family History Family History Other Heart disease Hypertension Social History Social History Social History: Surrogate medical decision maker: Miguel Hines, son. Code status: Full code. Smoking packs per day: 1 Smoking cigarettes per day: 20.0 Years smoked: 43 Smoking pack-years: 43.00 Smoking status: Former smoker Tobacco type: cigarettes Smoking end date: 04/01/23 Additional smoking assessment comments: DENIES ANY FORM OF TOBACCO USE Alcohol intake: never Substance use: never Substance use type: does not use Do You Feel Safe in your Home?: Yes Lack of Transportation: No Lack of Food: Never True Current Housing: I Have Housing Concerned About Future Housing: No Difficulty Paying Gas/Electric Bills: No Difficulty Paying for Meds: No Currently Unemployed: YES Education: High School Diploma/GED Difficulty w/ Childcare or Family Care: No Living arrangements: with family Additional living arrangements comments: Lives in [place] with son. Occupation/Education: retired Additional occupation/education comments: Retired. Spiritual care concerns: No Exam Narrative: General appearance: Well-developed, well-nourished Skin: Normal color Head: Normocephalic, nontraumatic Eyes: Clear conjunctiva ENT: Oropharynx normal, ears normal, nose normal Neck: Supple, nontender Chest and respiratory: Airway patent, no respiratory distress, no accessory muscle use Heart: Regular rate/rhythm Abdomen: Soft, nontender, no organomegaly, quiet bowel sounds Vascular: Normal peripheral pulses, normal capillary refill. Musculoskeletal: Normal range of motion, nontender back Neurologic: Alert and oriented ?3, APPLICATION SUPPORT MANAGER is normal as tested, no gross motor deficit Course Vital Signs Vital signs: Vital Signs Temperature 36.6 C 09/21/24 10:36 Pulse Rate 116 H 09/21/24 10:36 Respiratory Rate 18 09/21/24 10:36 Blood Pressure 173/104 H 09/21/24 10:36 Pulse Oximetry 98 09/21/24 10:36 Oxygen Delivery Room Air 09/21/24 10:36 Temperature 36.6 C 09/21/24 10:36 Pulse Rate 103 H 09/21/24 11:46 Respiratory Rate 20 09/21/24 11:46 Blood Pressure 205/106 H 09/21/24 11:45 Pulse Oximetry 98 09/21/24 11:46 Oxygen Delivery Room Air 09/21/24 10:36 Medical Decision Making [facility] Narrative Medical decision making narrative: Patient came with nausea and vomiting otherwise asymptomatic Vital signs showing blood pressure 173/104, heart rate 116, patient did not take her blood pressure medication this morning. Physical examination unremarkable Differential diagnosis gastroenteritis, anxiety stress related symptoms Blood workup today includes CBC, CMP, lipase showed hemoglobin 15.4 otherwise insignificant Urinalysis showed no evidence of infection Diagnosis vomiting of unknown etiology Discharged on Zofran. Discharge Vital Signs Vital Signs: Vital Signs Temperature 36.6 C 09/21/24 10:36 Pulse Rate 116 H 09/21/24 10:36 Respiratory Rate 18 09/21/24 10:36 Blood Pressure 173/104 H 09/21/24 10:36 Pulse Oximetry 98 09/21/24 10:36 Oxygen Delivery Room Air 09/21/24 10:36 Temperature 36.6 C 09/21/24 10:36 Pulse Rate 103 H 09/21/24 11:46 Respiratory Rate 20 09/21/24 11:46 Blood Pressure 205/106 H 09/21/24 11:45 Pulse Oximetry 98 09/21/24 11:46 Oxygen Delivery Room Air 09/21/24 10:36 Lab Data 09/21/24 11:58 09/21/24 11:58 Labs: Lab Results 09/21/24 09/21/24 Range/Units 11:58 12:31 WBC 8.8 (4.5-10.0) K/mm3 RBC 4.94 (4.2-5.4) M/mm3 Hgb 15.4 H (12.0-15.0) g/dL Hct 46.9 (37.0-47.0) % MCV 94.9 (80-100) fl MCH 31.2 (26-34) pg MCHC 32.8 (32-36) g/dl RDW 12.9 (11.5-14.5) % Plt Count 317 (150-375) k/mm3 MPV 9.3 (7.4-10.4) fl Immature Gran % (Auto) 0.2 (0-0.5) % Neut % (Auto) 83.7 H (45.5-73.1) % Lymph % (Auto) 11.1 L (18.3-44.2) % Beckham % (Auto) 4.8 (2.6-8.5) % Eos % (Auto) 0.0 (0-4.4) % Baso % (Auto) 0.2 (0.2-1.2) % Lymph # (Auto) 0.98 (0.9-3.2) K/mm3 Beckham # (Auto) 0.4 (0.1-0.6) K/mm3 Eos # (Auto) 0.0 (0-0.3) K/mm3 Baso # (Auto) 0.0 (0.0-0.1) K/mm3 Abs Immat Gran (auto) 0.02 (0.00-0.031) K/mm3 Absolute Neuts (auto) 7.4 H (1.3-6.7) K/mm3 Absolute Nucleated RBC 0.000 (0.0-0.012) K/mm3 Nucleated RBC % 0.0 (0.0-0.2) % Sodium 141 (137-145) mmol/L Potassium 4.2 (3.4-5.0) mmol/L Chloride 102 (98-107) mmol/L Carbon Dioxide 28 (22-30) mmol/L Anion Gap 11 (4-12) mmol/L BUN 18 H (7-17) mg/dL Creatinine 0.78 (0.7-1.0) mg/dL Estim Creat Clear Calc 55 ml/min Estimated GFR > 60 (59 - ) Glucose 138 H (65-110) mg/dL Calcium 10.0 (8.4-10.2) mg/dL Total Bilirubin 0.6 (0.2-1.3) mg/dL AST 38 H (14-36) U/L ALT 30 (6-35) U/L Alkaline Phosphatase 53 (38-126) U/L Total Protein 9.0 H (6.3-8.2) g/dL Albumin 5.0 (3.5-5.1) g/dL Lipase 130 (23-300) U/L Urine Color Yellow (Yellow) Urine Appearance Cloudy H (Clear) Urine pH 7.5 (5.0-9.0) Ur Specific [place] 1.015 (1.001-1.035) Urine Protein 3+ H (Negative) mg/dL Urine Glucose (UA) Negative (Negative) mg/dL Urine Ketones Negative (Negative) mg/dL Ur Blood (Man) 2+ H (Negative) Urine Nitrate Negative (Negative) Urine Bilirubin Negative (Negative) Urine Urobilinogen 0.2 (<2.0) mg/dL Leukocyte Esterase Rfl Negative (Negative) BIBI/UL Urine RBC 21-50 H (0-2) /hpf Urine WBC 0-5 (0-3) /hpf Ur Squamous Epith Cells Few (Few) /hpf Urine Bacteria None seen /hpf Urine Casts 0-2 Discharge Plan Discharge Clinical Impression: Vomiting Patient Disposition: MD Residential/Asst Living Condition: Improved Instructions: Acute Nausea and Vomiting (ED) Additional Instructions: Return if symptoms are worsening , call your family physician for appointment, take Tylenol as as needed for aches and pain, continue home medications. Patient Language: Danish Prescriptions: New ondansetron 4 mg tablet,disintegrating 4 mg PO Q4H PRN (Reason: nausea and vomiting) 3 Days Qty: 10 0RF No Action clonidine HCl 0.1 mg tablet See Rx Instructions .ROUTE .COMPLEX Qty: 60 0RF Dose Instruction: TAKE 1 TABLET BY MOUTH TWICE DAILY Rx Instructions: TAKE 1 TABLET BY MOUTH TWICE DAILY lidocaine [Lidocaine Pain Relief] 4 % Adhesive Patch,Medicated 1 patch transdermal DAILY Qty: 7 0RF gabapentin [Neurontin] 300 mg Capsule 300 mg PO QHS Qty: 30 0RF ondansetron 4 mg Tablet,Disintegrating 4 mg PO Q6H Qty: 28 0RF Eliquis 2.5 mg Tablet 2.5 mg PO Q12HR Qty: 30 0RF Patient Comments: PT STATES HAS NOT STARTED YET acetaminophen 500 mg Tablet 500 mg PO Q6HR Qty: 90 0RF Follow-up/Referrals: PHYSICIAN NOT ON STAFF,NONSTAFF [Non-Staff] -
--- OUTSIDE RECORDS SUMMARY | 2024-09-21 12:27 | XMS_ITS | Encounter Summary ---
Author Organization [facility] Health Address [address] [facility] [place] [address] Care Team Providers Care Books Salesperson Name Role Phone Unavailable Primary Care Provider Unavailabl e Encounter Details Date Type Department Care Team (Late st Contact Info) Description 08/30/2020 Ophth Exam [facility] [address] [place] [address] Carlota Barrow MD No info available Social [...]
--- OUTSIDE RECORDS SUMMARY | 2024-09-21 12:27 | XMS_ITS | Encounter Summary ---
Author Organization [facility] Health Address [address] [place] [address] Care Team Providers Care Hospice Patient Care Secretary Name Role Phone Unavailable Primary Care Provider Unavailabl e Encounter Details Date Type Department Care Team (Late st Contact Info) Description 08/29/2020 Ophth Exam [facility] [address] [facility], [place] [address] Keeley Feng MD [address] [facility] [address] [place] [address] Social History Tobacco Use Types [...]
--- OUTSIDE RECORDS SUMMARY | 2024-09-21 12:27 | XMS_ITS | Encounter Summary ---
Author Organization [facility] Health Address [address] [facility] [place] [address] Care Team Providers Care Liquid Chlorine Operator Name Role Phone Unavailable Primary Care Provider Unavailabl e Encounter Details Date Type Department Care Team (Late st Contact Info) Description 08/28/2020 Ophth Exam [facility] [address] [place] [phone] Tuan Law MD [address] [place] [address] [place] [address] Social History Tobacco Use Types Packs/Day Years [...]
--- OUTSIDE RECORDS SUMMARY | 2024-09-21 12:27 | XMS_ITS | Clinical Summary ---
Author Organization [facility] Address [address] [place] [address] Care Team Providers Care Bicycle Service Technician Name Role Phone Unavailable Primary Care Provider Unavailabl e Source Comments [facility],non-owned Affiliates and Associated Physician Practices is amultiple site organization consisting of ambulatory clinics and hospital sitesin [place], [place], [place] and [place]. This disclosure is being madepursuant to the Care Everywhere program and may not contain all information available regarding this patient. Last updated 18.[facility] [employer] Allergies Active Allergy Reactions Criticality Noted Date [...] COMPREHENSIVE METABOLIC PANEL (08/30/2020 3:43 AM CDT) [facility] BUN 20 7 - 26 mg/dL 08/30/2020 4:19 AM [facility] Creatinine 1.0 0.6 - 1.2 mg/dL 08/30/2020 4:19 AM [facility] Sodium 142 136 - 145 mmol/L 08/30/2020 4:19 AM [facility] Potassium 4.0 3.5 - 4.5 mmol/L 08/30/2020 4:19 AM [facility] Comment: Hemolysis detected in this specimen. Hemolysis [...] 98 - 107 mmol/L 08/30/2020 4:19 AM [facility] CO2 19(L) 22 - 29 mmol/L 08/30/2020 4:19 AM [facility] Glucose 114 70 - 115 mg/dL 08/30/2020 4:19 AM [facility] Calcium 9.4 8.4 - 10.2 mg/dL 08/30/2020 4:19 AM [facility] Protein Total 8.0 6.0 - 8.3 g/dL 08/30/2020 4:19 AM [facility] Comment:Hemolysis detected i n this specimen. Hemolysis is known to cause elevations in this analyte. Caution should be exercised in the interpretation of this result. Recommend repeat testing if clinically indicated. Albumin 4.2 3.4 - 5.0 g/dL 08/30/2020 4:19 AM [facility] Bilirubin Total 0.4 0.2 - 1.2 mg/dL 08/30/2020 4:19 AM [facility] Alkaline Phosphatase 49 40 - 150 Units/L 08/30/2020 4:19 AM [facility] ALT 33 0 - 55 Units/L 08/30/2020 4:19 AM [facility] AST 34 5 - 34 Units/L 08/30/2020 4:19 AM [facility] Comment: Hemolysis detected in this specimen. Hemolysis [...] 19(H) 8 - 18 08/30/2020 4:19 AM [facility] BUN/Creatinine Ratio 20 7 - 23 08/30/2020 4:19 AM [facility] Osmolality Calculated 297 270 - 300 mOsm/kg 08/30/2020 4:19 AM [facility] Albumin/Globulin Ratio 1.1 1.1 - 2.3 08/30/2020 4:19 AM [facility] eGFR 55(L) >60 mL/min/1. 73 m2 08/30/2020 4:19 AM [facility] Blood BLOOD SPECIMEN / Unknown Venipuncture / Unknown 08/30/2020 3:43 AM CDT 08/30/2020 3:49 AM CDT us Ben Hooper MD LAB - CHEMISTRY ORDERABLES Griselda johnson Result [facility] [address] [place] [address], [place] [phone] * (ABNORMAL) LIPID PROFILE (08/29/2020 6:11 PM CDT) Cholesterol Total 196 <200 mg/dL 08/29/2020 6:44 PM T [facility] HDL 63 >40 mg/dL 08/29/2020 6:44 PM T [facility] Comment: ATP III Classification of HDL Cholesterol: <40 mg/dL: Considered a major risk factor. >60 mg/dL: Considered a negative risk factor. LDL Calculated 123(H) <100 mg/dL 08/29/2020 6:44 PM T [facility] Comment: ATP III Classification of LDL Cholesterol: <100 mg/dL: Optimal 100 - 129 mg/dL: Near Optimal/Above Optimal 130 - 159 mg/dL: Borderline High 160 - 189 mg/dL: High >190 mg/dL: Very High Triglycerides 50 <150 mg/dL 08/29/2020 6:44 PM T [facility] Comment: ATP III Classification of Triglycerides: <150 mg/dL: Normal 150 - 199 mg/dL: Borderline High 200 - 400 mg/dL: High >500 mg/dL: Very High Blood BLOOD SPECIMEN / Unknown Venipuncture / Unknown 08/29/2020 6:11 PM CDT 08/29/2020 6:16 PM CDT us Ben Hooper MD LAB - CHEMISTRY ORDERABLES Griselda johnson Result [facility] [address] [place] [address], [facility] [phone] from Last 3 Months or Most Recently Relevant to Health Maintenance Insurance MEDICARE Advance Directives * Full Code (Latest Code Status on File) Date Activated Date Inactivated Comments 08/29/2020 8:39 AM 08/30/2020 7:27 PM
[2024-09-21 12:41] LABS: Add Urine Microscopic? YES; Appearance Urine Cloudy (Clear); Bacteria Urine None Seen /hpf; Bilirubin Urine Negative (Negative); Blood Urine 2+ (Negative); Color Urine Yellow (Yellow); Glucose Urine UA Negative (Negative); Ketones Urine Negative (Negative); Leukocyte Esterase Ur Negative LEU/UL (Negative); Nitrate Urine Negative (Negative); Non Pathogenic Casts 0-2; Protein Urine 3+ mg/dL (Negative); RBC Urine 21-50 /hpf (0-2); Specific Grav Ur 1.015 (1.001-1.035); Squamous Epithelial Cell Urine Few /hpf (Few); Urobilinogen Urine 0.2 mg/dL (<2.0); WBC Urine 0-5 /hpf (0-3); pH Urine 7.5 (5.0-9.0)
[2024-09-21] MEDS: SODIUM CHLORIDE 0.9% IV 1,000 ML 999 ML IV CONT ×2 (12:44→13:57)
[2024-09-21] MEDS: ONDANSETRON INJ 4 MG/2 ML VIAL IV PUSH (12:44)
[2024-09-21] MEDS: KETOROLAC 15 MG/ML VIAL (*BKC) IV PUSH (13:57)
[2024-09-21] MEDS: LABETALOL HCL INJ 100 MG/20 ML VIAL 20 MG IV PUSH (14:01)
== END 2024-09-21 15:38 ==
PROVIDERS: Emergency Medicine; Emergency Provider Emergency Medicine
DX: R11.2 Nausea with vomiting, unspecified (principal); I10 Essential (primary) hypertension; Z87.891 Personal history of nicotine dependence; Z79.01 Long term (current) use of anticoagulants
CPT/HCPCS: 36415; 80053; 81001; 83690; 85025; 96361; 96374; 96375; 99284; J1885; J2405; J7030

== ENCOUNTER 2024-10-19 11:26 | Outpatient (CLI) | payer MEDICAID, SELFPAY ==
--- NOTE | ~2024-10-19 | CT_ITS ---
CT Scan of the Chest without Contrast: Clinical Indication: Lung cancer screening, nicotine dependence Technique: Contiguous sections were acquired throughout the chest without intravenous contrast. Dose reduction technique was used on this scan by utilizing automated exposure control and iterative recon struction technique. The dose-length product (DLP) was 65.88 mGy-cm. Findings: There is no evidence of any significant mediastinal, hilar or axillary lymphadenopathy. There are ath erosclerotic calcifications of the aorta and coronary arteries. No pleural effusion. There is minimal pericardial fluid. Scattered calcified granulomas are present. There is an 11 mm noncalcified nodule in the left lower l obe (axial image 59). Images through the upper abdomen reveal no abnormalities. Impression: Lung RADS 4A: Suspicious. Recommend 3 month follow-up CT versus PET/CT. Reviewed, dictated and finalized at [facility]. Impression: Lung RADS 4A: Suspicious. Recommend 3 month follow-up CT versus PET/CT.
== END 2024-10-19 11:27 | disposition home or self-care (01) ==
PROVIDERS: Visit Provider Family Medicine
DX: Z12.2 Encounter for screening for malignant neoplasm of respiratory organs (principal); Z87.891 Personal history of nicotine dependence
CPT/HCPCS: 71271

== ENCOUNTER 2024-11-22 11:55 | Emergency (ER) | payer MEDICAID, SELFPAY ==
--- NOTE | ~2024-11-22 | CT_ITS ---
EXAMINATION: CT abdomen pelvis w con DATE: 11/22/2024 15:15 INDICATION: abd pain, vomiting TECHNIQUE: Computed tomography (CT) of the abdomen and pelvis was performed with 100 mL Omnipaque-350 intravenous contrast. Automated exposure control and iterative reconstruction technique were employe d. The dose-length product was 491.96 mGy-cm. COMPARISON: CT hip 04/02/2023. FINDINGS: Lower thorax: Small volume pericardial fluid. Liver: Subcentimeter left lobe hypodensity, likely cyst or hemangioma. Simple inferior right lobe cys t Biliary/Gallbladder: Gallbladder is normal. No intrahepatic duct dilation. Mild dilation of the commo n bile duct to 10 mm, no inflammatory changes. Pancreas: No mass or duct dilation. Spleen: Normal. Adrenals:No mass. Kidneys: No suspicious mass, obstructing stone, or hydronephrosis. Multiple nonobstructing upper pole calculi. GI tract: Mild distal esophageal and gastric wall edema. No small or large bowel dilation. Appendix n ot confidently visualized. Mesentery/Peritoneum: No ascites, mass, or free air. Retroperitoneum: No mass. Atherosclerotic calcifications of intra-abdominal arterial vessels. Left re nal vein varix. Pelvis: Moderate bladder wall edema. Absent uterus.. Soft Tissues: Soft tissues and body wall unremarkable. Bones: Chronic nonunited left femoral neck fracture with ostial lysis, and increased displacement. In creased cortical collapse at left the femoral head IMPRESSION: Small pericardial effusion. Common bile duct dilation, without inflammatory change or obstructing stone/mass. Correlate with bili [place] labs. Consider MRCP. Mild esophagitis/gastritis. Left renal vein varix. Moderate bladder wall edema as can be seen with cystitis. Chronic nonunited left femoral neck fracture, with increased displacement and early femoral head tom apse. Reviewed, dictated and finalized at location K. IMPRESSION: Small pericardial effusion. Common bile duct dilation, without inflammatory change or obstructing stone/mas s. Correlate with biliary labs. Consider MRCP. Mild esophagitis/gastritis. Left renal vein varix. Moderate bladder wall edema as can be seen with cystitis. Chronic nonunited left femoral neck fracture, with increased displacement and e terri femoral head collapse.
--- OUTSIDE RECORDS SUMMARY | 2024-11-22 11:57 | XMS_ITS | Patient Health Record ---
Author Organization José Miguel Baltazar, [facility] Address [address] [place], [place] [id number] Care Team Providers Care Drama Teacher Name Role Phone José Miguel Craft Primary Care Provider Allergies Allergen (clinical drug ingredient) Drug/Non Drug [...] Notes Problem Closed fracture of lateral malleolus (65609759) Nondisplaced fracture of lateral malleolus of left fibula, initial encounter for closed fracture (S82.65XA) Active confirmed Problem Sprain of deltoi d ligament of left ankle, initial encounter (S93.422A) Active confirmed Plan Of Treatment No Information Insurance Providers Payer Name Payer Address Payer Phone Subscriber Number Group Number Insured Name Patient Relationship to Insured Coverage Start Date Coverage End Date Blue [employer] Blue Shield [address] [place] [address] [id number] Amy Bee Self - patient is the insured
--- OUTSIDE RECORDS SUMMARY | 2024-11-22 11:57 | XMS_ITS | Clinical Summary ---
Author Organization [facility] Address [address] [place] [address] Care Team Providers [employer] Officer Name Role Phone Stefany Shelton DO Primary Care Provider [phone] Allergies Active Allergy Reactions Criticality Noted Date Comments Codeine Vomiting,Unknown 08/28/2020 Medications acetaminophen (TYLENOL) 500 MG tablet Take 2 tablets (1,000 mg total) by mouth every 4 (four) hours as needed for Pain. Active olmesartan (BENICAR) 40 MG tabletIndications: Primary hypertension Take 1 tablet (40 mg total) by mouth daily. 90 tablet 1 10/06/19 25 025 Active varenicline, starter pack, (CHANTIX STARTING MONTH ) 0.5 MG X 11 & 1 MG X 42 tabletIndications: Cigarette nicotine dependence with other nicotine-induced disorder Take one 0.5 mg tab by mouth once a day for 3 days, then take one 0.5 mg tab twice a day for 4 days, then take one 1 mg tab twice a day. 53 each 10/06/19 25 Active Additional Information Patient not taking.Reported on 11/09/2024 celecoxib (CELEBREX) 100 MG capsuleIndications :Post-traumatic osteoarthritis of left hip Take 1 capsule (100 mg total) by mouth 2 (two) times daily. 90 capsule 1 10/06/19 25 025 Active zoster vaccine (SHINGRIX) (SHINGRIX) injectionIndicatio ns:Need for shingles vaccine Inject 0.5 mLs into the muscle once for 1 dose. 1 each 10/06/19 25 025 Discontinu ed(Other- Please enter comment in Notes field) oxyCODONE immediate release (ROXICODONE) 5 MG immediate release tablet Take 2 tablets (10 mg total) by mouth every 8 (eight) hours as needed. FOR PAIN Discontinu ed(Other- Please enter comment in Notes field) apixaban (ELIQUIS) 2.5 MG tablet Take 1 tablet (2.5 mg total) by mouth every 12 (twelve) hours. Discontinu ed(Other- Please enter comment in Notes field) cloNIDine (CATAPRES) 0.1 MG tablet Take 1 tablet (0.1 mg total) by mouth 2 (two) times daily. Discontinu ed(Other- Please enter comment in Notes field) lisinopril (PRINIVIL) 20 MG tablet Take 1 tablet (20 mg total) by mouth every morning. Discontinu ed(Error) zoster vaccine (SHINGRIX) (SHINGRIX) injectionIndicatio ns:Need for shingles vaccine Inject 0.5 mLs into the muscle once for 1 dose. 1 each 11/10/19 25 Active Problems Problem Noted Date Diagnosed Date Calcified granuloma of lung 11/09/2024 Overview (11/09/2024): 11/09/2024: Scattered calcified granulomas were also noted on patient's CT lung cancer screening 10/19/2024 Nodule of lower lobe of left lung 10/19/2024 Overview (11/09/2024): Low-dose CT lung cancer screening 10/19/2024 Showed 11 mm noncalcified nodule in left lower lobe Lung RADS 4A-suspicious Recommend 3-month follow-up CT versus PET/CT Assessment & Plan (11/09/2024 11:14 AM CDT): Low-dose CT lung cancer screening 10/19/2024 Showed 11 mm noncalcified nodule in left lower lobe Lung RADS 4A-suspicious Recommend 3-month follow-up CT versus PET/CT CT chest without contrast ordered for 01/19/2025 for patient to complete at [facility]. Need for shingles vaccine 10/05/2024 Overview (10/05/2024): 10/05/2024: Patient is never previously had shingles vaccine. She reports having chickenpox as a child Assessment & Plan (10/05/2024 4:56 PM CDT): Recommend 2 dose shingles vaccine series. Patient was counseled regarding the recommendation and she is agreeable to receive. Have sent Shingrix first dose to patient's local [facility] pharmacy. She was given [facility] VIS to review. Colon cancer screening 10/05/2024 Overview (11/09/2024): 10/05/2024: Patient is never previously participated in colon cancer screening. Denies any known family history of colon cancer. 11/09/2024: Patient send reports Cologuard has been received however has not been completed. Assessment & Plan (11/09/2024 11:20 AM CDT): Encourage patient to complete Cologuard. Assessment & Plan (10/05/2024 4:57 PM CDT): Patient would like to proceed with Cologuard testing. Cologuard testing ordered. Nocturia 09/07/2024 Overview (09/07/2024): 09/07/2024: She reports she has been getting up to urinate 2-3 times at nighttime. She reports she does not drink much liquid prior to bedtime. Assessment & Plan (09/07/2024 5:26 PM CDT): Discussed with patient this could be related to urinary tract infection and/or could be a sign/symptom of sleep breathing disorder such as sleep apnea. Urinalysis ordered to evaluate for UTI. Post-traumatic osteoarthritis of left hip 2024 Overview (11/09/2024): 07/06/2024: She reports she tried Voltaren gel for left hip pain and did not help. She reports she has tried lidocaine patches in the past which also did not help. She is requesting something for pain. 09/07/2024: She reports she ran out of her pain medication. She reports she is been taking routinely and it does help with some of the pain. 11/09/2024: Patient is requesting pain medication. She reports she is taking medications which are prescribed to her. Assessment & Plan (11/09/2024 11:19 AM CDT): Counseled patient regarding her celecoxib prescription which is for her osteoarthritis/pain. She again, cannot have orthopedic surgery on her left hip until she participates in smoking cessation. Unsure if patient is receiving celecoxib prescription from extended living pharmacy. Office will contact patient's residential home regarding her prescription medications as per PDMP, last prescription was filled 09/07/2024 for celecoxib 100 mg capsule twice daily. This medication was refilled by myself 10/05/2024 for 90 days. Assessment & Plan (10/05/2024 5:02 PM CDT): Left hip pain is still present. Patient again counseled that orthopedic surgery will not perform surgery unless she stop smoking. Will continue celecoxib 100 mg twice daily as needed for osteoarthritis pain. Assessment & Plan (09/07/2024 5:23 PM CDT): Refill Celebrex 100 mg twice daily. Repeat renal function testing has been ordered. Discussed with patient that pain would likely resolve with hip replacement however surgeon will not do hip replacement unless she stops smoking cigarettes. Assessment & Plan (07/06/2024 4:01 PM CDT): Discussed with patient that I think she would benefit from Celebrex 100 mg twice daily. Her son would like to wait until tomorrow to find out the name of pharmacy that delivers medication straight to [facility]. Left hip pain 05/25/2024 Overview (05/25/2024): 05/25/2024: Left hip pain likely related to unfixed fracture of left hip. She reports she takes Tylenol. See under acetaminophen abuse. Assessment & Plan (05/25/2024 5:27 PM WATERPROOF BAG CUTTING MACHINE OPERATOR): In order to avoid or try to avoid systemic complications from NSAIDs in the setting of chronic kidney disease, I would like patient to try topical Voltaren gel 2 g up to 4 times daily to her left hip as this is the primary cause of pain she experiences. Her son reports they will purchase this [id number]. 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 She reports she has been able to quit for 1 week or so in the past. She reports she has tried nicotine patch in the past with no relief. She reports she cannot chew nicotine gum due to her teeth. 07/06/2024: She reports there has been no change in amount or frequency of cigarette use. She reports she smokes out of boredom. 09/07/2024: She reports there has been no change in amount of cigarettes she is smoking. She reports she is often bored. 10/05/2024: She reports she would like new prescription for Chantix as she misplaced the other prescription. 11/09/2024: Patient denies taking Chantix. Assessment & Plan (10/05/2024 5:01 PM CDT): Resent in Chantix starter pack. Patient and her sons were counseled regarding potential side effects of medication. She was sent in starter pack to pharmacy. She is counseled that goal is to stop smoking 14 days after starting Chantix prescription. Counseled patient regarding low-dose CT lung cancer screening. Her and her sons are agreeable. Ordered to [facility]. Assessment & Plan (09/07/2024 5:21 PM CDT): Discussed with patient that we could start medication such as Chantix. She is counseled on side effects of this medication. She was sent in starter pack to [facility] pharmacy. She is counseled to stop smoking 14 days after starting Chantix prescription. Assessment & Plan (05/25/2024 5:22 PM WATERPROOF BAG CUTTING MACHINE OPERATOR): She is counseled to work on smoking cessation as she cannot have surgery on left hip without smoking cessation. Assessment & Plan (04/20/2024 12:22 PM WATERPROOF BAG CUTTING MACHINE OPERATOR): Patient counseled at length on smoking cessation and the importance of her various reasons including in the setting of her high blood pressure. Patient counseled to start titrating herself down starting by cutting down and smoking 1 cigarette less per day or per week. Postmenopausal 04/20/2024 Family history of stroke 04/20/2024 Overview (04/20/2024): In son March 2024 Chronic low back pain, unspe cified back pain laterality, unspecified whether sciatica present 04/20/2024 Overview (04/20/2024): Initial visit 04/20/2024: Patient reports she has been taking 1000 mg of acetaminophen every 4 hours as needed. Assessment & Plan (04/20/2024 12:20 PM WATERPROOF BAG CUTTING MACHINE OPERATOR): She is counseled to not take more than 4000 mg of acetaminophen in 24-hour period. Labs are ordered to evaluate liver function. We discussed that we can potentially add other medication to help with her pain pending kidney function. Status post hysterectomy 04/20/2024 Overview (04/20/2024): Initial visit 04/20/2024: She reports she has had hysterectomy however is unsure if she had ovaries and uterus removed. Wheelchair dependent 04/20/2024 Overview (04/20/2024): Initial visit 04/20/2024: She reports she has been using wheelchair since hip fracture in July 2021. She reports she can transfer independently to bedside commode. She also reports that she has a walker however does not use. She reports she has an electric wheelchair at home and rarely uses wheelchair that she is currently in. History of fracture of left hip 04/20/2024 Overview (05/25/2024): Initial visit 04/20/2024: Her son reports she had left hip fracture July 2021. She reports she had pins placed in her left hip and went to [facility] and participated twice in physical therapy. Her son reports that orthopedic surgery would not replace her hip due to her cigarette smoking as she would need to quit smoking for a month or so prior to and after surgery. 05/25/2024: She continues to smoke cigarettes and likely will be able to have surgery anytime soon. She is confined to wheelchair due to this injury. 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 05/25/2024: She reports she takes acetaminophen 1000 mg every 4 or so hours. She reports it only helps for approximately 30 minutes. Assessment & Plan (05/25/2024 5:23 PM WATERPROOF BAG CUTTING MACHINE OPERATOR): Counseled again to not take more than 4000 mg of acetaminophen/Tylenol in 24- hour period. Assessment & Plan (04/20/2024 12:28 PM WATERPROOF BAG CUTTING MACHINE OPERATOR): She is counseled to not take more than 4000 mg of acetaminophen in 24-hour period. Labs are ordered to evaluate liver function. Stage 2 chronic kidney disease 04/20/2024 Overview (11/10/2024): Regimen: Olmesartan 40 mg daily GFR: 71, 11/09/2024 [68, 04/20/2024] Urine microalbumin to creatinine ratio: 15.2, 11/09/2024 [91.4, 04/20/2024] Assessment & Plan (11/10/2024 1:52 PM CDT): Regimen: Olmesartan 40 mg daily GFR: 71, 11/09/2024 [68, 04/20/2024] Urine microalbumin to creatinine ratio: 15.2, 11/09/2024 [91.4, 04/20/2024] GFR has been stable from 6 months ago. Urine microalbumin to creatinine ratio has improved to within normal limits. Continue ARB olmesartan 40 mg daily for renal protection and hypertension. Will continue to monitor Assessment & Plan (09/07/2024 5:23 PM CDT): Repeat renal function testing ordered. Suspect at least CKD stage II. Assessment & Plan (07/06/2024 3:59 PM CDT): Repeat renal function testing ordered for early July 2024 at [facility] Assessment & Plan (05/25/2024 5:25 PM WATERPROOF BAG CUTTING MACHINE OPERATOR): Counseled patient that I suspect at this point she is at CKD stage II however we will need to repeat labs in 3 months from labs 04/20/2024 to assess if her kidney function is stable. There is concern as microalbumin to creatinine ratio is moderately high which increases risk of progression of chronic kidney disease to a higher stage. Goal is adequate blood pressure control. See under hypertension. Assessment & Plan (04/21/2024 10:27 AM WATERPROOF BAG CUTTING MACHINE OPERATOR): Suspect CKD especially in the setting of longstanding hypertension. Only 1 set of labs is available however I do not doubt chronic kidney disease. Labs ordered to evaluate current renal function. Labs returned and show moderately increased albumin to creatinine ratio and EGFR 68. I would like to recheck in 3 months and continue at this time starting on angiotensin receptor andrea for hypertension. Chronic obstructive pulmonar y disease, unspecified COPD type ([facility] 04/20/2024 Overview (04/20/2024): Initial visit 04/20/2024: Patient denies previous history of COPD. She reports she does have a productive cough regularly. Assessment & Plan (04/20/2024 12:46 PM WATERPROOF BAG CUTTING MACHINE OPERATOR): Suspect patient has COPD due to longstanding history of cigarette smoking and symptoms of chronic cough and some mild end expiratory wheezing on physical exam. Discussed with son and patient I would like to order PFT however we will not do today. Also discussed prescribing inhaler medication however patient is unsure if will be covered by her insurance. 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 09/07/2024: She reports she went to [facility]. She reports she was told the back of her eye has some damage. She was told to return in February 20. Assessment & Plan (09/07/2024 5:27 PM CDT): Requesting records from [facility] Primary hypertension 08/29/2020 Overview (11/09/2024): Regimen: Olmesartan 40 mg daily GFR: 68, 04/20/2024 Urine microalbumin to creatinine ratio: 91.4, 04/20/2024 Blood pressure monitoring device at home: Yes Initial visit 04/20/2024: Patient reports she was previously on clonidine. She is not currently on medication therapy. She is not measuring blood pressure measurements at home. 05/25/2024: She reports she started olmesartan 20 mg once daily. She reports she has blood pressure cuff at home however has not been measuring her blood pressure measurements. 11/09/2024: She reports she is taking her medication at home Assessment & Plan (11/09/2024 11:17 AM CDT): Blood pressure elevated in office today. Unsure if patient is taking medication regularly as PDMP reports last dispensed prescription of olmesartan 40 mg once daily 10/05/2024 for 30 days. Will have office contact patient's residential home. Assessment & Plan (10/05/2024 4:57 PM CDT): Blood pressure appropriate in office. Continue olmesartan 40 mg daily. Will plan to repeat renal testing at next visit. Assessment & Plan (09/07/2024 5:22 PM CDT): Blood pressure is elevated in office. Refill olmesartan [address] [facility] last refill was for olmesartan 20 mg daily. Will restart 40 mg daily and continue to monitor. Repeat renal function testing ordered to check GFR and urine microalbumin to creatinine ratio Assessment & Plan (07/06/2024 3:57 PM CDT): Blood pressure appropriate in office today. Continue olmesartan 40 mg daily. Renal function reevaluation ordered for early July 2024. Assessment & Plan (05/25/2024 5:21 PM WATERPROOF BAG CUTTING MACHINE OPERATOR): Blood pressure is elevated in office today. Like to increase olmesartan to 40 mg daily as patient's blood pressure is elevated and she has moderately increased microalbumin to creatinine ratio. She is instructed to use blood pressure measuring device to take measurements daily and bring in log and device at next appointment in 2 weeks. Assessment & Plan (04/20/2024 12:46 PM WATERPROOF BAG CUTTING MACHINE OPERATOR): Blood pressure is significantly elevated today in office. Would like to start patient on ARB olmesartan 20 mg once daily. She is agreeable to starting this medication. She is counseled that we will need to have her blood pressure routinely monitored and I would like her to bring in log at next visit in 2 weeks. She is counseled at length regarding importance of lowering of her blood pressure including decreasing risk of stroke or other cardiovascular event. She is also counseled regarding the finding of AV nicking that was noted on ophthalmologic exam in August 2020 which is typically seen in the setting of chronic high blood pressure. Electrolytes and kidney function labs ordered. Is also recommended that patient have annual dilated eye exam to evaluate the retina. Resolved Problems Problem Noted Date Diagnosed Date Resolved Date Need for diphtheria-tetanus- pertussis (Tdap) vaccine 09/07/2024 10/05/2024 Overview (10/05/2024): Last completed Tdap booster 09/07/2024 Assessment & Plan (09/07/2024 4:51 PM CDT): Will give Tdap today. She was given CDC VIS. She is counseled on vaccine side effects. Need for diphtheria-tetanus- pertussis (Tdap) vaccine 07/06/2024 07/13/2024 Need for prophylactic vaccin ation against Streptococcus pneumoniae (pneumococcus) 07/06/2024 10/05/2024 Overview (10/05/2024): Completed Prevnar 20 09/07/2024 Assessment & Plan (09/07/2024 5:26 PM CDT): She is due for Prevnar 20 pneumonia vaccine. She is agreeable to receive. Will give Prevnar 20. She was given [facility] VIS to review. Counseled on vaccine side effects. Vision changes 08/29/2020 04/20/2024 Overview (04/20/2024): Initial visit 04/20/2024: Per chart review, patient was seen [facility] and vision changes improved and were suspected to be secondary to hypertensive emergency. Was recommended that she have carotid Doppler in the setting of Ocular ischemic syndrome. Patient reports that she did not have done. Encounters Date Type Department Care Team Description 11/11/2024 Results [facility] [address] [place] [id number] Stefany Shelton DO HEPATITIS C ANTIBODY, ALBUMIN URINE RANDOM W/CREATININE, COMPREHENSIVE METABOLIC PANEL 11/09/2024 10:00 AM CDT [facility] [address] [place] [address] Stefany Shelton DO Hypertension (4 week f/u) 11/09/2024 Scan [facility] Scanned, [facility] 11/09/2024 - 11/09/2024 11:59 PM CDT [facility] [address] Stefany Shelton DO Discharge Disposition: Home or Self Care (Routine Discharge) 11/09/2024 Travel 11/03/2024 Scan [facility]CS Scanned, [facility] 11/03/2024 [facility]phone [facility] [address] [facility] [address] [place] [address] Stefany Shelton, DO Information 10/27/2024 Scan [facility] Scanned, [facility] 10/19/2024 Scan [facility] Scanned, [facility] CT (SCAN) 10/08/2024 Scan [facility] Scanned, [facility] 10/06/2024 Telephone [place] [id number] [facility] [address] [place] [address] Stefany Shelton, DO Follow Up Call 10/05/2024 4:00 PM CDT Office Visit [place] [id number] [facility] [address] [place] [address] Stefany Shelton, DO Hypertension (4 week follow up. /Pt states she has not been checking at home. /No questions or concerns today. /) 10/05/2024 Scan [facility] Scanned, [facility] 10/05/2024 Travel 10/02/2024 Scan [facility] Scanned, [facility] 09/29/2024 Scan [facility] Scanned, [facility] 09/28/2024 Scan [facility] Scanned, [facility] 09/28/2024 Telephone [facility] [address] [facility] [address] [place] [address] Stefany Shelton, DO Follow Up Call 09/10/2024 Results Follow-Up [place] [id number] [facility] [address] [place] [address] Stefany Shelton, DO URINALYSIS 09/07/2024 3:40 PM CDT Office Visit [place] [id number] [facility] [address] [place] [address] Stefany Shelton, DO Hip Pain (Left hip./2 mo follow up. /Pt states its not feeling any better. /Pt states she has been doing things at home to work it out. /Pt states she has been taking tylenol and rx as prescribed. /) 09/07/2024 Travel from Last 3 Months Immunizations Immunization Administration Dates Next Due Pneumococcal (Prevnar 20) 09/07/2024 Tdap (Adacel) 09/07/2024 Family History Medical History Relation Comments Alcohol/Drug Brother 1 No Known Problems Father No Known Problems Maternal Grandfather No Known Problems Maternal Grandmother No Known Problems Mother No Known Problems Paternal Grandfather No Known Problems Paternal Grandmother Hypertension Son 2 Hypertension Son 3 Stroke Son 3 Hemorrhagic stro ke, 2023 Relation Status Comments Brother 1 Brother 2 Brother 3 Brother 4 Father Maternal Grandfather Maternal Grandmother Mother Paternal Grandfather Paternal Grandmother Sister 1 Sister 2 Son 1 Alive Son 2 Alive Son 3 Alive Son 4 Social History Tobacco Use Types Packs/Day Years Used Date Smoking Tobacco: Former Cigarettes 1 40.6 S tarted: 04/20/1984 Smokeless Tobacco: Never Tobacco Cessation:Counseling Given: No Alcohol Use Standard Drinks/Week Comments Not Currently 0 (1 standard drink = 0.6 oz pur e alcohol) Comments No Sex and Gender Information Value Date Recorded Sex Assigned at Female 09/07/2024 3:37 PM CDT Legal Sex Female 8:12 AM WATERPROOF BAG CUTTING MACHINE OPERATOR Gender Identity Female 09/07/2024 3:37 PM CDT Sexual Orientation Not on file Last Filed Vital Signs Vital Sign Reading Time Taken Comments Blood Pressure 146/82 11/09/2024 10:27 AM CDT Ma nual Pulse 92 11/09/2024 10:07 AM CDT Temperature 36.7 C (98.1 F) 11/09/2024 10:07 AM CDT Respiratory Rate 16 11/09/2024 10:07 AM CDT Oxygen Saturation 97% 11/09/2024 10:07 AM CDT Inhaled Oxygen Concentration - - Weight 77.6 kg (171 lb) 11/09/2024 10:07 AM CDT Height 162.6 cm (5' 4) 11/09/2024 10:07 AM CDT Body Mass Index 29.35 11/09/2024 10:07 AM CDT Plan of Treatment Upcoming Encounters Date Type Department Care Team (Late st Contact Info) Description 02/01/2025 10:20 AM CDT Office Visit [facility] [address] [place] [address] Ese Simms NP [address] [place] [address] Health Maintenance Due Date Last Done Comments Colorectal Cancer Screening Colonoscopy (10 Years) 1950 Mammogram Screening 1990 Lung Cancer Screening 02/29/2000 Zoster Vaccines (1 of 2) 02/29/2000 RSV Immunization or 60+ Years (1 - Risk 60-74 years 1-dose series) 2010 Dexa Scan (General) 2015 PHQ-2 (Physician [place]) 04/29/2024 COVID-19 Vaccine (3 - 2023-2 5 season) 2025 12/04/2020, 11/13/2020 Postponed from 12/29/2023 (Patient Refused) DTaP, Tdap and Td Vaccines ( 2 - Td or Tdap) 09/07/2034 09/07/2024 Pneumococcal Vaccine: 50+ Years Completed 09/07/2024 Hepatitis C Completed 11/09/2024 Meningococcal B Vaccine Aged Out No l onger eligible based on patient's age to complete this topic Meningococcal Vaccine Aged Out No rory clarissa eligible based on patient's age to complete this topic RSV Immunizations Under 20 Months Aged Out No longer eligible b ased on patient's age to complete this topic Procedures Procedure Name Priority Date/Time Associated Diagnosis Comments COMPREHENSIVE METABOLIC PANEL Routine 11/09/2024 10:55 AM CDT Primary hypertension ALBUMIN URINE RANDOM W/CREATININE Routine 11/09/2024 10:55 AM CDT Primary hypertension HEPATITIS C ANTIBODY Routine 11/09/2024 10:55 AM CDT Encounter for hepatitis C screening test for low risk patient CT GENERIC 10/19/2024 URINALYSIS, AUTO, COMPLETE Routine 09/08/2024 1:41 PM CDT Nocturia from Last 3 Months Results * ALBUMIN URINE RANDOM W/CREATININE (11/09/2024 10:55 AM CDT) MICROALBUMIN (U) 3.9 <20 MG/L 11/11/19 11:49 AM CDT [facility] CREATININE RANDOM (U) 25.6 MG/DL 11/10/2024 11:49 AM CDT [facility] ALBUMIN/CREAT RATIO 15.2 <30 MG/G 11/10/2024 11:49 AM CDT [facility] URINE SPECIMEN / Unknown 11/09/2024 10:55 AM CDT Stefany Shelton DO URINE ORDERABLES Final Result [facility] [address] [place] [address], * (ABNORMAL) COMPREHENSIVE METABOLIC PANEL (11/09/2024 10:55 AM CDT) Pathologist [facility] SODIUM S/P/B 142 136 - 145 MMOL/L 11/10/2024 11:26 AM CDT [facility] POTASSIUM S/P/B 4.4 3.5 - 5.1 MMOL/L 11/10/2024 11:26 AM CDT [facility] CHLORIDE S/P/B 104 98 - 107 MMOL/L 11/10/2024 11:26 AM CDT [facility] CO2 25.4 21 - 32 MMOL/L 11/10/2024 11:26 AM CDT [facility] GLUCOSE 87 70 - 99 MG/DL 11/10/2024 11:26 AM CDT [facility] BUN 21(H) 7 - 18 MG/DL 11/10/2024 11:26 AM CDT [facility] CREATININE S/P/B 0.86 0.55 - 1.02 MG/DL 11/10/2024 11:26 AM T [facility] CALCIUM S/P/B 9.8 8.4 - 10.5 MG/DL 11/10/2024 11:26 AM T [facility] BILIRUBIN TOTAL S/P/B 0.3 0.2 - 1.0 MG/DL 11/10/2024 11:26 AM T [facility] ALKALINE PHOSPHATASE S/P/B 49(L) 55 - 142 U/L 11/10/2024 11:26 AM CDT [facility] AST 29 15 - 37 U/L 11/10/2024 11:26 AM T [facility] ALT 42 14 - 59 U/L 11/10/2024 11:26 AM T [facility] TOTAL PROTEIN S/P/B 7.6 6.4 - 8.2 G/DL 11/10/2024 11:26 AM T [facility] ALBUMIN S/P/B 3.8 3.4 - 5.0 G/DL 11/10/2024 11:26 AM [facility] ANION GAP 12.6 5 - 15 MMOL/L 11/10/2024 11:26 AM T [facility] Comment:REFERENCE RANGE NOT ESTABLISHED OSMOLALITY (CALC) 296 MOSM/KG 025 11:26 AM T [facility] Comment:REFERENCE RANGE NOT ESTABLISHED GFR ESTIMATE 71(L) >90 ML/MIN/1. 73 M2 11/10/2024 11:26 AM T [facility] GFR NOTES GFR REFERENCE S: 11/10/2024 11:26 AM [facility] Comment: THE ESTIMATED GFR IS CALCULATED USING THE 2020 CKD-EPI EQUATION. THE FOLLOWING CATEGORIES FOR GRADING RENAL FUNCTION ARE RECOMMENDED BY THE INTERNATIONAL SOCIETY OF NEPHROLOGY (KDIGO 2012 CLINICAL PRACTICE GUIDELINE). G1,NORMAL OR HIGH: >89 ml/min/1.73 m2 G2,MILDLY DECREASED: 60-89 ml/min/1.73 m2 G3A,MILDLY TO MODERATELY DECREASED: 45-59 ml/min/1.73 m2 G3B,MODERATELY TO SEVERELY DECREASED: 30-44 ml/min/1.73 m2 G4,SEVERELY DECREASED: 15-29 ml/min/1.73 m2 G5,KIDNEY FAILURE: <15 ml/min/1.73 m2 11/09/2024 10:5 5 AM CDT Stefany Giovanny Nikita LABORATORY Final Result Performing Organization Address [facility] Co de Phone Number [facility] [address] [place] [address], * HEPATITIS C ANTIBODY (11/09/2024 10:55 AM CDT) Pathologist [facility] HEPATITIS C AB NON-REACTI VE NON-REACT FABBY 11/10/2024 8:16 PM CDT [facility] Comment: ANTIBODIES TO HCV NOT DETECTED. DOES NOT EXCLUDE THE POSSIBILITY OF EXPOSURE TO HCV. 11/09/2024 10:5 5 AM CDT Stefany Shelton DO LABORATORY Final Result Performing Organization Address [facility] Co de Phone Number [facility] [address] [place] [address], [id number] * CT GENERIC (10/19/2024) Anatomical Region Laterality Modality Other 10/19/2024 [facility] Scanned SCANNING Final Resu lt * (ABNORMAL) URINALYSIS (09/08/2024 1:41 PM CDT) COLOR (U) YELLOW 09/08/2024 7:40 PM CDT [facility] TRANSPARENCY CLEAR CLEAR 09/08/2024 7:40 PM CDT [facility] SPECIFIC GRAVITY (U) <1.005 1.003 - 1.040 09/08/2024 7:40 PM T [facility] U PH 6.0 5.0 - 9.0 09/08/2024 7:40 PM CDT [facility] PROTEIN RANDOM (U) NEGATIVE NEGATIVE 09/08/2024 7:40 PM CDT [facility] GLUCOSE (U) NEGATIVE NEGATIVE 09/08/2024 7:40 PM CDT [facility] KETONES MG/DL (U) NEGATIVE NEGATIVE 09/08/2024 7:40 PM CDT [facility] BILIRUBIN (U) NEGATIVE NEGATIVE 09/08/2024 7:40 PM CDT [facility] BLOOD (U) TRACE(A) NEGATIVE 09/08/2024 7:40 PM CDT [facility] UROBILINOGEN 0.2 0.0 - 2.0 EU/DL 09/08/2024 7:40 PM CDT [facility] NITRITES NEGATIVE NEGATIVE 09/08/2024 7:40 PM CDT [facility] LEUKOCYTES (U) NEGATIVE NEGATIVE 09/08/2024 7:40 PM CDT [facility] RBC/HPF 0-3 0 - 3 /HPF 09/08/2024 7:40 PM T [facility] WBC/HPF 0-3 0 - 3 /HPF 09/08/2024 7:40 PM CDT [facility] EPI/HPF 0-3 /HPF 09/08/2024 7:40 PM CDT [facility] BACTERIA (U) NONE SEEN NONE SEEN 09/08/2024 7:40 PM CDT [facility] URINE SPECIMEN FROM URETHRA / Unknown 09/08/2024 1:41 PM CDT Stefany Shelton DO URINE ORDERABLES Final Result [facility] [address] [place] [address], from Last 3 Months Insurance MEDICARE PART A MEDICAID Care Teams [employer] Relationship Specialty Start Date End Date Stefany Shelton DO [address] [place] [address] PCP - General FAMILY PRACTICE 04/20/24 12/22/24
--- OUTSIDE RECORDS SUMMARY | 2024-11-22 11:57 | XMS_ITS | Clinical Summary ---
Author Organization [facility] Address [address] [place] [address] Care Team Providers Care Matrix Worker Name Role Phone Unavailable Primary Care Provider Unavailabl e Source Comments [facility],non-owned Affiliates and Associated Physician Practices is amultiple site organization consisting of ambulatory clinics and hospital sitesin [place], [place], [place] and [place]. This disclosure is being madepursuant to the Care Everywhere program and may not contain all information available regarding this patient. Last updated 18.[facility] [employer] Allergies Active Allergy Reactions Criticality Noted Date [...] 08/29/2020, 08/28/2020, Additional history exists COVID-19 VACCINE (1 - 2023- season) 2023 DEPRESSION SCREENING 04/29/2024 INFLUENZA VACCINE (#1) 2024 Respiratory Syncytial Virus (RSV) Vaccine Pt: [...] COMPREHENSIVE METABOLIC PANEL (08/30/2020 3:43 AM CDT) [facility] BUN 20 7 - 26 mg/dL 08/30/2020 4:19 AM [facility] Creatinine 1.0 0.6 - 1.2 mg/dL 08/30/2020 4:19 AM [facility] Sodium 142 136 - 145 mmol/L 08/30/2020 4:19 AM [facility] Potassium 4.0 3.5 - 4.5 mmol/L 08/30/2020 4:19 AM [facility] Comment: Hemolysis detected in this specimen. [...] 98 - 107 mmol/L 08/30/2020 4:19 AM [facility] CO2 19(L) 22 - 29 mmol/L 08/30/2020 4:19 AM [facility] Glucose 114 70 - 115 mg/dL 08/30/2020 4:19 AM [facility] Calcium 9.4 8.4 - 10.2 mg/dL 08/30/2020 4:19 AM [facility] Protein Total 8.0 6.0 - 8.3 g/dL 08/30/2020 4:19 AM [facility] Comment:Hemolysis detected i n this specimen. Hemolysis is known to cause elevations in this analyte. Caution should be exercised in the interpretation of this result. Recommend repeat testing if clinically indicated. Albumin 4.2 3.4 - 5.0 g/dL 08/30/2020 4:19 AM [facility] Bilirubin Total 0.4 0.2 - 1.2 mg/dL 08/30/2020 4:19 AM [facility] Alkaline Phosphatase 49 40 - 150 Units/L 08/30/2020 4:19 AM [facility] ALT 33 0 - 55 Units/L 08/30/2020 4:19 AM [facility] AST 34 5 - 34 Units/L 08/30/2020 4:19 AM [facility] Comment: Hemolysis detected in this specimen. [...] 19(H) 8 - 18 08/30/2020 4:19 AM [facility] BUN/Creatinine Ratio 20 7 - 23 08/30/2020 4:19 AM [facility] Osmolality Calculated 297 270 - 300 mOsm/kg 08/30/2020 4:19 AM [facility] Albumin/Globulin Ratio 1.1 1.1 - 2.3 08/30/2020 4:19 AM [facility] eGFR 55(L) >60 mL/min/1. 73 m2 08/30/2020 4:19 AM [facility] Blood BLOOD SPECIMEN / Unknown Venipuncture / Unknown 08/30/2020 3:43 AM CDT 08/30/2020 3:49 AM CDT us Ben Hooper MD LAB - CHEMISTRY ORDERABLES Griselda johnson Result [facility] [address] [place] [address], [place] [phone] * (ABNORMAL) LIPID PROFILE (08/29/2020 6:11 PM CDT) Cholesterol Total 196 <200 mg/dL 08/29/2020 6:44 PM T [facility] HDL 63 >40 mg/dL 08/29/2020 6:44 PM T [facility] Comment: ATP III Classification of HDL Cholesterol: <40 mg/dL: Considered a major risk factor. >60 mg/dL: Considered a negative risk factor. LDL Calculated 123(H) <100 mg/dL 08/29/2020 6:44 PM T [facility] Comment: ATP III Classification of LDL Cholesterol: <100 mg/dL: Optimal 100 - 129 mg/dL: Near Optimal/Above Optimal 130 - 159 mg/dL: Borderline High 160 - 189 mg/dL: High >190 mg/dL: Very High Triglycerides 50 <150 mg/dL 08/29/2020 6:44 PM T [facility] Comment: ATP III Classification of Triglycerides: <150 mg/dL: Normal 150 - 199 mg/dL: Borderline High 200 - 400 mg/dL: High >500 mg/dL: Very High Blood BLOOD SPECIMEN / Unknown Venipuncture / Unknown 08/29/2020 6:11 PM CDT 08/29/2020 6:16 PM CDT us Ben Hooper MD LAB - CHEMISTRY ORDERABLES Griselda johnson Result [facility] [address] [place] [address], [facility] [phone] from Last 3 Months or Most Recently Relevant to Health Maintenance Insurance MEDICARE Advance Directives * Full Code (Latest Code Status on File) Date Activated Date Inactivated Comments 08/29/2020 8:39 AM 08/30/2020 7:27 PM
--- OUTSIDE RECORDS SUMMARY | 2024-11-22 11:57 | XMS_ITS | Encounter Summary ---
Author Organization [facility] Health Address [address] [place] [address] Care Team Providers Care Guide Excursion Name Role Phone Unavailable Primary Care Provider Unavailabl e Encounter Details Date Type Department Care Team (Late st Contact Info) Description 08/30/2020 Ophth Exam [facility] [address] [place] [address] Carlota Barrow MD No info available Social [...]
--- OUTSIDE RECORDS SUMMARY | 2024-11-22 11:57 | XMS_ITS | Encounter Summary ---
Author Organization [facility] Health Address [address] [place] [address] Care Team Providers Care Phys Therapist Name Role Phone Unavailable Primary Care Provider Unavailabl e Encounter Details Date Type Department Care Team (Late st Contact Info) Description 08/29/2020 Ophth Exam [facility] [address], [place] [address] Keeley Feng MD [address] [facility] [address] [facility] [address] [place] [address] Social History Tobacco Use Types [...]
--- OUTSIDE RECORDS SUMMARY | 2024-11-22 11:57 | XMS_ITS | Encounter Summary ---
Author Organization [facility] Health Address [address] [place] [address] Care Team Providers Care Taxi Servicer Name Role Phone Unavailable Primary Care Provider Unavailabl e Encounter Details Date Type Department Care Team (Late st Contact Info) Description 08/28/2020 Ophth Exam [facility] [address] [place] [phone] Tuan Law MD [address] [place] [address] [place] [address] Social History Tobacco Use Types Packs/Day Years [...]
[2024-11-22 12:11] VITALS: BP 153/103; PULSE 109; RESP 16; TEMP 36.3; O2SAT 98
--- OUTSIDE RECORDS SUMMARY | 2024-11-22 14:18 | XMS_ITS | Clinical Summary ---
Author Organization [facility] Address [address] [place] [address] Care Team Providers Care Congregational Care Pastor Name Role Phone Stefany Shelton DO Primary Care Provider [phone] Allergies Active Allergy Reactions Criticality Noted Date [...] for 01/19/2025 for patient to complete at [facility]. Need for shingles vaccine 10/05/2024 Overview (10/05/2024): 10/05/2024: Patient is never previously had shingles vaccine. She reports having chickenpox as a child Assessment & Plan (10/05/2024 4:56 PM CDT): Recommend 2 dose shingles vaccine series. Patient was counseled regarding the recommendation and she is agreeable to receive. Have sent Shingrix first dose to patient's local [facility]. She was given [facility] VIS to review. Colon cancer screening 10/05/2024 [...] of pharmacy that delivers medication straight to [facility]. Left hip pain 05/25/2024 Overview (05/25/2024): 05/25/2024: Left hip pain likely related to unfixed fracture of left hip. She reports she takes Tylenol. See under acetaminophen abuse. Assessment & Plan (05/25/2024 5:27 PM [facility]): In order to avoid or try to avoid systemic complications from NSAIDs in the setting of chronic kidney disease, I would like patient to try topical Voltaren gel 2 g up to 4 times daily to her left hip as this is the primary cause of pain she experiences. Her son reports they will purchase this [id number]. Cigarette nicotine dependenc e with other nicotine-induced [...] and her sons are agreeable. Ordered to [facility]. Assessment & Plan (09/07/2024 5:21 PM CDT): Discussed with patient that we could start medication such as Chantix. She is counseled on side effects of this medication. She was sent in starter pack to [facility] pharmacy. She is counseled to stop smoking 14 days after starting Chantix prescription. Assessment & Plan (05/25/2024 5:22 PM [facility]): She is counseled to work on smoking cessation as she cannot have surgery on left hip without smoking cessation. Assessment & Plan (04/20/2024 12:22 PM [facility]): Patient counseled at length on smoking cessation [...] needed. Assessment & Plan (04/20/2024 12:20 PM [facility]): She is counseled to not take more [...] in her left hip and went to [facility] and participated twice in physical [...] minutes. Assessment & Plan (05/25/2024 5:23 PM [facility]): Counseled again to not take more than 4000 mg of acetaminophen/Tylenol in 24- hour period. Assessment & Plan (04/20/2024 12:28 PM [facility]): She is counseled to not take more [...] testing ordered for early July 2024 at [facility] Assessment & Plan (05/25/2024 5:25 PM [facility]): Counseled patient that I suspect at this [...] hypertension. Assessment & Plan (04/21/2024 10:27 AM [facility]): Suspect CKD especially in the setting of [...] obstructive pulmonar y disease, unspecified COPD type ([facility]) 04/20/2024 Overview (04/20/2024): Initial visit 04/20/2024: Patient denies previous history of COPD. She reports she does have a productive cough regularly. Assessment & Plan (04/20/2024 12:46 PM [facility]): Suspect patient has COPD due to longstanding [...] per chart review of bilateral fundus at [facility] by Tuan Law MD. 09/07/2024: She reports she went to [facility]. She reports she was told the back of her eye has some damage. She was told to return in February 20. Assessment & Plan (09/07/2024 5:27 PM CDT): Requesting records from [facility] [place] Primary hypertension 08/29/2020 Overview (11/09/2024): Regimen: Olmesartan [...] office. Refill olmesartan 40 mg daily. [facility] last refill was for olmesartan 20 [...] 2024. Assessment & Plan (05/25/2024 5:21 PM [facility]): Blood pressure is elevated in office today. Like to increase olmesartan to 40 mg daily as patient's blood pressure is elevated and she has moderately increased microalbumin to creatinine ratio. She is instructed to use blood pressure measuring device to take measurements daily and bring in log and device at next appointment in 2 weeks. Assessment & Plan (04/20/2024 12:46 PM [facility]): Blood pressure is significantly elevated today in [...] Will give Prevnar 20. She was given [facility] VIS to review. Counseled on vaccine side [...] Department Care Team Description 11/11/2024 Results Follow-Up [facility] - [place] [address] [place] [id number] Stefany Shelton DO HEPATITIS C ANTIBODY, ALBUMIN URINE RANDOM W/CREATININE, COMPREHENSIVE METABOLIC PANEL 11/09/2024 10:00 AM CDT Office Visit [facility] [place] [address] [place] [address] Stefany Shelton DO Hypertension (4 week f/u) 11/09/2024 Scan [facility] Scanned, [facility] 11/09/2024 - 11/09/2024 11:59 PM CDT Hospital Encounter [facility] [address] Stefany Shelton DO Discharge Disposition: Home or Self Care (Routine Discharge) 11/09/2024 Travel 11/03/2024 Scan [facility] Scanned, [facility] 11/03/2024 [facility] [address] [address] [place] [address] Stefany Shelton, DO Information 10/27/2024 Scan [facility] Scanned, [facility] 10/19/2024 Scan [facility] Scanned, [facility] CT (SCAN) 10/08/2024 Scan [facility] Scanned, [facility] 10/06/2024 Telephone [place] [address] [facility] [address] [place] [address] Stefany Shelton, DO Follow Up Call 10/05/2024 4:00 PM CDT Office Visit [place] [address] [facility] [address] [place] [address] Stefany Shelton, DO Hypertension (4 week follow [...] SRVCS Scanned, [facility] 09/28/2024 Telephone [facility] [address] [place] [address] Stefany Shelton, DO Follow Up Call 09/10/2024 Results Follow-Up [place] [address] [facility] [address] [place] [address] Stefany Shelton, DO URINALYSIS 09/07/2024 3:40 PM CDT Office Visit [place] [address] [facility] [address] [place] [address] Stefany Shelton, DO Hip Pain (Left hip./2 [...] PM CDT Legal Sex Female 8:12 AM [facility] Gender Identity Female 09/07/2024 3:37 PM CDT [...] Description 02/01/2025 10:20 AM CDT Office Visit [facility] - [place] [address] [place] [address] Ees Simms NP [address] [place] [address] Health Maintenance Due Date Last Done Comments Colorectal Cancer Screening Colonoscopy (10 Years) 1950 Mammogram Screening 1990 Lung Cancer Screening 02/29/2000 Zoster Vaccines (1 of 2) 02/29/2000 RSV Immunization or 60+ Years (1 - Risk 60-74 years 1-dose series) 2010 Dexa Scan (General) 2015 PHQ-2 (Physician [place]) 04/29/2024 COVID-19 Vaccine (3 - 2023-2 5 [...] 3.9 <20 MG/L 11/11/19 11:49 AM CDT [facility] CREATININE RANDOM (U) 25.6 MG/DL 11/10/2024 11:49 AM CDT [facility] ALBUMIN/CREAT RATIO 15.2 <30 MG/G 11/10/2024 11:49 AM CDT [facility] URINE SPECIMEN / Unknown 11/09/2024 10:55 AM CDT Stefany Shelton DO URINE ORDERABLES Final Result [facility] [address] [place] [address], * (ABNORMAL) COMPREHENSIVE METABOLIC PANEL (11/09/2024 10:55 AM CDT) Pathologist [facility] SODIUM S/P/B 142 136 - 145 MMOL/L 11/10/2024 11:26 AM CDT [facility] POTASSIUM S/P/B 4.4 3.5 - 5.1 MMOL/L 11/10/2024 11:26 AM CDT [facility] CHLORIDE S/P/B 104 98 - 107 MMOL/L 11/10/2024 11:26 AM CDT [facility] CO2 25.4 21 - 32 MMOL/L 11/10/2024 11:26 AM CDT [facility] GLUCOSE 87 70 - 99 MG/DL 11/10/2024 11:26 AM CDT [facility] BUN 21(H) 7 - 18 MG/DL 11/10/2024 11:26 AM CDT [facility] CREATININE S/P/B 0.86 0.55 - 1.02 MG/DL 11/10/2024 11:26 AM T [facility] CALCIUM S/P/B 9.8 8.4 - 10.5 MG/DL 11/10/2024 11:26 AM T [facility] BILIRUBIN TOTAL S/P/B 0.3 0.2 - 1.0 MG/DL 11/10/2024 11:26 AM T [facility] ALKALINE PHOSPHATASE S/P/B 49(L) 55 - 142 U/L 11/10/2024 11:26 AM CDT [facility] AST 29 15 - 37 U/L 11/10/2024 11:26 AM T [facility] ALT 42 14 - 59 U/L 11/10/2024 11:26 AM T [facility] TOTAL PROTEIN S/P/B 7.6 6.4 - 8.2 G/DL 11/10/2024 11:26 AM T [facility] ALBUMIN S/P/B 3.8 3.4 - 5.0 G/DL 11/10/2024 11:26 AM [facility] ANION GAP 12.6 5 - 15 MMOL/L 11/10/2024 11:26 AM T [facility] Comment:REFERENCE RANGE NOT ESTABLISHED OSMOLALITY (CALC) 296 MOSM/KG 025 11:26 AM T [facility] Comment:REFERENCE RANGE NOT ESTABLISHED GFR ESTIMATE 71(L) >90 ML/MIN/1. 73 M2 11/10/2024 11:26 AM T [facility] GFR NOTES GFR REFERENCE S: 11/10/2024 11:26 AM [facility] Comment: THE ESTIMATED GFR IS CALCULATED USING [...] Nikita LABORATORY Final Result Performing Organization Address [facility] [[email or web address]] Co de Phone Number [facility] [address] [place] [address], * HEPATITIS C ANTIBODY (11/09/2024 10:55 AM CDT) Pathologist [facility] HEPATITIS C AB NON-REACTI VE NON-REACT FABBY 11/10/2024 8:16 PM CDT [facility] Comment: ANTIBODIES TO HCV NOT DETECTED. DOES NOT EXCLUDE THE POSSIBILITY OF EXPOSURE TO HCV. 11/09/2024 10:5 5 AM CDT Stefany Shelton DO LABORATORY Final Result Performing Organization Address [facility] [[email or web address]] Co de Phone Number [facility] [address] [place] [address], [id number] * CT GENERIC (10/19/2024) Anatomical Region Laterality Modality Other 10/19/2024 [facility] Scanned SCANNING Final Resu lt * (ABNORMAL) URINALYSIS (09/08/2024 1:41 PM CDT) COLOR (U) YELLOW 09/08/2024 7:40 PM CDT [facility] TRANSPARENCY CLEAR CLEAR 09/08/2024 7:40 PM CDT [facility] SPECIFIC GRAVITY (U) <1.005 1.003 - 1.040 09/08/2024 7:40 PM T [facility] U PH 6.0 5.0 - 9.0 09/08/2024 7:40 PM CDT [facility] PROTEIN RANDOM (U) NEGATIVE NEGATIVE 09/08/2024 7:40 PM CDT [facility] GLUCOSE (U) NEGATIVE NEGATIVE 09/08/2024 7:40 PM CDT [facility] KETONES MG/DL (U) NEGATIVE NEGATIVE 09/08/2024 7:40 PM CDT [facility] BILIRUBIN (U) NEGATIVE NEGATIVE 09/08/2024 7:40 PM CDT [facility] BLOOD (U) TRACE(A) NEGATIVE 09/08/2024 7:40 PM CDT [facility] UROBILINOGEN 0.2 0.0 - 2.0 EU/DL 09/08/2024 7:40 PM CDT [facility] NITRITES NEGATIVE NEGATIVE 09/08/2024 7:40 PM CDT [facility] LEUKOCYTES (U) NEGATIVE NEGATIVE 09/08/2024 7:40 PM CDT [facility] RBC/HPF 0-3 0 - 3 /HPF 09/08/2024 7:40 PM T [facility] WBC/HPF 0-3 0 - 3 /HPF 09/08/2024 7:40 PM CDT [facility] EPI/HPF 0-3 /HPF 09/08/2024 7:40 PM CDT [facility] BACTERIA (U) NONE SEEN NONE SEEN 09/08/2024 7:40 PM CDT [facility] URINE SPECIMEN FROM [facility] / Unknown 09/08/2024 1:41 PM CDT Stefany Shelton DO URINE ORDERABLES Final Result [facility] [address] [place] [address], from Last 3 Months Insurance MEDICARE PART A MEDICAID Care Teams Congregational Care Pastor Relationship Specialty Start Date End Date Stefany Shelton DO [address] [place] [address] PCP - General FAMILY PRACTICE 04/20/24 12/22/24
--- OUTSIDE RECORDS SUMMARY | 2024-11-22 14:18 | XMS_ITS | Clinical Summary ---
Author Organization [facility] Address [address] [place] [address] Care Team Providers Care Oxyacetylene Cutter Name Role Phone Unavailable Primary Care Provider Unavailabl e Source Comments [facility],non-owned Affiliates and Associated Physician Practices is amultiple site organization consisting of ambulatory clinics and hospital sitesin [place], [place], [place] and [place]. This disclosure is being madepursuant to the Care Everywhere program and may not contain all information available regarding this patient. Last updated 18.[facility] Schedule Savvy Allergies Active Allergy Reactions Criticality Noted Date [...] COMPREHENSIVE METABOLIC PANEL (08/30/2020 3:43 AM CDT) [facility] BUN 20 7 - 26 mg/dL 08/30/2020 4:19 AM [facility] Creatinine 1.0 0.6 - 1.2 mg/dL 08/30/2020 4:19 AM [facility] Sodium 142 136 - 145 mmol/L 08/30/2020 4:19 AM [facility] Potassium 4.0 3.5 - 4.5 mmol/L 08/30/2020 4:19 AM [facility] Comment: Hemolysis detected in this specimen. Hemolysis [...] 98 - 107 mmol/L 08/30/2020 4:19 AM [facility] CO2 19(L) 22 - 29 mmol/L 08/30/2020 4:19 AM [facility] Glucose 114 70 - 115 mg/dL 08/30/2020 4:19 AM [facility] Calcium 9.4 8.4 - 10.2 mg/dL 08/30/2020 4:19 AM [facility] Protein Total 8.0 6.0 - 8.3 g/dL 08/30/2020 4:19 AM [facility] Comment:Hemolysis detected i n this specimen. Hemolysis is known to cause elevations in this analyte. Caution should be exercised in the interpretation of this result. Recommend repeat testing if clinically indicated. Albumin 4.2 3.4 - 5.0 g/dL 08/30/2020 4:19 AM [facility] Bilirubin Total 0.4 0.2 - 1.2 mg/dL 08/30/2020 4:19 AM [facility] Alkaline Phosphatase 49 40 - 150 Units/L 08/30/2020 4:19 AM [facility] ALT 33 0 - 55 Units/L 08/30/2020 4:19 AM [facility] AST 34 5 - 34 Units/L 08/30/2020 4:19 AM [facility] Comment: Hemolysis detected in this specimen. Hemolysis [...] 19(H) 8 - 18 08/30/2020 4:19 AM [facility] BUN/Creatinine Ratio 20 7 - 23 08/30/2020 4:19 AM [facility] Osmolality Calculated 297 270 - 300 mOsm/kg 08/30/2020 4:19 AM [facility] Albumin/Globulin Ratio 1.1 1.1 - 2.3 08/30/2020 4:19 AM [facility] eGFR 55(L) >60 mL/min/1. 73 m2 08/30/2020 4:19 AM [facility] Blood BLOOD SPECIMEN / Unknown Venipuncture / Unknown 08/30/2020 3:43 AM CDT 08/30/2020 3:49 AM CDT us Ben Hooper MD LAB - CHEMISTRY ORDERABLES Griselda johnson Result [facility] [address] [place] [address], [place] [phone] * (ABNORMAL) LIPID PROFILE (08/29/2020 6:11 PM CDT) Cholesterol Total 196 <200 mg/dL 08/29/2020 6:44 PM T [facility] HDL 63 >40 mg/dL 08/29/2020 6:44 PM T [facility] Comment: ATP III Classification of HDL Cholesterol: <40 mg/dL: Considered a major risk factor. >60 mg/dL: Considered a negative risk factor. LDL Calculated 123(H) <100 mg/dL 08/29/2020 6:44 PM T [facility] Comment: ATP III Classification of LDL Cholesterol: <100 mg/dL: Optimal 100 - 129 mg/dL: Near Optimal/Above Optimal 130 - 159 mg/dL: Borderline High 160 - 189 mg/dL: High >190 mg/dL: Very High Triglycerides 50 <150 mg/dL 08/29/2020 6:44 PM T [facility] Comment: ATP III Classification of Triglycerides: <150 mg/dL: Normal 150 - 199 mg/dL: Borderline High 200 - 400 mg/dL: High >500 mg/dL: Very High Blood BLOOD SPECIMEN / Unknown Venipuncture / Unknown 08/29/2020 6:11 PM CDT 08/29/2020 6:16 PM CDT us Ben Hooper MD LAB - CHEMISTRY ORDERABLES Griselda johnson Result [facility] [address] [place] [address], [facility] [phone] from Last 3 Months or Most Recently Relevant to Health Maintenance Insurance MEDICARE Advance Directives * Full Code (Latest Code Status on File) Date Activated Date Inactivated Comments 08/29/2020 8:39 AM 08/30/2020 7:27 PM
--- OUTSIDE RECORDS SUMMARY | 2024-11-22 14:18 | XMS_ITS | Encounter Summary ---
Author Organization [facility] Address [address] [place] [address] Care Team Providers Care Plumber Maintenance Name Role Phone Unavailable Primary Care Provider Unavailabl e Encounter Details Date Type Department Care Team (Late st Contact Info) Description 08/30/2020 Ophth Exam [facility] [address] [place] [address] Carlota Barrow MD No info available Social [...]
--- OUTSIDE RECORDS SUMMARY | 2024-11-22 14:18 | XMS_ITS | Encounter Summary ---
Author Organization [facility] Address [address] [place] [address] Care Team Providers Care Refining Supervisor Name Role Phone Unavailable Primary Care Provider Unavailabl e Encounter Details Date Type Department Care Team (Late st Contact Info) Description 08/29/2020 Ophth Exam [facility] [address] [facility], [place] [address] Keeley Feng MD [address] [place] [address] Social History Tobacco Use Types [...]
--- OUTSIDE RECORDS SUMMARY | 2024-11-22 14:18 | XMS_ITS | Encounter Summary ---
Author Organization [facility] Address [address] [place] [address] Care Team Providers Care Advisory Services Associate Name Role Phone Unavailable Primary Care Provider Unavailabl e Encounter Details Date Type Department Care Team (Late st Contact Info) Description 08/28/2020 Ophth Exam [facility] [address] [place] [phone] Tuan Law MD [address] [place] [address] [place] [address] Social History Tobacco Use Types Packs/Day Years [...]
--- NOTE | 2024-11-22 14:24 | ED.NAVMDI ---
HPI - Nausea/Vomiting/Diarrhea General Chief complaint: Nausea/Vomiting/Diarrhea Stated complaint: n/v Time Seen by Provider: 11/22/24 14:11 Source: patient Mode of arrival: ambulatory Limitations: no limitations History of Present Illness HPI Narrative: This is a 74-year-old female that presents to emergency department for nausea and vomiting. Ongoing intermittently over the last couple of days. Reports she has not been able to keep much down today. Denies fevers, diarrhea, and dysuria. Related Data Allergies Allergy/AdvReac Type Severity Reaction Status Date / Time tramadol AdvReac Intermediate Nausea Verified 09/21/24 11:48 codeine AdvReac Nausea and Verified 09/21/24 11:48 Vomiting Review of Systems Review of Systems: All systems reviewed & are unremarkable except as noted in HPI and below PMFSH Past Medical History Medical History Hypertension Tobacco dependence Subcapital fracture of left hip (06/2022) Surgical History Surgical History History of open reduction and internal fixation (ORIF) procedure Repair left subcapital hip fracture. Family History Family History Other Heart disease Hypertension Social History Social History Social History: Surrogate medical decision maker: Miguel Hines, son. Code status: Full code. Smoking packs per day: 1 Smoking cigarettes per day: 20.0 Years smoked: 43 Smoking pack-years: 43.00 Smoking status: Former smoker Tobacco type: cigarettes Smoking end date: 04/01/23 Additional smoking assessment comments: DENIES ANY FORM OF TOBACCO USE Alcohol intake: never Substance use: never Substance use type: does not use Do You Feel Safe in your Home?: Yes Lack of Transportation: No Lack of Food: Never True Current Housing: I Have Housing Concerned About Future Housing: No Difficulty Paying Gas/Electric Bills: No Difficulty Paying for Meds: No Currently Unemployed: YES Education: High School Diploma/GED Difficulty w/ Childcare or Family Care: No Living arrangements: with family Additional living arrangements comments: Lives in [place] with son. Occupation/Education: retired Additional occupation/education comments: Retired. Spiritual care concerns: No Exam Narrative: GENERAL: Well-appearing, well-nourished, and in no acute distress. HEAD: Normocephalic, atraumatic. EYES: EOMI. ENT: Nares clear, no rhinorrhea or epistaxis. Mucous membranes moist. CHEST: Clear to auscultation. No respiratory distress. No wheezes rales or rhonchi HEART: Regular rate and rhythm. No murmur heard. Normal peripheral pulses. ABDOMEN: Soft, nondistended, normal active bowel sounds. Mild tenderness to palpation in the epigastrium, without guarding EXTREMITIES: Normal range of motion. No edema. SKIN: Warm, dry, no rash. NEURO: No focal deficits. Alert and oriented x3. PSYCH: Normal mood and affect Course Course Emergency Course: Patient was updated on her workup. Reports feeling much better. Resting comfortably Vital Signs Vital signs: Vital Signs Temperature 97.4 F L 11/22/24 12:11 Pulse Rate 109 H 11/22/24 12:11 Respiratory Rate 16 11/22/24 12:11 Blood Pressure 153/103 H 11/22/24 12:11 Pulse Oximetry 98 11/22/24 12:11 Oxygen Delivery Room Air 11/22/24 12:11 Temperature 97.9 F 11/22/24 14:43 Pulse Rate 85 11/22/24 14:43 Respiratory Rate 16 11/22/24 14:43 Blood Pressure 152/81 H 11/22/24 14:43 Pulse Oximetry 100 11/22/24 14:43 Oxygen Delivery Room Air 11/22/24 14:43 MDM - Nausea/Vomiting/Diarrhea MDM Narrative Medical decision making narrative: Patient presents the emergency department for nausea and vomiting. Ongoing intermittently over the last couple of days. She is afebrile and nontoxic appearing. Tachycardic upon arrival, this normalized with IV fluids. Cbc without leukocytosis. Metabolic panel with transaminitis, which appears chronic. Lipase is normal. Urine with bacteria and red blood cells. No white blood cells. This will be sent for culture. CT abdomen pelvis shows small pericardial effusion. Common bile duct dilation without surrounding inflammatory changes. Total bilirubin is normal. Mild esophagitis/gastritis. Left renal vein varix. Moderate bladder wall edema as can be seen with cystitis. Chronic nonunited left femoral neck fracture. Patient was updated on her workup and agrees with plan of care. She is to follow up with primary doctor and Orthopedics. She was given warnings to return to the ER Differential Diagnosis Differential diagnosis: Likely food poisoning, gastroenteritis, dehydration and other (UTI, electrolyte derangement, dehydration) Lab Data Attestation: I reviewed the patient's lab results. 11/22/24 14:18 11/22/24 14:18 Labs: Lab Results 11/22/24 11/22/24 Range/Units 14:16 14:18 WBC 8.9 (4.5-10.0) K/mm3 RBC 4.83 (4.2-5.4) M/mm3 Hgb 14.8 (12.0-15.0) g/dL Hct 44.4 (37.0-47.0) % MCV 91.9 (80-100) fl MCH 30.6 (26-34) pg MCHC 33.3 (32-36) g/dl RDW 12.8 (11.5-14.5) % Plt Count 324 (150-375) k/mm3 MPV 9.2 (7.4-10.4) fl Immature Gran % (Auto) 0.3 (0-0.5) % Neut % (Auto) 69.9 (45.5-73.1) % Lymph % (Auto) 20.1 (18.3-44.2) % [place] % (Auto) 9.2 H (2.6-8.5) % Eos % (Auto) 0.1 (0-4.4) % Baso % (Auto) 0.4 (0.2-1.2) % Lymph # (Auto) 1.79 (0.9-3.2) K/mm3 [place]idan # (Auto) 0.8 H (0.1-0.6) K/mm3 Eos # (Auto) 0.0 (0-0.3) K/mm3 Baso # (Auto) 0.0 (0.0-0.1) K/mm3 Abs Immat Gran (auto) 0.03 (0.00-0.031) K/mm3 Absolute Neuts (auto) 6.2 (1.3-6.7) K/mm3 Absolute Nucleated RBC 0.000 (0.0-0.012) K/mm3 Nucleated RBC % 0.0 (0.0-0.2) % Sodium 138 (137-145) mmol/L Potassium 3.7 (3.4-5.0) mmol/L Chloride 103 (98-107) mmol/L Carbon Dioxide 22 (22-30) mmol/L Anion Gap 13 H (4-12) mmol/L BUN 15 (7-17) mg/dL Creatinine 0.85 (0.7-1.0) mg/dL Estim Creat Clear Calc 50 ml/min Estimated GFR > 60 (59 - ) Glucose 118 H (65-110) mg/dL Calcium 9.6 (8.4-10.2) mg/dL Total Bilirubin 0.7 (0.2-1.3) mg/dL AST 41 H (14-36) U/L ALT 36 H (6-35) U/L Alkaline Phosphatase 60 (38-126) U/L Total Protein 8.7 H (6.3-8.2) g/dL Albumin 4.5 (3.5-5.1) g/dL Lipase 107 (23-300) U/L Urine Color Yellow (Yellow) Urine Appearance Clear (Clear) Urine pH 6.5 (5.0-9.0) Ur Specific [place] 1.017 (1.001-1.035) Urine Protein 2+ H (Negative) mg/dL Urine Glucose (UA) Negative (Negative) mg/dL Urine Ketones 1+ H (Negative) mg/dL Ur Blood (Man) 2+ H (Negative) Urine Nitrate Negative (Negative) Urine Bilirubin Negative (Negative) Urine Urobilinogen 1.0 (<2.0) mg/dL Leukocyte Esterase Rfl Negative (Negative) BIBI/UL Urine RBC 51-100 H (0-2) /hpf Urine WBC 0-5 (0-3) /hpf Ur Squamous Epith Cells None seen (Few) /hpf Urine Bacteria 4+ H /hpf Urine Casts 0-2 Imaging Data Radiologist's impression: ITS Impressions Abdomen/Pelvis CT 11/22/24 15:51 IMPRESSION: Small pericardial effusion. Common bile duct dilation, without inflammatory change or obstructing stone/mass. Correlate with biliary labs. Consider MRCP. Mild esophagitis/gastritis. Left renal vein varix. Moderate bladder wall edema as can be seen with cystitis. Chronic nonunited left femoral neck fracture, with increased displacement and early femoral head collapse. Critical Care Time Critical Care Time Critical Care Time: No Discharge Plan Discharge Clinical Impression: Esophagitis, Acute UTI, Closed left hip fracture, Nausea and vomiting Patient Disposition: Home Condition: Stable Instructions: Antibiotic Form, Esophagitis (ED), Urinary Tract Infection in Older Adults (ED) Additional Instructions: Return to the ER if you experience fever, abdominal pain with nausea and vomiting, you are unable to keep down liquids or solids, blood in the stool, pain or burning with urination, blood in the urine or any other symptoms that are concerning to you Remain well hydrated. Ondansetron as needed for nausea. Take Pepcid daily. Take cephalexin as prescribed Follow up with your primary care and orthopedics doctor Patient Language: Japanese Prescriptions: New famotidine [Acid Controller] 20 mg tablet 20 mg PO DAILY 30 Days Qty: 30 0RF cephalexin 500 mg capsule 500 mg PO Q12H 5 Days Qty: 10 0RF ondansetron 4 mg tablet,disintegrating 4 mg PO Q8H PRN (Reason: nausea and vomiting) Qty: 10 0RF No Action ondansetron 4 mg tablet,disintegrating 4 mg PO Q4H PRN (Reason: nausea and vomiting) 3 Days Qty: 10 0RF clonidine HCl 0.1 mg tablet See Rx Instructions .ROUTE .COMPLEX Qty: 60 0RF Dose Instruction: TAKE 1 TABLET BY MOUTH TWICE DAILY Rx Instructions: TAKE 1 TABLET BY MOUTH TWICE DAILY lidocaine [Lidocaine Pain Relief] 4 % Adhesive Patch,Medicated 1 patch transdermal DAILY Qty: 7 0RF gabapentin [Neurontin] 300 mg Capsule 300 mg PO QHS Qty: 30 0RF ondansetron 4 mg Tablet,Disintegrating 4 mg PO Q6H Qty: 28 0RF Eliquis 2.5 mg Tablet 2.5 mg PO Q12HR Qty: 30 0RF Patient Comments: PT STATES HAS NOT STARTED YET acetaminophen 500 mg Tablet 500 mg PO Q6HR Qty: 90 0RF Follow-up/Referrals: UNKNOWN,DOCTOR [Primary Care Provider] -
[2024-11-22 14:27] LABS: Hematocrit 44.4 % (37.0-47.0); Hemoglobin 14.8 g/dL (12.0-15.0); Immature Granulocyte Percent A 0.3 % (0-0.5); Lymphocytes Absolute Auto 1.79 K/mm3 (0.9-3.2); Mean Corpuscular HGB Conc 33.3 g/dl (32-36); Mean Corpuscular Hemoglobin 30.6 pg (26-34); Mean Corpuscular Volume 91.9 fl (80-100); Nucleated Red Blood Cells Absolute Auto 0.000 K/mm3 (0.0-0.012); Nucleated Red Blood Cells Perc 0.0 % (0.0-0.2); Platelet Count Result 324 k/mm3 (150-375); Red Blood Count 4.83 M/mm3 (4.2-5.4); White Blood Count 8.9 K/mm3 (4.5-10.0)
[2024-11-22 14:30] LABS: Add Urine Microscopic? YES; Appearance Urine Clear (Clear); Glucose Urine UA Negative (Negative); Leukocyte Esterase Ur Negative LEU/UL (Negative); Nitrate Urine Negative (Negative); Non Pathogenic Casts 0-2; Specific Grav Ur 1.017 (1.001-1.035)
[2024-11-22 14:39] LABS: Alanine Aminotransferase 36 U/L (6-35); Albumin Level 4.5 g/dL (3.5-5.1); Alkaline Phosphatase 60 U/L (38-126); Anion Gap 13 mmol/L (4-12); Aspartate Amino Transferase 41 U/L (14-36); Bilirubin,Total 0.7 mg/dL (0.2-1.3); Blood Urea Nitrogen 15 mg/dL (7-17); Calcium 9.6 mg/dL (8.4-10.2); Carbon Dioxide 22 mmol/L (22-30); Chloride 103 mmol/L (98-107); Estimated CRCL calculation 50 ml/min; Estimated Glomerular Filt Rate > 60; Glucose 118 mg/dL (65-110); Lipase 107 U/L (23-300); Potassium 3.7 mmol/L (3.4-5.0); Sodium 138 mmol/L (137-145); Total Protein 8.7 g/dL (6.3-8.2)
[2024-11-22 14:43] VITALS: BP 152/81; PULSE 85; RESP 16; TEMP 36.6; O2SAT 100
[2024-11-22 15:00] VITALS: BP 145/98; PULSE 81; RESP 16; TEMP 36.6; O2SAT 98
[2024-11-22] MEDS: SODIUM CHLORIDE 0.9% IV 1,000 ML 999 ML IV CONT (15:18)
[2024-11-22] MEDS: ONDANSETRON INJ 4 MG/2 ML VIAL IV PUSH (15:19)
[2024-11-22] MEDS: FAMOTIDINE 20 MG/2 ML VIAL IV PUSH (15:19)
[2024-11-22 16:00] VITALS: BP 131/82; PULSE 68; RESP 16; TEMP 36.6; O2SAT 98
[2024-11-22 17:00] VITALS: BP 145/98; PULSE 78; RESP 16; TEMP 36.6; O2SAT 98
== END 2024-11-22 17:41 | disposition home or self-care (01) ==
PROVIDERS: Student in an Organized Health Care Education/Training Program; Emergency Provider Physician Assistant
DX: K20.90 Esophagitis, unspecified without bleeding (principal); N39.0 Urinary tract infection, site not specified; S72.002K Fracture of unspecified part of neck of left femur, subsequent encounter for closed fracture with nonunion; I10 Essential (primary) hypertension; Z87.891 Personal history of nicotine dependence; K29.70 Gastritis, unspecified, without bleeding; I86.8 Varicose veins of other specified sites; R93.41 Abnormal radiologic findings on diagnostic imaging of renal pelvis, ureter, or bladder; R93.2 Abnormal findings on diagnostic imaging of liver and biliary tract; J90 Pleural effusion, not elsewhere classified; R74.01 Elevation of levels of liver transaminase levels; X58.XXXD Exposure to other specified factors, subsequent encounter
CPT/HCPCS: 36415; 74177; 80053; 81001; 83690; 85025; 87086; 96361; 96374; 96375; 99284; J2405; J7030; Q9967

== ENCOUNTER 2025-01-25 09:30 | Outpatient (CLI) | payer MEDICARE, MEDICAID, SELFPAY ==
--- NOTE | ~2025-01-25 | CT_ITS ---
EXAMINATION:CT diagnostic chest wo con DATE: 01/25/2025 09:55 INDICATION: Nodule of lower lobe of left lung. TECHNIQUE: Computed tomography (CT) of the chest was performed without intravenous contrast. Automated exposure control and iterative reconstruction technique were employed. The dose-length product (DLP) was 71.28 mGy-cm. COMPARISON: Chest CT 10/19/2024 FINDINGS: There is mild emphysema. Calcified pulmonary nodules and calcified hilar mediastinal lymph nodes are consistent with old granulomatous disease. There are 11 mm and 6 mm nodules in left lower lobe, stable from 10/19/2024. There is no ascites. The heart size is normal. There are coronary artery calcifications. There is a trace pericardial effusion. Calcifications in the spleen are consistent with old granulomatous disease. There is mild thoracic spondylosis. IMPRESSION: 1. Lung-RADS category 3: Probably benign. Further evaluation is recommended with noncontrast low-dose chest CT in 6 months. Reviewed, dictated and finalized at location E. IMPRESSION: 1. Lung-RADS category 3: Probably benign. Further evaluation is recommended wit h noncontrast low-dose chest CT in 6 months.
--- OUTSIDE RECORDS SUMMARY | 2025-01-25 09:59 | XMS_ITS | Encounter Summary ---
Author Organization [facility] Health Address [address] [place] [address] Care Team Providers Care Visual Basic .Net Developer Name Role Phone Unavailable Primary Care Provider Unavailabl e Encounter Details Date Type Department Care Team (Late st Contact Info) Description 08/29/2020 Ophth Exam [facility] [address], [place] [address] Keeley Feng MD [address] [place] [address] Social History Tobacco Use Types [...]
--- OUTSIDE RECORDS SUMMARY | 2025-01-25 09:59 | XMS_ITS | Patient Health Record ---
Author Organization José Miguel Baltazar, [facility] Address [address] [place], [place] [id number] Care Team Providers Care Machinist Mate Name Role Phone José Miguel Craft Primary Care Provider [phone] Allergies Allergen (clinical drug ingredient) Drug/Non Drug [...] Notes Problem Closed fracture of lateral malleolus (46206589) Nondisplaced fracture of lateral malleolus of left fibula, initial encounter for closed fracture (S82.65XA) Active confirmed Problem Sprain of deltoid ligament of ankle (54631621) Sprain of deltoid ligament of left ankle, initial encounter (S93.422A) Active confirmed Plan Of Treatment No Information Insurance Providers Payer Name Payer Address Payer Phone Subscriber Number Group Number Insured Name Patient Relationship to Insured Coverage Start Date Coverage End Date [facility] [address] [place] [address] [phone] [id number] Amy Bee Self - patient is the insured
--- OUTSIDE RECORDS SUMMARY | 2025-01-25 09:59 | XMS_ITS | Clinical Summary ---
Author Organization [facility] Address [address] [place] [address] Care Team Providers Care Racetrack Steward Name Role Phone Unavailable Primary Care Provider Unavailabl e Source Comments [facility],non-owned Affiliates and Associated Physician Practices is amultiple site organization consisting of ambulatory clinics and hospital sitesin [place], [place], [place] and [place]. This disclosure is being madepursuant to the Care Everywhere program and may not contain all information available regarding this patient. Last updated 18.[facility] [employer] Allergies Active Allergy Reactions Criticality Noted Date [...] 08/31/2023 , 08/29/2020, 08/28/2020, Additional history exists DEPRESSION SCREENING 04/29/2024 COVID-19 VACCINE ( - season) 2024 INFLUENZA VACCINE (#1) 2024 Respiratory Syncytial Virus [...] COMPREHENSIVE METABOLIC PANEL (08/30/2020 3:43 AM CDT) [facility] BUN 20 7 - 26 mg/dL 08/30/2020 4:19 AM [facility] Creatinine 1.0 0.6 - 1.2 mg/dL 08/30/2020 4:19 AM [facility] Sodium 142 136 - 145 mmol/L 08/30/2020 4:19 AM [facility] Potassium 4.0 3.5 - 4.5 mmol/L 08/30/2020 4:19 AM [facility] Comment: Hemolysis detected in this specimen. [...] 98 - 107 mmol/L 08/30/2020 4:19 AM [facility] CO2 19(L) 22 - 29 mmol/L 08/30/2020 4:19 AM [facility] Glucose 114 70 - 115 mg/dL 08/30/2020 4:19 AM [facility] Calcium 9.4 8.4 - 10.2 mg/dL 08/30/2020 4:19 AM [facility] Protein Total 8.0 6.0 - 8.3 g/dL 08/30/2020 4:19 AM [facility] Comment:Hemolysis detected i n this specimen. Hemolysis is known to cause elevations in this analyte. Caution should be exercised in the interpretation of this result. Recommend repeat testing if clinically indicated. Albumin 4.2 3.4 - 5.0 g/dL 08/30/2020 4:19 AM [facility] Bilirubin Total 0.4 0.2 - 1.2 mg/dL 08/30/2020 4:19 AM [facility] Alkaline Phosphatase 49 40 - 150 Units/L 08/30/2020 4:19 AM [facility] ALT 33 0 - 55 Units/L 08/30/2020 4:19 AM [facility] AST 34 5 - 34 Units/L 08/30/2020 4:19 AM [facility] Comment: Hemolysis detected in this specimen. [...] 19(H) 8 - 18 08/30/2020 4:19 AM [facility] BUN/Creatinine Ratio 20 7 - 23 08/30/2020 4:19 AM [facility] Osmolality Calculated 297 270 - 300 mOsm/kg 08/30/2020 4:19 AM [facility] Albumin/Globulin Ratio 1.1 1.1 - 2.3 08/30/2020 4:19 AM [facility] eGFR 55(L) >60 mL/min/1. 73 m2 08/30/2020 4:19 AM [facility] Blood BLOOD SPECIMEN / Unknown Venipuncture / Unknown 08/30/2020 3:43 AM CDT 08/30/2020 3:49 AM CDT us Ben Hooper MD LAB - CHEMISTRY ORDERABLES Griselda johnson Result [facility] [address] [place] [address], [place] [phone] * (ABNORMAL) LIPID PROFILE (08/29/2020 6:11 PM CDT) Cholesterol Total 196 <200 mg/dL 08/29/2020 6:44 PM T [facility] HDL 63 >40 mg/dL 08/29/2020 6:44 PM T [facility] Comment: ATP III Classification of HDL Cholesterol: <40 mg/dL: Considered a major risk factor. >60 mg/dL: Considered a negative risk factor. LDL Calculated 123(H) <100 mg/dL 08/29/2020 6:44 PM T [facility] Comment: ATP III Classification of LDL Cholesterol: <100 mg/dL: Optimal 100 - 129 mg/dL: Near Optimal/Above Optimal 130 - 159 mg/dL: Borderline High 160 - 189 mg/dL: High >190 mg/dL: Very High Triglycerides 50 <150 mg/dL 08/29/2020 6:44 PM T [facility] Comment: ATP III Classification of Triglycerides: <150 mg/dL: Normal 150 - 199 mg/dL: Borderline High 200 - 400 mg/dL: High >500 mg/dL: Very High Blood BLOOD SPECIMEN / Unknown Venipuncture / Unknown 08/29/2020 6:11 PM CDT 08/29/2020 6:16 PM CDT us Ben Hooper MD LAB - CHEMISTRY ORDERABLES Griselda johnson Result [facility] [address] [place] [address], [place] [phone] from Last 3 Months or Most Recently Relevant to Health Maintenance Insurance MEDICARE Advance Directives * Full Code (Latest Code Status on File) Date Activated Date Inactivated Comments 08/29/2020 8:39 AM 08/30/2020 7:27 PM
--- OUTSIDE RECORDS SUMMARY | 2025-01-25 09:59 | XMS_ITS | Encounter Summary ---
Author Organization [facility] Health Address [address] [place] [address] Care Team Providers Care Laydown Machine Operator Name Role Phone Unavailable Primary Care Provider Unavailabl e Encounter Details Date Type Department Care Team (Late st Contact Info) Description 08/28/2020 Ophth Exam [facility] [address] [place] [phone] Tuan Law MD [address] [place] [address] [place] [address] Social History Tobacco Use Types Packs/Day Years [...]
--- OUTSIDE RECORDS SUMMARY | 2025-01-25 09:59 | XMS_ITS | Encounter Summary ---
Author Organization [facility] Health Address [address] [place] [address] Care Team Providers Care Hoop Punch And Coiler Operator Name Role Phone Unavailable Primary Care Provider Unavailabl e Encounter Details Date Type Department Care Team (Late st Contact Info) Description 08/30/2020 Ophth Exam [facility] [address] [place] [address] Carlota Barrow MD No info available Social [...]
== END 2025-01-25 09:31 | disposition home or self-care (01) ==
PROVIDERS: PCP Family Medicine; Visit Provider Family Medicine
DX: R91.1 Solitary pulmonary nodule (principal)
CPT/HCPCS: 71250

== ENCOUNTER 2025-02-22 13:34 | Outpatient (CLI) | payer MEDICAID, SELFPAY ==
--- NOTE | ~2025-02-22 | CT_ITS ---
EXAMINATION: CT lumbar spine wo con DATE: 02/23/2025 15:47 CDT INDICATION: Chronic left-sided low back pain. TECHNIQUE: Computed tomography (CT) of the lumbar spine was performed without intravenous contrast. The dose-length product was 679.22 mGy-cm. COMPARISON: None FINDINGS: Lumbar vertebral body heights are within normal limits. No compression fracture in the lumbar spine Moderate to severe intervertebral disc space narrowing at the L5-S1 level. Vacuum discs at the L2-L3, L3-L4, L4-L5 and L5-S1 levels. Grade 1 anterolisthesis of L4 on L5. Indeterminate 8 mm sclerotic lesion in the L1 vertebral body. At the L2-L3 level, there is a small broad-based disc bulge causing mild narrowing of the spinal canal and mild narrowing of the bilateral neural foramen. At the L3-4 level, there is a small broad-based disc bulge with degenerative change in the facet joints causing mild narrowing of the spinal canal and mild narrowing of the bilateral neural foramen. At the L4-L5 level, there is a moderate-sized broad-based disc bulge with degenerative change in the facet joints causing moderate narrowing of the spinal canal. Mild narrowing of the bilateral neural foramen. At the L5-S1 level, there is a small broad-based disc bulge with degenerative change in the facet joints causing mild to moderate narrowing of the spinal canal and mild narrowing of the bilateral neural foramen. IMPRESSION: 1. No compression fracture in the lumbar spine. 2. Moderate to severe intervertebral disc space narrowing at the L5-S1 level. Vacuum discs at the L2-L3, L3-L4, L4-L5 and L5-S1 levels. 3. Grade 1 anterolisthesis of L4 on L5. 4. Indeterminate 8 mm sclerotic lesion in the L1 vertebral body. Differential includes bone island (which is statistically most likely) or sclerotic metastatic bone lesion. A total body bone scan is recommended. 5. Multilevel discogenic and degenerative change in the lumbar spine as detailed above. If symptoms persist or worsen, consider a short-term follow-up study or additional imaging for further assessment. Reviewed, dictated and finalized at location Q. IMPRESSION: 1. No compression fracture in the lumbar spine. 2. Moderate to severe intervertebral disc space narrowing at the L5-S1 level. V acuum discs at the L2-L3, L3-L4, L4-L5 and L5-S1 levels. 3. Grade 1 anterolisthesis of L4 on L5. 4. Indeterminate 8 mm sclerotic lesion in the L1 vertebral body. Differential i ncludes bone island (which is statistically most likely) or sclerotic metastati c bone lesion. A total body bone scan is recommended. 5. Multilevel discogenic and degenerative change in the lumbar spine as detaile d above. If symptoms persist or worsen, consider a short-term follow-up study or additio nal imaging for further assessment.
--- NOTE | ~2025-02-22 | CT_ITS ---
EXAMINATION: CT pelvis wo con DATE: 02/22/2025 14:07 INDICATION: Chronic left-sided low back pain TECHNIQUE: High resolution computed tomography (CT) of the pelvis was performed without intravenous contrast. Additional sagittal and coronal reconstructions were performed. Automated exposure control and iterative reconstruction technique were employed. The dose-length product was 503.50 mGy-cm. 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 Persistent sclerosis of the remaining femoral head consistent with secondary osteonecrosis. Lucent tracks at the left femoral head and intertrochanteric proximal left femur consistent with an earlier, since removed fixation screws. The main left femoral fragment is displaced cephalad and posteriorly relative to the femoral head fragment which remains normally centered in the left acetabulum. No acute fractures. Chondrocalcinosis and mild osteoarthritis at the bilateral hips. Mild to moderate bilateral sacroiliac osteoarthritis. Severe lower lumbar spondylosis with facet osteoarthritis severe bilaterally at L4-L5 and moderate bilaterally at L5-S1. Bladder is normal. The uterus is not identified and has likely been surgically resected. Visualized portions of bowels are unremarkable. No free fluid in the pelvis. No pathologically enlarged pelvic or inguinal lymphadenopathy. IMPRESSION: 1. 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 2. Sclerosis of the left femoral head fragment consistent with secondary osteonecrosis. 3. Degenerative skeletal changes including severe lower lumbar spondylosis and mild to moderate bilateral sacroiliac and mild bilateral hip osteoarthritis. Reviewed, dictated and finalized at location A. IMPRESSION: 1. 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 2. Sclerosis of the left femoral head fragment consistent with secondary osteon ecrosis. 3. Degenerative skeletal changes including severe lower lumbar spondylosis and mild to moderate bilateral sacroiliac and mild bilateral hip osteoarthritis.
--- OUTSIDE RECORDS SUMMARY | 2025-02-22 15:13 | XMS_ITS | Clinical Summary ---
Author Organization [facility] Address [address] [place] [address] Care Team Providers Care Family Consultant Name Role Phone Ese Simms SUSTAINABILITY PURCHASING AGENT Primary Care Provider [phone] Allergies Active Allergy Reactions Criticality Noted Date Comments Codeine Vomiting,Unknown 08/28/2020 Medications acetaminophen (TYLENOL) 500 MG tablet Take 2 tablets (1,000 mg total) by mouth every 4 (four) hours as needed for Pain. Active olmesartan (BENICAR) 40 MG tabletIndication s:Primary hypertension Take 1 tablet (40 mg total) by mouth daily. 90 tablet 1 5 025 Active varenicline, starter pack, (CHANTIX STARTING MONTH ) 0.5 MG X 11 & 1 MG X 42 tabletIndication s:Cigarette nicotine dependence with other nicotine-induced disorder Take one 0.5 mg tab by mouth once a day for 3 days, then take one 0.5 mg tab twice a day for 4 days, then take one 1 mg tab twice a day. 53 each 5 Active Additional Information Patient not taking.Reported on 02/01/2025 amLODIPine (NORVASC) 5 MG tabletIndication s:Benign essential hypertension Take 1 tablet (5 mg total) by mouth daily. 30 tablet 2 Active zoster vaccine (SHINGRIX) (SHINGRIX) injectionIndicat ions:Need for shingles vaccine Inject 0.5 mLs into the muscle once for 1 dose. 1 each 5 025 Active Problems Problem Noted Date Diagnosed Date [...] for 01/19/2025 for patient to complete at [facility]. Need for shingles vaccine 10/05/2024 Overview (10/05/2024): 10/05/2024: Patient is never previously had shingles vaccine. She reports having chickenpox as a child Assessment & Plan (10/05/2024 4:56 PM CDT): Recommend 2 dose shingles vaccine series. Patient was counseled regarding the recommendation and she is agreeable to receive. Have sent Shingrix first dose to patient's local [facility]. She was given [facility] VIS to review. Colon cancer screening 10/05/2024 [...] of pharmacy that delivers medication straight to [facility]. Left hip pain 05/25/2024 Overview (05/25/2024): 05/25/2024: Left hip pain likely related to unfixed fracture of left hip. She reports she takes Tylenol. See under acetaminophen abuse. Assessment & Plan (05/25/2024 5:27 PM SEAFOOD CLERK): In order to avoid or try to avoid systemic complications from NSAIDs in the setting of chronic kidney disease, I would like patient to try topical Voltaren gel 2 g up to 4 times daily to her left hip as this is the primary cause of pain she experiences. Her son reports they will purchase this [id number]. Cigarette nicotine dependenc e with other nicotine-induced [...] and her sons are agreeable. Ordered to [facility]. Assessment & Plan (09/07/2024 5:21 PM CDT): Discussed with patient that we could start medication such as Chantix. She is counseled on side effects of this medication. She was sent in starter pack to [facility] pharmacy. She is counseled to stop smoking 14 days after starting Chantix prescription. Assessment & Plan (05/25/2024 5:22 PM SEAFOOD CLERK): She is counseled to work on smoking cessation as she cannot have surgery on left hip without smoking cessation. Assessment & Plan (04/20/2024 12:22 PM SEAFOOD CLERK): Patient counseled at length on smoking cessation [...] needed. Assessment & Plan (04/20/2024 12:20 PM SEAFOOD CLERK): She is counseled to not take more [...] in her left hip [facility] participated twice in physical therapy. Her [...] minutes. Assessment & Plan (05/25/2024 5:23 PM SEAFOOD CLERK): Counseled again to not take more than 4000 mg of acetaminophen/Tylenol in 24- hour period. Assessment & Plan (04/20/2024 12:28 PM SEAFOOD CLERK): She is counseled to not take more [...] testing ordered for early July 2024 at [facility] Assessment & Plan (05/25/2024 5:25 PM SEAFOOD CLERK): Counseled patient that I suspect at this [...] hypertension. Assessment & Plan (04/21/2024 10:27 AM SEAFOOD CLERK): Suspect CKD especially in the setting of [...] obstructive pulmonar y disease, unspecified COPD type 04/20/2024 Overview (04/20/2024): Initial visit 04/20/2024: Patient denies previous history of COPD. She reports she does have a productive cough regularly. Assessment & Plan (04/20/2024 12:46 PM SEAFOOD CLERK): Suspect patient has COPD due to longstanding [...] per chart review of bilateral fundus at [facility] by Tuan Law MD. 09/07/2024: She reports she went [facility]. She reports she was told the back of her eye has some damage. She was told to return in February 20. Assessment & Plan (09/07/2024 5:27 PM CDT): Requesting records from [facility] Primary hypertension 08/29/2020 Overview (11/09/2024): Regimen: Olmesartan [...] office. Refill olmesartan 40 mg daily. Per PDMP review, last refill was for olmesartan 20 [...] 2024. Assessment & Plan (05/25/2024 5:21 PM SEAFOOD CLERK): Blood pressure is elevated in office today. Like to increase olmesartan to 40 mg daily as patient's blood pressure is elevated and she has moderately increased microalbumin to creatinine ratio. She is instructed to use blood pressure measuring device to take measurements daily and bring in log and device at next appointment in 2 weeks. Assessment & Plan (04/20/2024 12:46 PM SEAFOOD CLERK): Blood pressure is significantly elevated today in [...] Will give Prevnar 20. She was given CDC VIS to review. Counseled on vaccine side effects. Vision changes 08/29/2020 04/20/2024 Overview (04/20/2024): Initial visit 04/20/2024: Per chart review, patient was seen at [facility] and vision changes improved and were suspected to be secondary to hypertensive emergency. Was recommended that she have carotid Doppler in the setting of Ocular ischemic syndrome. Patient reports that she did not have done. Encounters Date Type Department Care Team Description 02/01/2025 10:20 AM CDT Office Visit [facility] - [address] [place] [address] Ese Simms, JUDITH Hypertension 02/01/2025 Travel 01/27/2025 Orders Only [facility] - [address] [place] [address] Ese Simms SUSTAINABILITY PURCHASING AGENT 01/25/2025 Scan [facility] Scanned, [facility] CT (SCAN) 11/24/2024 Scan [facility] Scanned, [facility] 11/22/2024 Scan [facility] Scanned, [facility] from Last 3 Months Immunizations Immunization Administration [...] Used Date Smoking Tobacco: Every Day Cigarettes 1 40.8 Started: 04/20/1984 Smokeless Tobacco: Never Tobacco Cessation:Ready to Q uit: Not Asked; Counseling Given: No Alcohol Use Standard Drinks/Week Comments Not Currently 0 (1 standard drink = 0.6 oz pur e alcohol) Comments No Sex and Gender Information Value Date Recorded Sex Assigned at Female 09/07/2024 3:37 PM CDT Legal Sex Female 8:12 AM SEAFOOD CLERK Gender Identity Female 09/07/2024 3:37 PM CDT Sexual Orientation Not on file Last Filed Vital Signs Vital Sign Reading Time Taken Comments Blood Pressure 140/80 02/01/2025 7:18 PM CDT Pulse 93 02/01/2025 10:33 AM CDT Temperature 36.3 C (97.4 F) 02/01/2025 10:33 AM CDT Respiratory Rate 18 02/01/2025 10:33 AM CDT Oxygen Saturation 96% 02/01/2025 10:33 AM CDT Inhaled Oxygen Concentration - - Weight 77.6 kg (171 lb) 11/09/2024 10:07 AM CDT Height 162.6 cm (5' 4) 02/01/2025 10:33 AM CDT Body Mass Index 29.35 11/09/2024 10:07 AM CDT Plan of Treatment Upcoming Encounters Date Type Department Care Team (Late st Contact Info) Description 03/15/2025 11:40 AM SEAFOOD CLERK Office Visit [facility] - [place] [address] [place], [place] [id number] Ese Simms, SUSTAINABILITY PURCHASING AGENT [address] [place] [address] Health Maintenance Due Date Last Done Comments Colorectal Cancer Screening Colonoscopy (10 Years) 1950 Mammogram Screening 1990 Lung Cancer Screening 02/29/2000 Zoster Vaccines (1 of 2) 02/29/2000 RSV Immunization or 60+ Years (1 - Risk 60-74 years 1-dose series) 2010 Dexa Scan (General) 2015 PHQ-2 (Physician [place]) 04/29/2024 COVID-19 Vaccine (3 - 2024-2 6 season) 2024 12/04/2020, 11/13/2020 Influenza Adult (#1) 2025 DTaP, Tdap and Td Vaccines ( 2 - Td or Tdap) 09/07/2034 09/07/2024 Pneumococcal Vaccine: 50+ Years Completed 09/07/2024 Hepatitis C Completed 11/09/2024 Hepatitis A Vaccines Aged Out No long er eligible based on patient's age to complete this topic Meningococcal B Vaccine Aged Out No l onger eligible based on patient's age to complete this topic Meningococcal Vaccine Aged Out No rory clarissa eligible based on patient's age to complete this topic RSV Immunizations Under 20 Months Aged Out No longer eligible b ased on patient's age to complete this topic Procedures Procedure Name Priority Date/Time Associated Diagnosis Comments CT GENERIC 01/25/2025 HEPATITIS C ANTIBODY Routine 11/09/2024 10:55 AM CDT Encounter for hepatitis C screening test for low risk patient from Last 3 Months or Most Recently Relevant to Health Maintenance Results * CT GENERIC (01/25/2025) Anatomical Region Laterality Modality Other 01/25/2025 us [facility] Scanned SCANNING Final Resu lt * HEPATITIS C ANTIBODY (11/09/2024 10:55 AM CDT) HEPATITIS C AB NON-REACTI VE NON-REACT FABBY 11/10/2024 8:16 PM CDT [facility] Comment: ANTIBODIES TO HCV NOT DETECTED. DOES NOT EXCLUDE THE POSSIBILITY OF EXPOSURE TO HCV. 11/09/2024 10:5 5 AM CDT Stefany Shelton DO LABORATORY Final Result [facility] [address] [place] [address], [id number] from Last 3 Months or Most Recently Relevant to Health Maintenance Insurance MEDICARE PART A MEDICAID Care Teams Family Consultant Relationship Specialty Start Date End Date Ese Simms NP [address] [address] [place] [address] PCP - General NURSE PRACTITIONER 12/23/24
--- OUTSIDE RECORDS SUMMARY | 2025-02-22 15:13 | XMS_ITS | Encounter Summary ---
Author Organization [facility] Address [address] [place] [address] Care Team Providers Care Equipment Analyst Name Role Phone Unavailable Primary Care Provider Unavailabl e Encounter Details Date Type Department Care Team (Late st Contact Info) Description 08/29/2020 Ophth Exam [facility] [address] [facility], [place] [address] Keeley Feng MD [address] [facility] [address] [place] [address] Social History Tobacco Use Types [...]
--- OUTSIDE RECORDS SUMMARY | 2025-02-22 15:13 | XMS_ITS | Encounter Summary ---
Author Organization [facility] Address [address] [facility] [place] [address] Care Team Providers Care Senior Network Security Engineer Name Role Phone Unavailable Primary Care Provider Unavailabl e Encounter Details Date Type Department Care Team (Late st Contact Info) Description 08/28/2020 Ophth Exam [facility] [address] [place] [phone] Tuan Law MD [address] [place] [address] [place] [address] Social History Tobacco Use Types Packs/Day Years [...] on file documented as of this encounter Functional Status documented as of this encounter Plan of Treatment Not on file documented as of this encounter Visit Diagnoses Not on filedocumented in this encounter Additional Health Concerns Infection Onset Date Last Indicated Resolved Time COVID-19 Under Investigation 08/29/2020 08/29/2020 08/29/2020 7:38 AM CDT documented as of this encounter
--- OUTSIDE RECORDS SUMMARY | 2025-02-22 15:13 | XMS_ITS | Clinical Summary ---
Author Organization [facility] Address [address] [place] [address] Care Team Providers Care Sterile Process Coordinator Name Role Phone Unavailable Primary Care Provider Unavailabl e Source Comments [facility],non-owned Affiliates and Associated Physician Practices is amultiple site organization consisting of ambulatory clinics and hospital sitesin [place], [place], [place] and [place]. This disclosure is being madepursuant to the Care Everywhere program and may not contain all information available regarding this patient. Last updated 18.[facility] [employer] Allergies Active Allergy Reactions Criticality Noted Date [...] COMPREHENSIVE METABOLIC PANEL (08/30/2020 3:43 AM CDT) [facility] BUN 20 7 - 26 mg/dL 08/30/2020 4:19 AM [facility] Creatinine 1.0 0.6 - 1.2 mg/dL 08/30/2020 4:19 AM [facility] Sodium 142 136 - 145 mmol/L 08/30/2020 4:19 AM [facility] Potassium 4.0 3.5 - 4.5 mmol/L 08/30/2020 4:19 AM [facility] Comment: Hemolysis detected in this specimen. [...] 98 - 107 mmol/L 08/30/2020 4:19 AM [facility] CO2 19(L) 22 - 29 mmol/L 08/30/2020 4:19 AM [facility] Glucose 114 70 - 115 mg/dL 08/30/2020 4:19 AM [facility] Calcium 9.4 8.4 - 10.2 mg/dL 08/30/2020 4:19 AM [facility] Protein Total 8.0 6.0 - 8.3 g/dL 08/30/2020 4:19 AM [facility] Comment:Hemolysis detected i n this specimen. Hemolysis is known to cause elevations in this analyte. Caution should be exercised in the interpretation of this result. Recommend repeat testing if clinically indicated. Albumin 4.2 3.4 - 5.0 g/dL 08/30/2020 4:19 AM [facility] Bilirubin Total 0.4 0.2 - 1.2 mg/dL 08/30/2020 4:19 AM [facility] Alkaline Phosphatase 49 40 - 150 Units/L 08/30/2020 4:19 AM [facility] ALT 33 0 - 55 Units/L 08/30/2020 4:19 AM [facility] AST 34 5 - 34 Units/L 08/30/2020 4:19 AM [facility] Comment: Hemolysis detected in this specimen. [...] 19(H) 8 - 18 08/30/2020 4:19 AM [facility] BUN/Creatinine Ratio 20 7 - 23 08/30/2020 4:19 AM [facility] Osmolality Calculated 297 270 - 300 mOsm/kg 08/30/2020 4:19 AM [facility] Albumin/Globulin Ratio 1.1 1.1 - 2.3 08/30/2020 4:19 AM [facility] eGFR 55(L) >60 mL/min/1. 73 m2 08/30/2020 4:19 AM [facility] Blood BLOOD SPECIMEN / Unknown Venipuncture / Unknown 08/30/2020 3:43 AM CDT 08/30/2020 3:49 AM CDT us Ben Hooper MD LAB - CHEMISTRY ORDERABLES Griselda johnson Result [facility] [address] [place] [address], [place] [phone] * (ABNORMAL) LIPID PROFILE (08/29/2020 6:11 PM CDT) Cholesterol Total 196 <200 mg/dL 08/29/2020 6:44 PM T [facility] HDL 63 >40 mg/dL 08/29/2020 6:44 PM T [facility] Comment: ATP III Classification of HDL Cholesterol: <40 mg/dL: Considered a major risk factor. >60 mg/dL: Considered a negative risk factor. LDL Calculated 123(H) <100 mg/dL 08/29/2020 6:44 PM T [facility] Comment: ATP III Classification of LDL Cholesterol: <100 mg/dL: Optimal 100 - 129 mg/dL: Near Optimal/Above Optimal 130 - 159 mg/dL: Borderline High 160 - 189 mg/dL: High >190 mg/dL: Very High Triglycerides 50 <150 mg/dL 08/29/2020 6:44 PM T [facility] Comment: ATP III Classification of Triglycerides: <150 mg/dL: Normal 150 - 199 mg/dL: Borderline High 200 - 400 mg/dL: High >500 mg/dL: Very High Blood BLOOD SPECIMEN / Unknown Venipuncture / Unknown 08/29/2020 6:11 PM CDT 08/29/2020 6:16 PM CDT us Ben Hooper MD LAB - CHEMISTRY ORDERABLES Griselda johnson Result [facility] [address] [place] [address], [place] [phone] from Last 3 Months or Most Recently Relevant to Health Maintenance Insurance MEDICARE Advance Directives * Full Code (Latest Code Status on File) Date Activated Date Inactivated Comments 08/29/2020 8:39 AM 08/30/2020 7:27 PM
--- OUTSIDE RECORDS SUMMARY | 2025-02-22 15:13 | XMS_ITS | Patient Health Record ---
Author Organization [facility]tazar, [facility] Address [address] [place], [place] [address] Care Team Providers Care Airplane Pilot Photogrammetry Name Role Phone José Miguel Craft Primary [...] Notes Problem Closed fracture of lateral malleolus (47462499) Nondisplaced fracture of lateral malleolus of left fibula, initial encounter for closed fracture (S82.65XA) Active confirmed Problem Sprain of deltoid ligament of ankle (01746508) Sprain of deltoid ligament of left ankle, initial encounter (S93.422A) Active confirmed Plan Of Treatment No Information Insurance Providers Payer Name Payer Address Payer Phone Subscriber Number Group Number Insured Name Patient Relationship to Insured Coverage Start Date Coverage End Date [facility] [address] [place] [address] [id number] Amy Bee Self - patient is the insured
--- OUTSIDE RECORDS SUMMARY | 2025-02-22 15:13 | XMS_ITS | Encounter Summary ---
Author Organization [facility] Address [address] [place] [address] Care Team Providers Care Adhesion Tester Name Role Phone Unavailable Primary Care Provider Unavailabl e Encounter Details Date Type Department Care Team (Late st Contact Info) Description 08/30/2020 Ophth Exam [facility] [address] [place] [address] Carlota Barrow MD No info available Social [...]
== END 2025-02-22 13:35 | disposition home or self-care (01) ==
PROVIDERS: PCP Nurse Practitioner; Visit Provider Nurse Practitioner
DX: M43.16 Spondylolisthesis, lumbar region (principal); G89.29 Other chronic pain; Z87.81 Personal history of (healed) traumatic fracture
CPT/HCPCS: 72131; 72192

== ENCOUNTER 2025-03-02 09:24 | Emergency (ER) | payer MEDICAID, SELFPAY ==
[2025-03-02] VITALS (7 sets, daily range): BP systolic 136–189; BP diastolic 76–102; PULSE 97–113; RESP 16–20; TEMP 36.4; O2SAT 95–98
--- NOTE | ~2025-03-02 | XR_ITS ---
Examination: XR chest 2V Clinical History: URI Comparison: CT chest 10/19/2024 Technique: PA and Lateral Findings: Cardiomediastinal silhouette normal size and configuration. Left lower lobe pulmonary nodule as on prior CT. No focal airspace consolidation. No acute bony abnormality. IMPRESSION: 1. No acute cardiopulmonary findings. Reviewed, dictated and finalized at location [facility]
--- NOTE | 2025-03-02 10:02 | ECG_ITS ---
Test Date: 2025-03-02 10:40:12 Measurements Intervals [place] Rate: 100 P: 51 RI: 152 QRS: 8 QRSD: 82 T: 30 QT: 354 QTc: 458 Interpretive Statements SINUS TACHYCARDIA ABNORMAL RHYTHM ECG No previous ECG available for comparison Electronically Signed On 03-02-2025 21:21:39 WASHING MACHINE INSTALLER by Sol Em M.D.
--- NOTE | 2025-03-02 10:04 | ED_ITS ---
HPI - General Adult General Chief complaint: Upper Respiratory Infection Stated complaint: body aches/headache Time Seen by Provider: 03/02/25 09:48 History of Present Illness HPI narrative: 75-year-old female presenting from [facility] states she woke up at about 1:00 a.m. and was hot and began to vomit. Stated she vomited about 7 or 8 times and endorses that it was a yellow color. She denies fevers/chills, chest pain/shortness of breath, diarrhea/abdominal pain, and nausea. Has a wet cough at baseline. Patient is alert and oriented x4. She states she gets around on her own via an electric cart and is able to take care of herself. She has not taken any medicine today. Related Data Allergies Allergy/AdvReac Type Severity Reaction Status Date / Time tramadol AdvReac Intermediate Nausea Verified 03/02/25 09:39 codeine AdvReac Nausea and Verified 03/02/25 09:39 Vomiting Review of Systems 2 Review of Systems: All systems reviewed & are unremarkable except as noted in HPI and below PMFSH Past Medical History Medical History Hypertension Tobacco dependence Subcapital fracture of left hip (06/2022) Surgical History Surgical History History of open reduction and internal fixation (ORIF) procedure Repair left subcapital hip fracture. Family History Family History Other Heart disease Hypertension Social History Social History Social History: Surrogate medical decision maker: Miguel Hines, son. Code status: Full code. Smoking packs per day: 1 Smoking cigarettes per day: 20.0 Years smoked: 43 Smoking pack-years: 43.00 Smoking status: Former smoker Tobacco type: cigarettes Smoking end date: 04/01/23 Additional smoking assessment comments: DENIES ANY FORM OF TOBACCO USE Alcohol intake: never Substance use: never Substance use type: does not use Do You Feel Safe in your Home?: Yes Lack of Transportation: No Lack of Food: Never True Current Housing: I Have Housing Concerned About Future Housing: No Difficulty Paying Gas/Electric Bills: No Difficulty Paying for Meds: No Currently Unemployed: YES Education: High School Diploma/GED Difficulty w/ Childcare or Family Care: No Living arrangements: with family Additional living arrangements comments: Lives in [place] with son. Occupation/Education: retired Additional occupation/education comments: Retired. Spiritual care concerns: No Exam 2 Narrative: GENERAL: Well-appearing, well-nourished, and in no acute distress. HEAD: Normocephalic, atraumatic. EYES: PERRLA and EOMI. ENT: Nares clear, no rhinorrhea or epistaxis. Mucous membranes moist. Oropharynx without tonsillar hypertrophy exudate or other lesions. Bilateral TMs pearly mix non-bulging NECK: Supple. No adenopathy or masses. No carotid bruits or JVD CHEST: Clear to auscultation. No respiratory distress. No wheezes rales or rhonchi HEART: Minor sinus tach at 104. No murmur heard. Normal peripheral pulses. ABDOMEN: Soft, nontender, nondistended, normal active bowel sounds. EXTREMITIES: Normal range of motion. Bilateral 2+ pitting edema to mid-dickson. SKIN: Warm, dry, no rash. NEURO: No focal deficits. Alert and oriented x3. PSYCH: Normal mood and affect Course Vital Signs Vital signs: Vital Signs Temperature 97.6 F 03/02/25 09:28 Pulse Rate 107 H 03/02/25 09:28 Respiratory Rate 20 03/02/25 09:28 Blood Pressure 177/102 H 03/02/25 09:28 Pulse Oximetry 95 03/02/25 09:28 Oxygen Delivery Room Air 03/02/25 09:28 Temperature 97.6 F 03/02/25 09:28 Pulse Rate 99 03/02/25 14:21 Respiratory Rate 16 03/02/25 14:21 Blood Pressure 150/76 H 03/02/25 14:21 Pulse Oximetry 98 03/02/25 14:21 Oxygen Delivery Room Air 03/02/25 09:53 Medical Decision Making MDM Narrative Medical decision making narrative: 75-year-old female presenting from [facility] states she woke up at about 1:00 a.m. and was hot and began to vomit. Stated she vomited about 7 or 8 times and endorses that it was a yellow color. She denies fevers/chills, chest pain/shortness of breath, diarrhea/abdominal pain, and nausea. Has a wet cough at baseline. Patient is alert and oriented x4. She states she gets around on her own via an electric cart and is able to take care of herself. She has not taken any medicine today. Upon presentation patient is mildly tachycardic, hypertensive, and has 2+ bilateral pitting edema up to mid dickson. She states that she is cold but is otherwise sitting comfortably with no complaints. Labs reveal no white blood cell count but 86% neutrophil predominance and a BNP of 218. COVID flu RSV negative. Patient endorses not taking her blood pressure medicine this morning. Administered 1 L of fluids and a dose of clonidine which is her at-home blood pressure medicine. Patient's blood pressure and heart rate both subsequently improved. Chest x-ray shows no acute cardiopulmonary findings. Upon reassessment patient states she is mildly nauseous. Administered Zofran and nausea improved. Patient is sitting comfortably and is amenable with discharge back to [facility]. Advised to f/u closely with PCP. Medical Records Medical records reviewed: Yes I reviewed the external patient's medical records. Vital Signs Vital Signs: Vital Signs Temperature 97.6 F 03/02/25 09:28 Pulse Rate 107 H 03/02/25 09:28 Respiratory Rate 20 03/02/25 09:28 Blood Pressure 177/102 H 03/02/25 09:28 Pulse Oximetry 95 03/02/25 09:28 Oxygen Delivery Room Air 03/02/25 09:28 Temperature 97.6 F 03/02/25 09:28 Pulse Rate 99 03/02/25 14:21 Respiratory Rate 16 03/02/25 14:21 Blood Pressure 150/76 H 03/02/25 14:21 Pulse Oximetry 98 03/02/25 14:21 Oxygen Delivery Room Air 03/02/25 09:53 Lab Data Lab results reviewed: Yes I reviewed the patient's lab results. 03/02/25 10:24 03/02/25 10:24 Labs: Lab Results 03/02/25 03/02/25 Range/Units 09:45 10:24 WBC 9.8 (4.5-10.0) K/mm3 RBC 4.65 (4.2-5.4) M/mm3 Hgb 14.8 (12.0-15.0) g/dL Hct 44.2 (37.0-47.0) % MCV 95.1 (80-100) fl MCH 31.8 (26-34) pg MCHC 33.5 (32-36) g/dl RDW 15.0 H (11.5-14.5) % Plt Count 302 (150-375) k/mm3 MPV 9.0 (7.4-10.4) fl Immature Gran % (Auto) 0.3 (0-0.5) % Neut % (Auto) 86.4 H (45.5-73.1) % Lymph % (Auto) 10.1 L (18.3-44.2) % Ray % (Auto) 3.0 (2.6-8.5) % Eos % (Auto) 0.0 (0-4.4) % Baso % (Auto) 0.2 (0.2-1.2) % Lymph # (Auto) 0.98 (0.9-3.2) K/mm3 Ray # (Auto) 0.3 (0.1-0.6) K/mm3 Eos # (Auto) 0.0 (0-0.3) K/mm3 Baso # (Auto) 0.0 (0.0-0.1) K/mm3 Abs Immat Gran (auto) 0.03 (0.00-0.031) K/mm3 Absolute Neuts (auto) 8.4 H (1.3-6.7) K/mm3 Absolute Nucleated RBC 0.000 (0.0-0.012) K/mm3 Nucleated RBC % 0.0 (0.0-0.2) % D-Dimer 0.46 (<0.48) ug/mL Sodium 139 (137-145) mmol/L Potassium 4.0 (3.4-5.0) mmol/L Chloride 104 (98-107) mmol/L Carbon Dioxide 24 (22-30) mmol/L Anion Gap 11 (4-12) mmol/L BUN 18 H (7-17) mg/dL Creatinine 0.67 L (0.7-1.0) mg/dL Estim Creat Clear Calc 64 ml/min Estimated GFR > 60 (59 - ) Glucose 136 H (65-110) mg/dL Calcium 9.6 (8.4-10.2) mg/dL Total Bilirubin 0.4 (0.2-1.3) mg/dL AST 39 H (14-36) U/L ALT 42 H (6-35) U/L Alkaline Phosphatase 51 (38-126) U/L NT-Pro-B Natriuret Pep 218 H (19.9-100) pg/mL Total Protein 9.2 H (6.3-8.2) g/dL Albumin 4.9 (3.5-5.1) g/dL Influenza A (RT-PCR) Negative (Negative) Influenza B (RT-PCR) Negative (Negative) RSV (RT-PCR) Negative (Negative) SARS-CoV-2 RNA (RT-PCR) Negative (Negative) Imaging Data Attestation: I personally reviewed and interpreted this imaging study as follows: Radiologist's impression: ITS Impressions Chest X-Ray 03/02/25 12:23 IMPRESSION: 1. No acute cardiopulmonary findings. ECG Data EKG #1: Attestation: I personally reviewed and interpreted this ECG as follows: ECG completion date: 03/02/25 ECG completion time: 10:40 EKG Interpretation: tachycardia, sinus rhythm and no ST changes Discharge Plan Discharge Clinical Impression: Acute viral syndrome Vomiting Qualifiers: Vomiting type: unspecified Nausea presence: with nausea Qualified Code(s): R 11.2 - Nausea with vomiting, unspecified Patient Disposition: NH Care Home/Asst Living Condition: Stable Instructions: Viral Syndrome (ED) Additional Instructions: May take medications as needed and directed. Increase fluid intake. Stay on clear liquid diet until nausea and vomiting have improved. Once nausea and vomiting have resolved, you may start on a bland diet such as rice, applesauce, toast, or crackers. Advise close follow up with your doctor for further care. Come back to the emergency department if needed for worsening symptoms, severe pain, fevers, chills, rectal bleeding, or vomiting blood. Patient Language: Occitan Prescriptions: New ondansetron 4 mg tablet,disintegrating 4 mg PO Q8H PRN (Reason: nausea and vomiting) Qty: 10 0RF No Action famotidine [Acid Controller] 20 mg tablet 20 mg PO DAILY 30 Days Qty: 30 0RF cephalexin 500 mg capsule 500 mg PO Q12H 5 Days Qty: 10 0RF ondansetron 4 mg tablet,disintegrating 4 mg PO Q8H PRN (Reason: nausea and vomiting) Qty: 10 0RF ondansetron 4 mg tablet,disintegrating 4 mg PO Q4H PRN (Reason: nausea and vomiting) 3 Days Qty: 10 0RF clonidine HCl 0.1 mg tablet See Rx Instructions .ROUTE .COMPLEX Qty: 60 0RF Dose Instruction: TAKE 1 TABLET BY MOUTH TWICE DAILY Rx Instructions: TAKE 1 TABLET BY MOUTH TWICE DAILY lidocaine [Lidocaine Pain Relief] 4 % Adhesive Patch,Medicated 1 patch transdermal DAILY Qty: 7 0RF gabapentin [Neurontin] 300 mg Capsule 300 mg PO QHS Qty: 30 0RF ondansetron 4 mg Tablet,Disintegrating 4 mg PO Q6H Qty: 28 0RF Eliquis 2.5 mg Tablet 2.5 mg PO Q12HR Qty: 30 0RF Patient Comments: PT STATES HAS NOT STARTED YET acetaminophen 500 mg Tablet 500 mg PO Q6HR Qty: 90 0RF Follow-up/Referrals: Demi,Ese Bearden APRN [Primary Care Provider, Unknown]
[2025-03-02 10:29] LABS: Hematocrit 44.2 % (37.0-47.0); Hemoglobin 14.8 g/dL (12.0-15.0); Immature Granulocyte Percent A 0.3 % (0-0.5); Lymphocytes Absolute Auto 0.98 K/mm3 (0.9-3.2); Mean Corpuscular HGB Conc 33.5 g/dl (32-36); Mean Corpuscular Hemoglobin 31.8 pg (26-34); Mean Corpuscular Volume 95.1 fl (80-100); Nucleated Red Blood Cells Absolute Auto 0.000 K/mm3 (0.0-0.012); Nucleated Red Blood Cells Perc 0.0 % (0.0-0.2); Platelet Count Result 302 k/mm3 (150-375); Red Blood Count 4.65 M/mm3 (4.2-5.4); White Blood Count 9.8 K/mm3 (4.5-10.0)
[2025-03-02 10:36] LABS: Influenza A QL RT-PCR Negative (Negative); Influenza B QL RT-PCR Negative (Negative); RSV RNA, RT-PCR Negative (Negative); SARS-CoV-2 RNA PCR Negative (Negative)
[2025-03-02 10:40] LABS: Alanine Aminotransferase 42 U/L (6-35); Albumin Level 4.9 g/dL (3.5-5.1); Alkaline Phosphatase 51 U/L (38-126); Anion Gap 11 mmol/L (4-12); Aspartate Amino Transferase 39 U/L (14-36); Bilirubin,Total 0.4 mg/dL (0.2-1.3); Blood Urea Nitrogen 18 mg/dL (7-17); Calcium 9.6 mg/dL (8.4-10.2); Carbon Dioxide 24 mmol/L (22-30); Chloride 104 mmol/L (98-107); Estimated CRCL calculation 64 ml/min; Estimated Glomerular Filt Rate > 60; Glucose 136 mg/dL (65-110); Potassium 4.0 mmol/L (3.4-5.0); Sodium 139 mmol/L (137-145); Total Protein 9.2 g/dL (6.3-8.2)
[2025-03-02 10:58] LABS: NT Pro B Type Natriuretic Pept 218 pg/mL (19.9-100)
--- OUTSIDE RECORDS SUMMARY | 2025-03-02 11:08 | XMS_ITS | Clinical Summary ---
Author Organization [facility] Address [address] [place] [address] Care Team Providers Care Paid Intern Name Role Phone Unavailable Primary Care Provider Unavailabl e Source Comments [facility],non-owned Affiliates and Associated Physician Practices is amultiple site organization consisting of ambulatory clinics and hospital sitesin [place], [place], [place] and [place]. This disclosure is being madepursuant to the Care Everywhere program and may not contain all information available regarding this patient. Last updated 18.[facility] [employer] Allergies Active Allergy Reactions Criticality Noted Date [...] COMPREHENSIVE METABOLIC PANEL (08/30/2020 3:43 AM CDT) [facility] BUN 20 7 - 26 mg/dL 08/30/2020 4:19 AM [facility] Creatinine 1.0 0.6 - 1.2 mg/dL 08/30/2020 4:19 AM [facility] Sodium 142 136 - 145 mmol/L 08/30/2020 4:19 AM [facility] Potassium 4.0 3.5 - 4.5 mmol/L 08/30/2020 4:19 AM [facility] Comment: Hemolysis detected in this specimen. [...] 98 - 107 mmol/L 08/30/2020 4:19 AM [facility] CO2 19(L) 22 - 29 mmol/L 08/30/2020 4:19 AM [facility] Glucose 114 70 - 115 mg/dL 08/30/2020 4:19 AM [facility] Calcium 9.4 8.4 - 10.2 mg/dL 08/30/2020 4:19 AM [facility] Protein Total 8.0 6.0 - 8.3 g/dL 08/30/2020 4:19 AM [facility] Comment:Hemolysis detected i n this specimen. Hemolysis is known to cause elevations in this analyte. Caution should be exercised in the interpretation of this result. Recommend repeat testing if clinically indicated. Albumin 4.2 3.4 - 5.0 g/dL 08/30/2020 4:19 AM [facility] Bilirubin Total 0.4 0.2 - 1.2 mg/dL 08/30/2020 4:19 AM [facility] Alkaline Phosphatase 49 40 - 150 Units/L 08/30/2020 4:19 AM [facility] ALT 33 0 - 55 Units/L 08/30/2020 4:19 AM [facility] AST 34 5 - 34 Units/L 08/30/2020 4:19 AM [facility] Comment: Hemolysis detected in this specimen. [...] 19(H) 8 - 18 08/30/2020 4:19 AM [facility] BUN/Creatinine Ratio 20 7 - 23 08/30/2020 4:19 AM [facility] Osmolality Calculated 297 270 - 300 mOsm/kg 08/30/2020 4:19 AM [facility] Albumin/Globulin Ratio 1.1 1.1 - 2.3 08/30/2020 4:19 AM [facility] eGFR 55(L) >60 mL/min/1. 73 m2 08/30/2020 4:19 AM [facility] Blood BLOOD SPECIMEN / Unknown Venipuncture / Unknown 08/30/2020 3:43 AM CDT 08/30/2020 3:49 AM CDT us Ben Hooper MD LAB - CHEMISTRY ORDERABLES Griselda johnson Result [facility] [address] [place] [address], [place] [phone] * (ABNORMAL) LIPID PROFILE (08/29/2020 6:11 PM CDT) Cholesterol Total 196 <200 mg/dL 08/29/2020 6:44 PM T [facility] HDL 63 >40 mg/dL 08/29/2020 6:44 PM T [facility] Comment: ATP III Classification of HDL Cholesterol: <40 mg/dL: Considered a major risk factor. >60 mg/dL: Considered a negative risk factor. LDL Calculated 123(H) <100 mg/dL 08/29/2020 6:44 PM T [facility] Comment: ATP III Classification of LDL Cholesterol: <100 mg/dL: Optimal 100 - 129 mg/dL: Near Optimal/Above Optimal 130 - 159 mg/dL: Borderline High 160 - 189 mg/dL: High >190 mg/dL: Very High Triglycerides 50 <150 mg/dL 08/29/2020 6:44 PM T [facility] Comment: ATP III Classification of Triglycerides: <150 mg/dL: Normal 150 - 199 mg/dL: Borderline High 200 - 400 mg/dL: High >500 mg/dL: Very High Blood BLOOD SPECIMEN / Unknown Venipuncture / Unknown 08/29/2020 6:11 PM CDT 08/29/2020 6:16 PM CDT us Ben Hooper MD LAB - CHEMISTRY ORDERABLES Griselda johnson Result [facility] [address] [place] [address], [facility] [phone] from Last 3 Months or Most Recently Relevant to Health Maintenance Insurance MEDICARE Advance Directives * Full Code (Latest Code Status on File) Date Activated Date Inactivated Comments 08/29/2020 8:39 AM 08/30/2020 7:27 PM
--- OUTSIDE RECORDS SUMMARY | 2025-03-02 11:08 | XMS_ITS | Patient Health Record ---
Author Organization José Miguel Baltazar, [facility] Address [address] [place], [place] [id number] Care Team Providers Care Ncr Operator Name Role Phone José Miguel Craft Primary Care Provider [phone] Allergies Allergen (clinical drug ingredient) Drug/Non [...] Notes Problem Closed fracture of lateral malleolus (87011699) Nondisplaced fracture of lateral malleolus of left fibula, initial encounter for closed fracture (S82.65XA) Active confirmed Problem Sprain of deltoid ligament of ankle (34692814) Sprain of deltoid ligament of left ankle, initial encounter (S93.422A) Active confirmed Plan Of Treatment No Information Insurance Providers Payer Name Payer Address Payer Phone Subscriber Number Group Number Insured Name Patient Relationship to Insured Coverage Start Date Coverage End Date [facility] [address] [place] [address] [id number] Amy Bee Self - patient is the insured
--- OUTSIDE RECORDS SUMMARY | 2025-03-02 11:08 | XMS_ITS | Encounter Summary ---
Author Organization [facility] Health Address [address] [place] [address] Care Team Providers Care Monitoring Specialist Name Role Phone Unavailable Primary Care Provider Unavailabl e Encounter Details Date Type Department Care Team (Late st Contact Info) Description 08/29/2020 Ophth Exam [facility] [address], [place] [address] Keeley Feng MD [address] [place] [address] Social History Tobacco Use Types [...]
--- OUTSIDE RECORDS SUMMARY | 2025-03-02 11:08 | XMS_ITS | Encounter Summary ---
Author Organization [facility] Health Address [address] [place] [address] Care Team Providers Care Chainstitch Felled Seam Operator Name Role Phone Unavailable Primary Care Provider Unavailabl e Encounter Details Date Type Department Care Team (Late st Contact Info) Description 08/28/2020 Ophth Exam [facility] [address] [place] [phone] Tuan Law MD [address] [place] [address] [place] [address] Social History Tobacco Use Types Packs/Day Years [...]
--- OUTSIDE RECORDS SUMMARY | 2025-03-02 11:08 | XMS_ITS | Encounter Summary ---
Author Organization [facility] Health Address [address] [place] [address] Care Team Providers Care Lead C Developer Name Role Phone Unavailable Primary Care Provider Unavailabl e Encounter Details Date Type Department Care Team (Late st Contact Info) Description 08/30/2020 Ophth Exam [facility] [address] [place] [address] Carlota Barrow MD No info available Social [...]
[2025-03-02] MEDS: ONDANSETRON INJ 4 MG/2 ML VIAL IV PUSH (12:48)
[2025-03-02] MEDS: SODIUM CHLORIDE 0.9% IV 1,000 ML 999 ML IV CONT (12:48)
== END 2025-03-02 15:55 ==
PROVIDERS: Emergency Medicine; PCP Nurse Practitioner
DX: B34.9 Viral infection, unspecified (principal); R11.2 Nausea with vomiting, unspecified; Z20.822 Contact with and (suspected) exposure to COVID-19; I10 Essential (primary) hypertension; Z87.891 Personal history of nicotine dependence; Z79.01 Long term (current) use of anticoagulants; Z79.899 Other long term (current) drug therapy; R00.0 Tachycardia, unspecified
CPT/HCPCS: 36415; 71046; 80053; 83880; 85025; 85380; 87637; 93005; 96361; 96374; 99284; A9270; J2405; J7030